=== PATIENT | male | born 1955 | race Caucasian/White ===

== ENCOUNTER 2016-10-04 15:15 | Emergency (ER) | payer SELFPAY ==
[2016-10-04] MEDS ORDERED: AMMONIA INHALANTS 10 AMPUL/BOX IH ONE ×2 (16:09→16:11)
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
[2016-10-04] MEDS ORDERED: IPRATROPIUM/ALBUTEROL 0.5-2.5 MG/3 ML AMPUL NEB ONE (16:15)
[2016-10-04 17:27] LABS: APPEARANCE,URINE CLEAR; BILIRUBIN,URINE NEGATIVE (NEGATIVE); GLUCOSE, URINE NEGATIVE (NEGATIVE); KETONES,URINE NEGATIVE (NEGATIVE); LEUKOCYTE ESTERASE,URINE NEGATIVE (NEGATIVE); NITRITE,URINE NEGATIVE (NEGATIVE); PROTEIN,URINE NEGATIVE (NEGATIVE); URINE SPECIFIC GRAVITY 1.002; UROBILINOGEN,URINE NEGATIVE mg/dL (<2.0)
[2016-10-04 17:29] LABS: ABSOLUTE BASOPHILS # (AUTO) 0.1 10^3/uL (0.0-0.2); ABSOLUTE EOSINOPHILS # (AUTO) 0.3 10^3/uL (0.0-0.6); ABSOLUTE LYMPHOCYTES (AUTO) 2.4 10^3/uL (0.5-4.7); ABSOLUTE MONOCYTES (AUTO) 0.5 10^3/uL (0.1-1.4); ABSOLUTE NEUT (AUTO) 3.3 10^3/uL (1.7-8.2); BASOPHILS % (AUTO) 0.8 % (0-2); EOSINOPHILS % (AUTO) 4.6 % (0-6); HEMOGLOBIN 14.4 g/dL (13.5-17.0); HGB HCT DIFFERENCE 0.2; LYMPHOCYTES % (AUTO) 36.3 % (13-45); MEAN CORPUSCULAR HEMOGLOBIN 32.2 pg (27.0-33.4); MEAN CORPUSCULAR HGB CONC 33.5 g/dL (32.0-36.0); MEAN CORPUSCULAR VOLUME 96 fl (80-97); MONOCYTES % (AUTO) 7.7 % (3-13); RED BLOOD COUNT 4.46 10^6/uL (4.35-5.55); RED CELL DISTRIBUTION WIDTH 13.3 % (11.5-14.0); SEGMENTED NEUTROPHILS % (AUTO) 50.6 % (42-78); WHITE BLOOD COUNT 6.6 10^3/uL (4.0-10.5)
[2016-10-04 17:42] LABS: URINE BARBITURATES SCREEN NEGATIVE; URINE METHADONE SCREEN NEGATIVE; URINE OPIATES LOW NEGATIVE; URINE PHENCYCLIDINE SCREEN NEGATIVE
[2016-10-04 18:17] LABS: ALANINE AMINOTRANSFERASE 31 U/L (21-72); ALBUMIN 4.2 g/dL (3.5-5.0); ALCOHOL 202 mg/dL (NONE DETECTED); ALKALINE PHOSPHATASE 105 U/L (38-126); ANION GAP 13 (5-19); ASPARTATE AMINO TRANSFERASE 31 U/L (17-59); BILIRUBIN,TOTAL 0.4 mg/dL (0.2-1.3); BLOOD UREA NITROGEN 12 mg/dL (7-20); CALCIUM 9.3 mg/dL (8.4-10.2); CARBON DIOXIDE 27 mmol/L (22-30); CHLORIDE 105 mmol/L (98-107); CREATININE RESULT 1.11 mg/dL (0.52-1.25); GLUCOSE 87 mg/dL (75-110); POTASSIUM 4.2 mmol/L (3.6-5.0); SODIUM 145.4 mmol/L (137-145); TOTAL PROTEIN 6.9 g/dL (6.3-8.2)
[2016-10-04 18:31] VITALS: BP 117/78
[2016-10-04] MEDS ORDERED: LORAZEPAM 0.5 MG TABLET PO ONE (19:10)
== END 2016-10-04 20:41 ==
LOC: ER 15:15
DX: R41.82 Altered mental status, unspecified (principal); R06.2 Wheezing; F10.229 Alcohol dependence with intoxication, unspecified; E03.9 Hypothyroidism, unspecified; K21.9 Gastro-esophageal reflux disease without esophagitis; Z88.0 Allergy status to penicillin; Z88.2 Allergy status to sulfonamides
CPT/HCPCS: 94640; 99285; 36415; 87040; 80307 ×2; 85025; 80053; 81001; 71010; 70450; J7620

== ENCOUNTER 2016-10-15 23:06 | Emergency (ER) | payer SELFPAY ==
[2016-10-15] MEDS ORDERED: IPRATROPIUM/ALBUTEROL 0.5-2.5 MG/3 ML AMPUL NEB ONE (23:27)
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
[2016-10-15 23:54] LABS: ABSOLUTE BASOPHILS # (AUTO) 0.1 10^3/uL (0.0-0.2); ABSOLUTE EOSINOPHILS # (AUTO) 0.3 10^3/uL (0.0-0.6); ABSOLUTE LYMPHOCYTES (AUTO) 3.6 10^3/uL (0.5-4.7); ABSOLUTE MONOCYTES (AUTO) 0.7 10^3/uL (0.1-1.4); ABSOLUTE NEUT (AUTO) 5.9 10^3/uL (1.7-8.2); BASOPHILS % (AUTO) 0.6 % (0-2); EOSINOPHILS % (AUTO) 2.6 % (0-6); HEMATOCRIT 42.5 % (37.9-51.0); HEMOGLOBIN 14.3 g/dL (13.5-17.0); HGB HCT DIFFERENCE 0.4; MEAN CORPUSCULAR HEMOGLOBIN 32.4 pg (27.0-33.4); MEAN CORPUSCULAR HGB CONC 33.7 g/dL (32.0-36.0); MEAN CORPUSCULAR VOLUME 96 fl (80-97); MONOCYTES % (AUTO) 6.9 % (3-13); RED BLOOD COUNT 4.42 10^6/uL (4.35-5.55); RED CELL DISTRIBUTION WIDTH 13.3 % (11.5-14.0); SEGMENTED NEUTROPHILS % (AUTO) 55.9 % (42-78); WHITE BLOOD COUNT 10.6 10^3/uL (4.0-10.5)
--- NOTE | 2016-10-16 00:05 | EKG REPORT ---
SEVERITY:- ABNORMAL ECG - SINUS RHYTHM LEFT ANTERIOR FASCICULAR BLOCK : Confirmed by: aDnay Queen 16-Oct-2016 00:03:38
[2016-10-16 00:13] LABS: ALANINE AMINOTRANSFERASE 34 U/L (21-72); ALBUMIN 4.5 g/dL (3.5-5.0); ALCOHOL 250 mg/dL (NONE DETECTED); ALKALINE PHOSPHATASE 101 U/L (38-126); ANION GAP 15 (5-19); ASPARTATE AMINO TRANSFERASE 28 U/L (17-59); BILIRUBIN,TOTAL 0.3 mg/dL (0.2-1.3); BLOOD UREA NITROGEN 11 mg/dL (7-20); CALCIUM 9.2 mg/dL (8.4-10.2); CARBON DIOXIDE 24 mmol/L (22-30); CHLORIDE 105 mmol/L (98-107); CREATININE RESULT 1.24 mg/dL (0.52-1.25); GLUCOSE 107 mg/dL (75-110); LIPASE 82.1 U/L (23-300); SODIUM 144.4 mmol/L (137-145)
[2016-10-16] MEDS ORDERED: IPRATROPIUM/ALBUTEROL 0.5-2.5 MG/3 ML AMPUL NEB ONE (01:17)
[2016-10-16 05:43] LABS: APPEARANCE,URINE CLEAR; BILIRUBIN,URINE NEGATIVE (NEGATIVE); GLUCOSE, URINE NEGATIVE (NEGATIVE); KETONES,URINE NEGATIVE (NEGATIVE); LEUKOCYTE ESTERASE,URINE NEGATIVE (NEGATIVE); NITRITE,URINE NEGATIVE (NEGATIVE); PROTEIN,URINE NEGATIVE (NEGATIVE); URINE SPECIFIC GRAVITY 1.009; UROBILINOGEN,URINE NEGATIVE mg/dL (<2.0)
[2016-10-16 05:58] LABS: URINE BARBITURATES SCREEN NEGATIVE; URINE METHADONE SCREEN NEGATIVE; URINE OPIATES LOW NEGATIVE; URINE PHENCYCLIDINE SCREEN NEGATIVE
[2016-10-16] MEDS ORDERED: FAMOTIDINE 20 MG TABLET PO ONE (06:06)
[2016-10-16] MEDS ORDERED: SUCRALFATE 1 GM TABLET PO ONE (06:06)
[2016-10-16 09:43] VITALS: BP 140/82
== END 2016-10-16 09:43 | disposition home or self-care (01) ==
LOC: ER 23:06
DX: F10.120 Alcohol abuse with intoxication, uncomplicated (principal); F17.210 Nicotine dependence, cigarettes, uncomplicated; J44.9 Chronic obstructive pulmonary disease, unspecified; J45.909 Unspecified asthma, uncomplicated; Z88.0 Allergy status to penicillin; Z88.2 Allergy status to sulfonamides
CPT/HCPCS: 36415; 71010; 80053; 80307; 81001; 83690; 85025; 93005; 93010; 99285

== ENCOUNTER 2016-10-16 18:59 | Emergency (ER) | payer SELFPAY ==
[2016-10-16] MEDS ORDERED: DIAZEPAM 5 MG TABLET PO ONE (20:26)
[2016-10-16] MEDS ORDERED: LIDOCAINE 2% VISCOUS SOLN 20 ML UDCUP PO ONE (20:27)
[2016-10-16] MEDS ORDERED: MAG HYDROX/AL HYDROX/SIMETH SUSP 30 ML UDCUP PO ONE (20:27)
[2016-10-16] MEDS ORDERED: METOCLOPRAMIDE HCL ORAL SOLN 10 MG/10 ML UDCUP PO ONE (20:27)
[2016-10-16] MEDS ORDERED: NICOTINE 21 MG/24 HR PATCH.TD24 TD ONE (20:29)
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
[2016-10-16 21:58] LABS: ABSOLUTE BASOPHILS # (AUTO) 0.1 10^3/uL (0.0-0.2); ABSOLUTE EOSINOPHILS # (AUTO) 0.2 10^3/uL (0.0-0.6); ABSOLUTE LYMPHOCYTES (AUTO) 2.6 10^3/uL (0.5-4.7); ABSOLUTE MONOCYTES (AUTO) 0.5 10^3/uL (0.1-1.4); ABSOLUTE NEUT (AUTO) 3.7 10^3/uL (1.7-8.2); BASOPHILS % (AUTO) 0.7 % (0-2); EOSINOPHILS % (AUTO) 2.8 % (0-6); HEMATOCRIT 39.4 % (37.9-51.0); HEMOGLOBIN 13.6 g/dL (13.5-17.0); HGB HCT DIFFERENCE 1.4; LYMPHOCYTES % (AUTO) 36.8 % (13-45); MEAN CORPUSCULAR HEMOGLOBIN 32.9 pg (27.0-33.4); MEAN CORPUSCULAR HGB CONC 34.4 g/dL (32.0-36.0); MEAN CORPUSCULAR VOLUME 96 fl (80-97); MONOCYTES % (AUTO) 7.2 % (3-13); RED BLOOD COUNT 4.13 10^6/uL (4.35-5.55); RED CELL DISTRIBUTION WIDTH 13.7 % (11.5-14.0); SEGMENTED NEUTROPHILS % (AUTO) 52.5 % (42-78); WHITE BLOOD COUNT 7.1 10^3/uL (4.0-10.5)
[2016-10-16 22:14] LABS: ALANINE AMINOTRANSFERASE 28 U/L (21-72); ALBUMIN 3.9 g/dL (3.5-5.0); ALCOHOL 105 mg/dL (NONE DETECTED); ALKALINE PHOSPHATASE 95 U/L (38-126); ANION GAP 11 (5-19); ASPARTATE AMINO TRANSFERASE 28 U/L (17-59); BILIRUBIN,TOTAL 0.3 mg/dL (0.2-1.3); BLOOD UREA NITROGEN 13 mg/dL (7-20); CARBON DIOXIDE 26 mmol/L (22-30); CHLORIDE 107 mmol/L (98-107); CREATININE RESULT 1.17 mg/dL (0.52-1.25); GLUCOSE 96 mg/dL (75-110); POTASSIUM 3.8 mmol/L (3.6-5.0); SODIUM 143.9 mmol/L (137-145); TOTAL PROTEIN 6.4 g/dL (6.3-8.2)
[2016-10-16 22:28] LABS: APPEARANCE,URINE CLEAR; BILIRUBIN,URINE NEGATIVE (NEGATIVE); GLUCOSE, URINE NEGATIVE (NEGATIVE); KETONES,URINE NEGATIVE (NEGATIVE); LEUKOCYTE ESTERASE,URINE NEGATIVE (NEGATIVE); NITRITE,URINE NEGATIVE (NEGATIVE); PROTEIN,URINE NEGATIVE (NEGATIVE); URINE SPECIFIC GRAVITY 1.003; UROBILINOGEN,URINE NEGATIVE mg/dL (<2.0)
[2016-10-16 22:45] LABS: URINE BARBITURATES SCREEN NEGATIVE; URINE METHADONE SCREEN NEGATIVE; URINE OPIATES LOW NEGATIVE; URINE PHENCYCLIDINE SCREEN NEGATIVE
[2016-10-17 03:33] VITALS: BP 128/78
== END 2016-10-17 03:45 | disposition home or self-care (01) ==
LOC: ER 18:59
DX: F10.120 Alcohol abuse with intoxication, uncomplicated (principal); J44.9 Chronic obstructive pulmonary disease, unspecified; J45.909 Unspecified asthma, uncomplicated; E03.9 Hypothyroidism, unspecified; F17.200 Nicotine dependence, unspecified, uncomplicated; Z88.0 Allergy status to penicillin; Z88.2 Allergy status to sulfonamides
CPT/HCPCS: 99284; 36415; 80307 ×4; 85025; 80053; 81001; J3490

== ENCOUNTER 2016-10-17 11:45 | Emergency (ER) | payer SELFPAY ==
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
[2016-10-17 12:51] LABS: ABSOLUTE BASOPHILS # (AUTO) 0.1 10^3/uL (0.0-0.2); ABSOLUTE EOSINOPHILS # (AUTO) 0.1 10^3/uL (0.0-0.6); ABSOLUTE LYMPHOCYTES (AUTO) 2.6 10^3/uL (0.5-4.7); ABSOLUTE MONOCYTES (AUTO) 0.6 10^3/uL (0.1-1.4); ABSOLUTE NEUT (AUTO) 7.4 10^3/uL (1.7-8.2); BASOPHILS % (AUTO) 0.8 % (0-2); HEMATOCRIT 41.3 % (37.9-51.0); HEMOGLOBIN 14.1 g/dL (13.5-17.0); LYMPHOCYTES % (AUTO) 24.5 % (13-45); MEAN CORPUSCULAR HEMOGLOBIN 32.6 pg (27.0-33.4); MEAN CORPUSCULAR HGB CONC 34.2 g/dL (32.0-36.0); MEAN CORPUSCULAR VOLUME 95 fl (80-97); MONOCYTES % (AUTO) 5.8 % (3-13); RED BLOOD COUNT 4.34 10^6/uL (4.35-5.55); RED CELL DISTRIBUTION WIDTH 13.5 % (11.5-14.0); SEGMENTED NEUTROPHILS % (AUTO) 67.9 % (42-78); WHITE BLOOD COUNT 10.8 10^3/uL (4.0-10.5)
[2016-10-17 13:09] LABS: ALANINE AMINOTRANSFERASE 34 U/L (21-72); ALBUMIN 4.6 g/dL (3.5-5.0); ALCOHOL 176 mg/dL (NONE DETECTED); ALKALINE PHOSPHATASE 111 U/L (38-126); ANION GAP 10 (5-19); ASPARTATE AMINO TRANSFERASE 31 U/L (17-59); BILIRUBIN,TOTAL 0.4 mg/dL (0.2-1.3); BLOOD UREA NITROGEN 13 mg/dL (7-20); CALCIUM 9.7 mg/dL (8.4-10.2); CARBON DIOXIDE 27 mmol/L (22-30); CHLORIDE 107 mmol/L (98-107); CREATININE RESULT 1.06 mg/dL (0.52-1.25); GLUCOSE 91 mg/dL (75-110); POTASSIUM 4.4 mmol/L (3.6-5.0); SODIUM 143.9 mmol/L (137-145); TOTAL PROTEIN 7.4 g/dL (6.3-8.2)
[2016-10-17 17:35] VITALS: BP 118/75
== END 2016-10-17 17:26 | disposition home or self-care (01) ==
LOC: ER 11:45
DX: F10.229 Alcohol dependence with intoxication, unspecified (principal); R45.851 Suicidal ideations; J44.9 Chronic obstructive pulmonary disease, unspecified; J45.909 Unspecified asthma, uncomplicated; F17.210 Nicotine dependence, cigarettes, uncomplicated; Z88.0 Allergy status to penicillin; Z88.2 Allergy status to sulfonamides
CPT/HCPCS: 36415; 80053; 80307; 85025; 99285

== ENCOUNTER 2016-10-17 21:09 | Emergency (ER) | payer SELFPAY ==
[2016-10-17] MEDS ORDERED: IPRATROPIUM/ALBUTEROL 0.5-2.5 MG/3 ML AMPUL NEB ONE (21:55)
[2016-10-17] MEDS ORDERED: PREDNISONE 20 MG TABLET PO ONE (21:55)
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
[2016-10-17] MEDS ORDERED: ALBUTEROL SULFATE 0.083% NEB 2.5 MG/3 ML AMPUL NEB SCH (22:11)
[2016-10-17 22:38] LABS: ABSOLUTE BASOPHILS # (AUTO) 0.1 10^3/uL (0.0-0.2); ABSOLUTE EOSINOPHILS # (AUTO) 0.1 10^3/uL (0.0-0.6); ABSOLUTE LYMPHOCYTES (AUTO) 2.4 10^3/uL (0.5-4.7); ABSOLUTE MONOCYTES (AUTO) 0.7 10^3/uL (0.1-1.4); ABSOLUTE NEUT (AUTO) 3.6 10^3/uL (1.7-8.2); EOSINOPHILS % (AUTO) 2.1 % (0-6); HEMATOCRIT 42.7 % (37.9-51.0); HEMOGLOBIN 14.5 g/dL (13.5-17.0); HGB HCT DIFFERENCE 0.8; LYMPHOCYTES % (AUTO) 35.5 % (13-45); MEAN CORPUSCULAR HEMOGLOBIN 32.4 pg (27.0-33.4); MEAN CORPUSCULAR VOLUME 95 fl (80-97); MONOCYTES % (AUTO) 9.5 % (3-13); RED BLOOD COUNT 4.48 10^6/uL (4.35-5.55); RED CELL DISTRIBUTION WIDTH 13.5 % (11.5-14.0); SEGMENTED NEUTROPHILS % (AUTO) 51.9 % (42-78); WHITE BLOOD COUNT 6.9 10^3/uL (4.0-10.5)
[2016-10-17 22:49] LABS: ALANINE AMINOTRANSFERASE 59 U/L (21-72); ALBUMIN 4.6 g/dL (3.5-5.0); ALKALINE PHOSPHATASE 112 U/L (38-126); ANION GAP 14 (5-19); ASPARTATE AMINO TRANSFERASE 85 U/L (17-59); BILIRUBIN,TOTAL 0.4 mg/dL (0.2-1.3); BLOOD UREA NITROGEN 12 mg/dL (7-20); CALCIUM 9.8 mg/dL (8.4-10.2); CARBON DIOXIDE 26 mmol/L (22-30); CHLORIDE 102 mmol/L (98-107); CREATININE RESULT 1.07 mg/dL (0.52-1.25); GLUCOSE 92 mg/dL (75-110); POTASSIUM 4.3 mmol/L (3.6-5.0); SODIUM 141.5 mmol/L (137-145); TOTAL PROTEIN 7.3 g/dL (6.3-8.2)
[2016-10-18] MEDS ORDERED: ALBUTEROL SULFATE HFA (90 MCG/PUFF) 8 GM MDI (1 MDI/ER DISP) IH ONE (01:49)
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
[2016-10-18 02:14] VITALS: BP 120/77
== END 2016-10-18 02:10 | disposition home or self-care (01) ==
LOC: ER 21:09
DX: J44.1 Chronic obstructive pulmonary disease with (acute) exacerbation (principal); J45.909 Unspecified asthma, uncomplicated; F17.200 Nicotine dependence, unspecified, uncomplicated; R05 Cough; Z88.0 Allergy status to penicillin; Z88.2 Allergy status to sulfonamides
CPT/HCPCS: 94640 ×2; 99285; 36415; 85025; 80053; 71010; J7512; J3490; J7620

== ENCOUNTER 2016-10-18 22:22 | Emergency (ER) | payer SELFPAY ==
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
[2016-10-18] MEDS ORDERED: NORMAL SALINE 1000 ML 1,000 ML IV PRN (23:50)
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
[2016-10-19 06:39] VITALS: BP 130/78
== END 2016-10-19 06:40 | disposition home or self-care (01) ==
LOC: ER 22:22
DX: F10.229 Alcohol dependence with intoxication, unspecified (principal); J44.9 Chronic obstructive pulmonary disease, unspecified; J45.909 Unspecified asthma, uncomplicated; Z88.0 Allergy status to penicillin; Z88.2 Allergy status to sulfonamides
CPT/HCPCS: 99284

== ENCOUNTER 2016-10-19 21:19 | Emergency (ER) | payer SELFPAY ==
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
[2016-10-20 02:23] LABS: APPEARANCE,URINE CLEAR; BILIRUBIN,URINE NEGATIVE (NEGATIVE); GLUCOSE, URINE NEGATIVE (NEGATIVE); KETONES,URINE NEGATIVE (NEGATIVE); LEUKOCYTE ESTERASE,URINE NEGATIVE (NEGATIVE); NITRITE,URINE NEGATIVE (NEGATIVE); PROTEIN,URINE NEGATIVE (NEGATIVE); URINE SPECIFIC GRAVITY 1.018; UROBILINOGEN,URINE NEGATIVE mg/dL (<2.0)
[2016-10-20 02:24] LABS: ALANINE AMINOTRANSFERASE 54 U/L (21-72); ALBUMIN 3.7 g/dL (3.5-5.0); ALKALINE PHOSPHATASE 97 U/L (38-126); ANION GAP 11 (5-19); ASPARTATE AMINO TRANSFERASE 45 U/L (17-59); BILIRUBIN,TOTAL 0.4 mg/dL (0.2-1.3); BLOOD UREA NITROGEN 17 mg/dL (7-20); CALCIUM 9.5 mg/dL (8.4-10.2); CARBON DIOXIDE 24 mmol/L (22-30); CHLORIDE 105 mmol/L (98-107); CREATININE RESULT 1.07 mg/dL (0.52-1.25); GLUCOSE 89 mg/dL (75-110); SODIUM 139.8 mmol/L (137-145); TOTAL PROTEIN 6.9 g/dL (6.3-8.2)
[2016-10-20 02:38] LABS: URINE BARBITURATES SCREEN NEGATIVE; URINE METHADONE SCREEN NEGATIVE; URINE OPIATES LOW NEGATIVE; URINE PHENCYCLIDINE SCREEN NEGATIVE
[2016-10-20 02:44] LABS: ALCOHOL < 10 mg/dL (NONE DETECTED)
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
[2016-10-20 10:08] VITALS: BP 125/72
--- NOTE | 2016-10-20 10:13 | ER Document Report ---
Doctor's Note Notes: 10/20/16 10:11 Rounds: Chart reviewed and patient interviewed. Patient claims to be suicidal, although he has expressed that feeling on several occasions recently. He's been to this emergency department 7 separate visits for mental health problems or assessment in the year 2017 (7 weeks). On most these visits, the patient has been intoxicated. He is sober on this visit. Vital signs are all normal. Lab studies are essentially normal. CBC is missing, but he just had one done 48 hours ago on his previous visit to the ED and that CBC was essentially normal. Patient has been assessed by mental health and they feel he can be discharged for outpatient follow-up and detox at [facility]. Nadege Knight M.D.
--- NOTE | 2016-10-20 10:22 | PSYCHOLOGICAL NOTE ---
Psych Note - Psych Note Psych Note: PHYSICIAN CONSIDERATION Patient is well known to this Provider and the ED staff. He continues to present with reported suicidal ideation or intoxication, stating he desires detox or demanding inpatient psychiatric hospitalization. As documented throughout Patient's admissions to this hospital, he has 50-100 inpatient hospitalization and incarcerations. He is accustomed to being institutionalized and believes others are responsible for meeting his social needs (i.e. housing, food, money, etc.) Patient refuses to follow up with outpatient referrals to include psychiatry or substance abuse. He reports being out of his antidepressant medication, but he will not take the medication and will not go to a provider for follow up or for continued prescription. Patient utilizes the ED as fdc and for food. He makes demanding threats and ultimatums in an effort to get his needs met. He refuses to follow discharge instructions and continues to prefer to buy alcohol and prescription medications (i.e. benzodiazepines, stimulants, etc.) off the street versus obtaining them from a psychiatric provider. Patient was recently released from a 10-day prison stay after leaving the area once he found a warrant was out for his arrest. Since his release from prison on , he has presented to the ED approximately 5 times either for intoxication" or for "suicidal ideation" or detox. However, Patient does not meet detox criteria, continues to provide ultimatums for his discharge, and has no reasonable or discernable intent or plan for suicide. It is recommended that when this Patient presents to the ED, the ED Provider carefully vet the Patient's motives and assess his symptoms given his manipulation and continued abuse of ED services. Pattern of admission shows he generally show in the evening so he has a place to sleep for the evening and can obtain breakfast before discharge. Please consider his manipulative pattern when fully assessing and his desired outcome when determining disposition. Please contact behavioral team at any time to assist in this process if needed. I can be reached at [phone]
--- NOTE | 2016-10-20 10:24 | PSYCHOLOGICAL NOTE ---
Psych Note - Psych Note Psych Note: Patient is a 61 year old male who presented overnight reporting SI and also requesting assistance with detox placement. Patient is well known to this department and this clinician for multiple prior episodes of similar etiology. Note, patient presented 10/18; 10/17 x2; and 10/16. Patient denied SI each episode , and was infact discharged after his overnight visit the morning of 10/19 after he denied SI. Patient this morning states he would like detox and has been talking with a mobile crisis provider, of which he cannot remember. Patient was clinically sober when he presented overnight. Patient this morning denies suicidal ideations, intent, plan, or means. Patient is overheard stating he does not have the time to wait around to be seen by a provider. Patient is A&Ox4. Mood is irritable with congruent affect. Patient denies SI/ HI. Patient denies A/V H; delusions not noted. Thought processes were organized. Conversational speech was WNl for this patient. Intellectual abilities were estimated within average range. Attention and focus were poor. Insight, judgment, and impulse control were poor. 291.9 (F10.99) Unspecified Alcohol-Related Disorder Patient is psychiatrically cleared for discharge. Patient's overall presentation is more congruent with attempting to meet his basic needs by misuse of the emergency medical and mental health systems, eg housing, food, etc. A careful review of the patient's record suggests no prior suicide attempts, but a lengthy history of numerous presentations congruent with today' s episode, of similar etiology. Patient is strongly encouraged to pursue SA assessment and treatment given his daily ETOH abuse. I consulted with Dr. Catalan in regards to the care and management of this patient.
--- NOTE | 2016-10-20 10:44 | EKG REPORT ---
SEVERITY:- ABNORMAL ECG - SINUS RHYTHM LEFT ANTERIOR FASCICULAR BLOCK : Confirmed by: Danay Queen 20-Oct-2016 10:43:57
== END 2016-10-20 10:55 | disposition home or self-care (01) ==
LOC: ER 21:19
DX: R45.851 Suicidal ideations (principal); F10.10 Alcohol abuse, uncomplicated
CPT/HCPCS: 36415; 80053; 80307; 81001; 93005; 93010; 99285

== ENCOUNTER 2016-10-22 11:55 | Emergency (ER) | payer SELFPAY ==
[2016-10-22 12:52] LABS: ABSOLUTE BASOPHILS # (AUTO) 0.1 10^3/uL (0.0-0.2); ABSOLUTE EOSINOPHILS # (AUTO) 0.3 10^3/uL (0.0-0.6); ABSOLUTE LYMPHOCYTES (AUTO) 3.4 10^3/uL (0.5-4.7); ABSOLUTE MONOCYTES (AUTO) 0.4 10^3/uL (0.1-1.4); ABSOLUTE NEUT (AUTO) 3.7 10^3/uL (1.7-8.2); BASOPHILS % (AUTO) 0.8 % (0-2); EOSINOPHILS % (AUTO) 3.4 % (0-6); HEMATOCRIT 43.1 % (37.9-51.0); HEMOGLOBIN 14.6 g/dL (13.5-17.0); HGB HCT DIFFERENCE 0.7; LYMPHOCYTES % (AUTO) 43.4 % (13-45); MEAN CORPUSCULAR HEMOGLOBIN 32.5 pg (27.0-33.4); MEAN CORPUSCULAR VOLUME 96 fl (80-97); MONOCYTES % (AUTO) 5.2 % (3-13); RED BLOOD COUNT 4.51 10^6/uL (4.35-5.55); RED CELL DISTRIBUTION WIDTH 13.7 % (11.5-14.0); SEGMENTED NEUTROPHILS % (AUTO) 47.2 % (42-78); WHITE BLOOD COUNT 7.8 10^3/uL (4.0-10.5)
[2016-10-22 13:12] LABS: APPEARANCE,URINE CLEAR; BILIRUBIN,URINE NEGATIVE (NEGATIVE); GLUCOSE, URINE NEGATIVE (NEGATIVE); KETONES,URINE NEGATIVE (NEGATIVE); LEUKOCYTE ESTERASE,URINE NEGATIVE (NEGATIVE); NITRITE,URINE NEGATIVE (NEGATIVE); PROTEIN,URINE NEGATIVE (NEGATIVE); URINE SPECIFIC GRAVITY 1.005; UROBILINOGEN,URINE NEGATIVE mg/dL (<2.0)
[2016-10-22 13:17] LABS: ALANINE AMINOTRANSFERASE 50 U/L (21-72); ALBUMIN 3.9 g/dL (3.5-5.0); ALCOHOL 219 mg/dL (NONE DETECTED); ALKALINE PHOSPHATASE 111 U/L (38-126); ANION GAP 11 (5-19); ASPARTATE AMINO TRANSFERASE 40 U/L (17-59); BILIRUBIN,TOTAL 0.3 mg/dL (0.2-1.3); BLOOD UREA NITROGEN 20 mg/dL (7-20); CALCIUM 9.3 mg/dL (8.4-10.2); CARBON DIOXIDE 24 mmol/L (22-30); CHLORIDE 105 mmol/L (98-107); CREATININE RESULT 1.02 mg/dL (0.52-1.25); GLUCOSE 87 mg/dL (75-110); POTASSIUM 4.6 mmol/L (3.6-5.0); SODIUM 140.3 mmol/L (137-145); TOTAL PROTEIN 7.3 g/dL (6.3-8.2)
[2016-10-22 13:27] LABS: URINE BARBITURATES SCREEN NEGATIVE; URINE METHADONE SCREEN NEGATIVE; URINE OPIATES LOW NEGATIVE; URINE PHENCYCLIDINE SCREEN NEGATIVE
--- NOTE | 2016-10-22 13:35 | PSYCHOLOGICAL NOTE ---
Psych Note - Psych Note Psych Note: Patient is a 61 year old male who presents via [employer] under IVC petitioned by [facility] Mobile Crisis. Patient is well known to this Clinician and this Department for multiple prior episodes of alcohol related incidences. Patient is acutely intoxicated with a BAL 219. Patient will be evaluated at a later time.
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
[2016-10-22] MEDS ORDERED: IPRATROPIUM/ALBUTEROL 0.5-2.5 MG/3 ML AMPUL NEB ONE (20:20)
[2016-10-22 20:23] VITALS: BP 147/83
[2016-10-22] MEDS: ALBUTEROL SULFATE 0.083% NEB 2.5 MG/3 ML AMPUL NEB SCH ×2 (20:43→20:56)
--- NOTE | 2016-10-22 22:03 | EKG REPORT ---
SEVERITY:- ABNORMAL ECG - SINUS RHYTHM LEFT ANTERIOR FASCICULAR BLOCK : Confirmed by: Neyda Ag MD 22-Oct-2016 22:03:24
--- NOTE | 2016-10-22 22:58 | ER Document Report ---
Doctor's Note Notes: 10/22/16 22:57 I personally performed the services described in the documentation, reviewed and edited the documentation which was dictated to my scribe in my presence, and it accurately records my words and actions. Patient evaluated throughout the evening he is awake and alert GCS of 15 able to make his own decisions. He is not suicidal or homicidal. He is of sound mind and judgment able to make his own decisions and is stable to be discharged at that this point. He is not acutely psychotic nor is he a threat to himself or others
== END 2016-10-22 23:29 | disposition home or self-care (01) ==
LOC: ER 11:55
DX: F10.229 Alcohol dependence with intoxication, unspecified (principal); R45.851 Suicidal ideations; F17.210 Nicotine dependence, cigarettes, uncomplicated; J44.9 Chronic obstructive pulmonary disease, unspecified; J45.909 Unspecified asthma, uncomplicated; Z88.0 Allergy status to penicillin; Z88.2 Allergy status to sulfonamides
CPT/HCPCS: 93005; 94640 ×2; 99285; 36415; 80307 ×4; 85025; 80053; 81001; 93010; J7620

== ENCOUNTER 2016-10-24 14:11 | Emergency (ER) | payer SELFPAY ==
[2016-10-24 14:54] VITALS: BP 100/69
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
[2016-10-24 15:41] LABS: ABSOLUTE BASOPHILS # (AUTO) 0.1 10^3/uL (0.0-0.2); ABSOLUTE EOSINOPHILS # (AUTO) 0.1 10^3/uL (0.0-0.6); ABSOLUTE LYMPHOCYTES (AUTO) 3.2 10^3/uL (0.5-4.7); ABSOLUTE MONOCYTES (AUTO) 0.5 10^3/uL (0.1-1.4); BASOPHILS % (AUTO) 0.6 % (0-2); EOSINOPHILS % (AUTO) 1.7 % (0-6); HEMATOCRIT 44.7 % (37.9-51.0); HEMOGLOBIN 15.3 g/dL (13.5-17.0); HGB HCT DIFFERENCE 1.2; MEAN CORPUSCULAR HGB CONC 34.3 g/dL (32.0-36.0); MEAN CORPUSCULAR VOLUME 96 fl (80-97); MONOCYTES % (AUTO) 5.3 % (3-13); RED BLOOD COUNT 4.63 10^6/uL (4.35-5.55); RED CELL DISTRIBUTION WIDTH 13.7 % (11.5-14.0); SEGMENTED NEUTROPHILS % (AUTO) 56.4 % (42-78); WHITE BLOOD COUNT 8.8 10^3/uL (4.0-10.5)
[2016-10-24 16:00] LABS: ALANINE AMINOTRANSFERASE 42 U/L (21-72); ALBUMIN 4.3 g/dL (3.5-5.0); ALCOHOL 196 mg/dL (NONE DETECTED); ALKALINE PHOSPHATASE 118 U/L (38-126); ASPARTATE AMINO TRANSFERASE 35 U/L (17-59); BILIRUBIN,TOTAL 0.5 mg/dL (0.2-1.3); BLOOD UREA NITROGEN 22 mg/dL (7-20); CALCIUM 9.4 mg/dL (8.4-10.2); CARBON DIOXIDE 17 mmol/L (22-30); CREATININE RESULT 1.21 mg/dL (0.52-1.25); GLUCOSE 110 mg/dL (75-110); TOTAL PROTEIN 7.5 g/dL (6.3-8.2)
[2016-10-24 16:07] LABS: CHLORIDE 104 mmol/L (98-107); POTASSIUM 3.9 mmol/L (3.6-5.0); SODIUM 140.7 mmol/L (137-145)
[2016-10-24 16:11] LABS: ANION GAP 20 (5-19)
== END 2016-10-24 16:15 | disposition left against medical advice (07) ==
LOC: ER 14:11
DX: F10.10 Alcohol abuse, uncomplicated (principal); J44.9 Chronic obstructive pulmonary disease, unspecified; J45.909 Unspecified asthma, uncomplicated; E03.9 Hypothyroidism, unspecified; K21.9 Gastro-esophageal reflux disease without esophagitis; Z88.0 Allergy status to penicillin; Z88.2 Allergy status to sulfonamides
CPT/HCPCS: 36415; 80053; 80307; 85025; 99281

== ENCOUNTER 2016-10-27 22:08 | Emergency (ER) | payer SELFPAY ==
[2016-10-27] MEDS ORDERED: PREDNISONE 20 MG TABLET PO ONE (22:24)
[2016-10-27] MEDS ORDERED: IPRATROPIUM/ALBUTEROL 0.5-2.5 MG/3 ML AMPUL NEB ONE (22:24)
[2016-10-27 23:01] LABS: APPEARANCE,URINE CLEAR; BILIRUBIN,URINE NEGATIVE (NEGATIVE); GLUCOSE, URINE NEGATIVE (NEGATIVE); KETONES,URINE NEGATIVE (NEGATIVE); LEUKOCYTE ESTERASE,URINE NEGATIVE (NEGATIVE); NITRITE,URINE NEGATIVE (NEGATIVE); PROTEIN,URINE NEGATIVE (NEGATIVE); URINE SPECIFIC GRAVITY 1.002; UROBILINOGEN,URINE NEGATIVE mg/dL (<2.0)
[2016-10-28] MEDS ORDERED: KETOROLAC TROMETHAMINE INJ/PF 30 MG/1 ML SDV IV ONE (01:02)
[2016-10-28] MEDS ORDERED: MAG HYDROX/AL HYDROX/SIMETH SUSP 30 ML UDCUP PO ONE (01:02)
[2016-10-28] MEDS ORDERED: LIDOCAINE 2% VISCOUS SOLN 20 ML UDCUP PO ONE (01:02)
[2016-10-28] MEDS ORDERED: METOCLOPRAMIDE HCL ORAL SOLN 10 MG/10 ML UDCUP PO ONE (01:02)
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
[2016-10-28 03:47] VITALS: BP 133/72
== END 2016-10-28 03:46 | disposition home or self-care (01) ==
LOC: ER 22:08
DX: R07.9 Chest pain, unspecified (principal); R05 Cough; F17.200 Nicotine dependence, unspecified, uncomplicated; J45.909 Unspecified asthma, uncomplicated; J44.9 Chronic obstructive pulmonary disease, unspecified; E03.9 Hypothyroidism, unspecified; Z88.0 Allergy status to penicillin; Z88.2 Allergy status to sulfonamides
CPT/HCPCS: 99285; 96374; 36415; 81001; 84484; 71010; J3490; J1885; J7512; J7620

== ENCOUNTER 2016-10-28 20:07 | Observation (INO) | payer SELFPAY ==
[2016-10-28] MEDS ORDERED: IPRATROPIUM/ALBUTEROL 0.5-2.5 MG/3 ML AMPUL NEB ONE (20:40)
[2016-10-28] MEDS: ALBUTEROL SULFATE 0.083% NEB 2.5 MG/3 ML AMPUL NEB SCH ×2 (20:55→22:19)
[2016-10-28 21:01] LABS: ABSOLUTE LYMPHOCYTES (AUTO) 3.6 10^3/uL (0.5-4.7); ABSOLUTE MONOCYTES (AUTO) 0.7 10^3/uL (0.1-1.4); BASOPHILS % (AUTO) 0.5 % (0-2); EOSINOPHILS % (AUTO) 0.5 % (0-6); HEMATOCRIT 40.9 % (37.9-51.0); HEMOGLOBIN 13.9 g/dL (13.5-17.0); HGB HCT DIFFERENCE 0.8; LYMPHOCYTES % (AUTO) 43.3 % (13-45); MEAN CORPUSCULAR HEMOGLOBIN 32.5 pg (27.0-33.4); MEAN CORPUSCULAR HGB CONC 34.1 g/dL (32.0-36.0); MEAN CORPUSCULAR VOLUME 95 fl (80-97); MONOCYTES % (AUTO) 7.9 % (3-13); RED BLOOD COUNT 4.29 10^6/uL (4.35-5.55); RED CELL DISTRIBUTION WIDTH 13.8 % (11.5-14.0); SEGMENTED NEUTROPHILS % (AUTO) 47.8 % (42-78); WHITE BLOOD COUNT 8.3 10^3/uL (4.0-10.5)
[2016-10-28 21:05] LABS: APPEARANCE,URINE CLEAR; BILIRUBIN,URINE NEGATIVE (NEGATIVE); GLUCOSE, URINE NEGATIVE (NEGATIVE); KETONES,URINE NEGATIVE (NEGATIVE); LEUKOCYTE ESTERASE,URINE NEGATIVE (NEGATIVE); NITRITE,URINE NEGATIVE (NEGATIVE); PROTEIN,URINE NEGATIVE (NEGATIVE); URINE SPECIFIC GRAVITY 1.002; UROBILINOGEN,URINE NEGATIVE mg/dL (<2.0)
[2016-10-28 21:19] LABS: URINE BARBITURATES SCREEN NEGATIVE; URINE METHADONE SCREEN NEGATIVE; URINE OPIATES LOW NEGATIVE; URINE PHENCYCLIDINE SCREEN NEGATIVE
[2016-10-28 21:21] LABS: ALANINE AMINOTRANSFERASE 32 U/L (21-72); ALBUMIN 4.3 g/dL (3.5-5.0); ALCOHOL 286 mg/dL (NONE DETECTED); ALKALINE PHOSPHATASE 106 U/L (38-126); ANION GAP 13 (5-19); ASPARTATE AMINO TRANSFERASE 34 U/L (17-59); BILIRUBIN,TOTAL 0.5 mg/dL (0.2-1.3); BLOOD UREA NITROGEN 13 mg/dL (7-20); CALCIUM 9.4 mg/dL (8.4-10.2); CARBON DIOXIDE 25 mmol/L (22-30); CHLORIDE 108 mmol/L (98-107); CREATININE RESULT 0.94 mg/dL (0.52-1.25); GLUCOSE 103 mg/dL (75-110); POTASSIUM 4.1 mmol/L (3.6-5.0); SODIUM 145.6 mmol/L (137-145); TOTAL PROTEIN 7.1 g/dL (6.3-8.2)
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
[2016-10-29 00:49] LABS: ADD ON TESTING BLD IN LAB ACKNOWLEDGE
[2016-10-29 01:13] LABS: MAGNESIUM 2.1 mg/dL (1.6-2.3)
[2016-10-29 01:25] LABS: CREATINE KINASE MB 3.76 ng/mL (<4.55)
[2016-10-29 01:27] LABS: TROPONIN I < 0.012 ng/mL
[2016-10-29] MEDS ORDERED: LORAZEPAM 1 MG TABLET PO PRN (04:26)
[2016-10-29] MEDS ORDERED: IPRATROPIUM/ALBUTEROL 0.5-2.5 MG/3 ML AMPUL NEB PRN (04:28)
[2016-10-29] MEDS ORDERED: 1/2 NORMAL SALINE 1,000 ML IV PRN (04:28)
[2016-10-29] MEDS ORDERED: ACETAMINOPHEN 325 MG TABLET PO PRN (04:31)
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
[2016-10-29] MEDS ORDERED: THIAMINE HCL 100 MG TABLET PO SCH (05:00)
--- NOTE | 2016-10-29 07:59 | EKG REPORT ---
SEVERITY:- ABNORMAL ECG - SINUS RHYTHM LEFT ANTERIOR FASCICULAR BLOCK LOW VOLTAGE IN FRONTAL LEADS : Confirmed by: Handy Blanco MD 29-Oct-2016 07:58:47
[2016-10-29] MEDS ORDERED: ENOXAPARIN SODIUM INJ 40 MG/0.4 ML DISP.SYRIN SUBCUT SCH (08:00)
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
[2016-10-29] MEDS ORDERED: DOCUSATE SODIUM 100 MG CAPSULE PO SCH (10:00)
[2016-10-29] MEDS ORDERED: MULTIVITAMIN TABLET PO SCH (10:00)
[2016-10-29] MEDS ORDERED: FOLIC ACID 1 MG TABLET PO SCH (10:00)
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
[2016-10-29 11:47] VITALS: BP 134/78
== END 2016-10-29 12:10 | disposition home or self-care (01) ==
LOC: ER 20:07 → EH 10-29 02:42 → UNDOADMOB 10-29 02:42 → EH 10-29 04:28
PROVIDERS: ADMIT Family Medicine; ATTEND Family Medicine
DX: F10.229 Alcohol dependence with intoxication, unspecified (principal); G31.2 Degeneration of nervous system due to alcohol; R41.82 Altered mental status, unspecified; K70.30 Alcoholic cirrhosis of liver without ascites; F20.0 Paranoid schizophrenia; J44.9 Chronic obstructive pulmonary disease, unspecified; J45.909 Unspecified asthma, uncomplicated; E03.9 Hypothyroidism, unspecified
CPT/HCPCS: 93005; 36415 ×2; 82553; 80307 ×5; 82140; 82550; 83735; 84443; 85025; 80053; 81001; 84484; 71010; 70450; 72125; 93010; G0378; J1650; J3490; J7620; 94640; 96372; 99291

== ENCOUNTER 2016-10-30 20:38 | Emergency (ER) | payer SELFPAY ==
[2016-10-30] MEDS ORDERED: NORMAL SALINE 1000 ML 1,000 ML IV ONE (21:05)
[2016-10-30] MEDS ORDERED: DIPH/PERTUSS(ACELL)/TETANUS VAC/PF 0.5 ML SYR (>=10YO) IM ONE (22:51)
[2016-10-30] MEDS ORDERED: CEPHALEXIN 500 MG CAPSULE PO ONE (22:51)
[2016-10-30] MEDS ORDERED: LIDOCAINE 1% INJ (10 MG/ML) 10 ML MDV INJ ONE (22:52)
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
[2016-10-30] MEDS ORDERED: LIDOCAINE 1% INJ-PF (10 MG/ML) 30 ML SDV ONE (23:22)
[2016-10-31 02:29] VITALS: BP 124/84
== END 2016-10-31 02:30 | disposition home or self-care (01) ==
LOC: ER 20:38
PROC: 0HQGXZZ Repair Left Hand Skin, External Approach (ICD-10-PCS; principal; 2016-10-30)
DX: S61.211A Laceration without foreign body of left index finger without damage to nail, initial encounter (principal); S01.81XA Laceration without foreign body of other part of head, initial encounter; E86.0 Dehydration; Y09 Assault by unspecified means; F17.210 Nicotine dependence, cigarettes, uncomplicated; F10.120 Alcohol abuse with intoxication, uncomplicated
CPT/HCPCS: 70450; 72125; 90471; 90715; 99284

== ENCOUNTER 2016-11-02 20:46 | Emergency (ER) | payer SELFPAY ==
[2016-11-02] MEDS ORDERED: IPRATROPIUM/ALBUTEROL 0.5-2.5 MG/3 ML AMPUL NEB ONE (21:06)
[2016-11-02] MEDS ORDERED: ALBUTEROL SULFATE 0.083% NEB 2.5 MG/3 ML AMPUL NEB ONE (21:06)
[2016-11-02] MEDS ORDERED: PREDNISONE 20 MG TABLET PO ONE (21:06)
[2016-11-02] MEDS ORDERED: ASPIRIN 81 MG TABLET, CHEWABLE PO ONE (21:08)
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
[2016-11-02] MEDS ORDERED: MAGNESIUM SULFATE/D5W 100 ML IV SCH (22:15)
[2016-11-02 23:00] LABS: ABSOLUTE EOSINOPHILS # (AUTO) 0.2 10^3/uL (0.0-0.6); ABSOLUTE LYMPHOCYTES (AUTO) 2.8 10^3/uL (0.5-4.7); ABSOLUTE MONOCYTES (AUTO) 0.4 10^3/uL (0.1-1.4); ABSOLUTE NEUT (AUTO) 3.8 10^3/uL (1.7-8.2); BASOPHILS % (AUTO) 0.4 % (0-2); EOSINOPHILS % (AUTO) 2.9 % (0-6); HEMATOCRIT 37.7 % (37.9-51.0); HEMOGLOBIN 12.7 g/dL (13.5-17.0); HGB HCT DIFFERENCE 0.4; MEAN CORPUSCULAR HEMOGLOBIN 32.6 pg (27.0-33.4); MEAN CORPUSCULAR HGB CONC 33.8 g/dL (32.0-36.0); MEAN CORPUSCULAR VOLUME 96 fl (80-97); MONOCYTES % (AUTO) 5.9 % (3-13); RED BLOOD COUNT 3.92 10^6/uL (4.35-5.55); RED CELL DISTRIBUTION WIDTH 13.9 % (11.5-14.0); SEGMENTED NEUTROPHILS % (AUTO) 52.8 % (42-78); WHITE BLOOD COUNT 7.2 10^3/uL (4.0-10.5)
[2016-11-02 23:09] LABS: ALANINE AMINOTRANSFERASE 32 U/L (21-72); ALBUMIN 3.5 g/dL (3.5-5.0); ALCOHOL 164 mg/dL (NONE DETECTED); ALKALINE PHOSPHATASE 119 U/L (38-126); ANION GAP 12 (5-19); ASPARTATE AMINO TRANSFERASE 29 U/L (17-59); BILIRUBIN,TOTAL 0.5 mg/dL (0.2-1.3); BLOOD UREA NITROGEN 13 mg/dL (7-20); CALCIUM 8.8 mg/dL (8.4-10.2); CARBON DIOXIDE 24 mmol/L (22-30); CHLORIDE 107 mmol/L (98-107); CREATINE KINASE 154 U/L (55-170); CREATININE RESULT 1.04 mg/dL (0.52-1.25); GLUCOSE 117 mg/dL (75-110); POTASSIUM 3.8 mmol/L (3.6-5.0); SODIUM 142.7 mmol/L (137-145)
[2016-11-02 23:27] LABS: CREATINE KINASE MB 2.08 ng/mL (<4.55)
[2016-11-02 23:28] LABS: TROPONIN I < 0.012 ng/mL
[2016-11-03 00:31] LABS: URINE BARBITURATES SCREEN NEGATIVE; URINE METHADONE SCREEN NEGATIVE; URINE OPIATES LOW NEGATIVE; URINE PHENCYCLIDINE SCREEN NEGATIVE
[2016-11-03] MEDS ORDERED: ALBUTEROL SULFATE HFA (90 MCG/PUFF) 8 GM MDI (1 MDI/ER DISP) IH ONE (05:00)
[2016-11-03 05:33] VITALS: BP 120/75
--- NOTE | 2016-11-03 09:46 | EKG REPORT ---
SEVERITY:- ABNORMAL ECG - SINUS RHYTHM LEFT ANTERIOR FASCICULAR BLOCK POOR R PROGRESSION ANT PRECORDIAL LEADS. : Confirmed by: Handy Blanco MD 03-Nov-2016 09:45:33
== END 2016-11-03 05:16 | disposition home or self-care (01) ==
LOC: ER 20:46
DX: S62.91XA Unspecified fracture of right hand, initial encounter for closed fracture (principal); J40 Bronchitis, not specified as acute or chronic; R06.02 Shortness of breath; M79.641 Pain in right hand; R06.2 Wheezing; F10.120 Alcohol abuse with intoxication, uncomplicated; F17.210 Nicotine dependence, cigarettes, uncomplicated; X58.XXXA Exposure to other specified factors, initial encounter
CPT/HCPCS: 93005; 94640 ×2; 99284; 36415; 82553; 80307 ×2; 82550; 85025; 80053; 84484; 71010; 73130; 93010; J7512; J3490; J7620

== ENCOUNTER 2016-11-05 01:24 | Emergency (ER) | payer SELFPAY ==
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
[2016-11-05 02:17] LABS: ABSOLUTE EOSINOPHILS # (AUTO) 0.1 10^3/uL (0.0-0.6); ABSOLUTE LYMPHOCYTES (AUTO) 3.3 10^3/uL (0.5-4.7); ABSOLUTE MONOCYTES (AUTO) 0.5 10^3/uL (0.1-1.4); ABSOLUTE NEUT (AUTO) 2.4 10^3/uL (1.7-8.2); BASOPHILS % (AUTO) 0.7 % (0-2); EOSINOPHILS % (AUTO) 2.2 % (0-6); HEMATOCRIT 39.5 % (37.9-51.0); HEMOGLOBIN 13.3 g/dL (13.5-17.0); HGB HCT DIFFERENCE 0.4; MEAN CORPUSCULAR HEMOGLOBIN 32.8 pg (27.0-33.4); MEAN CORPUSCULAR HGB CONC 33.8 g/dL (32.0-36.0); MEAN CORPUSCULAR VOLUME 97 fl (80-97); MONOCYTES % (AUTO) 7.3 % (3-13); RED BLOOD COUNT 4.06 10^6/uL (4.35-5.55); RED CELL DISTRIBUTION WIDTH 14.2 % (11.5-14.0); SEGMENTED NEUTROPHILS % (AUTO) 37.8 % (42-78); WHITE BLOOD COUNT 6.4 10^3/uL (4.0-10.5)
[2016-11-05 02:25] LABS: ALANINE AMINOTRANSFERASE 37 U/L (21-72); ALBUMIN 3.9 g/dL (3.5-5.0); ALCOHOL 238 mg/dL (NONE DETECTED); ALKALINE PHOSPHATASE 122 U/L (38-126); ANION GAP 14 (5-19); ASPARTATE AMINO TRANSFERASE 40 U/L (17-59); BILIRUBIN,TOTAL 0.3 mg/dL (0.2-1.3); BLOOD UREA NITROGEN 11 mg/dL (7-20); CARBON DIOXIDE 24 mmol/L (22-30); CHLORIDE 106 mmol/L (98-107); CREATININE RESULT 0.87 mg/dL (0.52-1.25); GLUCOSE 91 mg/dL (75-110); POTASSIUM 3.8 mmol/L (3.6-5.0); SODIUM 143.5 mmol/L (137-145); TOTAL PROTEIN 6.7 g/dL (6.3-8.2)
[2016-11-05 09:35] VITALS: BP 119/70
== END 2016-11-05 09:40 | disposition home or self-care (01) ==
LOC: ER 01:24
DX: F10.120 Alcohol abuse with intoxication, uncomplicated (principal); F17.210 Nicotine dependence, cigarettes, uncomplicated
CPT/HCPCS: 36415; 80053; 80307; 85025; 99284

== ENCOUNTER 2016-11-05 22:04 | Emergency (ER) | payer SELFPAY ==
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
[2016-11-06 01:18] VITALS: BP 114/68
== END 2016-11-06 02:47 | disposition home or self-care (01) ==
LOC: ER 22:04
DX: F10.120 Alcohol abuse with intoxication, uncomplicated (principal); R45.851 Suicidal ideations; F17.210 Nicotine dependence, cigarettes, uncomplicated
CPT/HCPCS: 99284

== ENCOUNTER 2016-11-08 00:12 | Emergency (ER) | payer SELFPAY ==
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
[2016-11-08] MEDS ORDERED: ALBUTEROL SULFATE 0.083% NEB 2.5 MG/3 ML AMPUL NEB ONE (04:19)
[2016-11-08 07:44] VITALS: BP 131/90
== END 2016-11-08 07:44 | disposition home or self-care (01) ==
LOC: ER 00:12
DX: J44.1 Chronic obstructive pulmonary disease with (acute) exacerbation (principal); F10.10 Alcohol abuse, uncomplicated; F17.210 Nicotine dependence, cigarettes, uncomplicated; E03.9 Hypothyroidism, unspecified; Z88.0 Allergy status to penicillin; Z88.2 Allergy status to sulfonamides
CPT/HCPCS: 94640; 99285

== ENCOUNTER 2016-11-23 21:40 | Emergency (ER) | payer MEDICAID ==
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
[2016-11-23] MEDS ORDERED: NORMAL SALINE 1000 ML 1,000 ML IV PRN ×2 (22:24→23:31)
[2016-11-23] MEDS ORDERED: FOLIC ACID INJ 5 MG/1 ML 10 ML VIAL IV ONE (23:31)
[2016-11-23] MEDS ORDERED: THIAMINE HCL 100 MG in NORMAL SALINE 50 ML IV ONE (23:31)
[2016-11-23] MEDS ORDERED: THIAMINE HCL INJ 200 MG/2 ML VIAL ONE (23:53)
[2016-11-24 00:02] LABS: ABSOLUTE EOSINOPHILS # (AUTO) 0.1 10^3/uL (0.0-0.6); ABSOLUTE LYMPHOCYTES (AUTO) 2.6 10^3/uL (0.5-4.7); ABSOLUTE MONOCYTES (AUTO) 0.4 10^3/uL (0.1-1.4); ABSOLUTE NEUT (AUTO) 2.1 10^3/uL (1.7-8.2); BASOPHILS % (AUTO) 0.9 % (0-2); EOSINOPHILS % (AUTO) 2.3 % (0-6); HEMATOCRIT 37.7 % (37.9-51.0); HEMOGLOBIN 12.8 g/dL (13.5-17.0); HGB HCT DIFFERENCE 0.7; LYMPHOCYTES % (AUTO) 49.2 % (13-45); MEAN CORPUSCULAR HEMOGLOBIN 33.3 pg (27.0-33.4); MEAN CORPUSCULAR VOLUME 98 fl (80-97); MONOCYTES % (AUTO) 7.2 % (3-13); RED BLOOD COUNT 3.86 10^6/uL (4.35-5.55); RED CELL DISTRIBUTION WIDTH 13.6 % (11.5-14.0); SEGMENTED NEUTROPHILS % (AUTO) 40.4 % (42-78); WHITE BLOOD COUNT 5.3 10^3/uL (4.0-10.5)
[2016-11-24 00:12] LABS: ALANINE AMINOTRANSFERASE 22 U/L (21-72); ALBUMIN 3.5 g/dL (3.5-5.0); ALCOHOL 188 mg/dL (NONE DETECTED); ALKALINE PHOSPHATASE 85 U/L (38-126); ANION GAP 14 (5-19); ASPARTATE AMINO TRANSFERASE 27 U/L (17-59); BILIRUBIN,DIRECT 0.1 mg/dL (0.0-0.4); BILIRUBIN,TOTAL 0.2 mg/dL (0.2-1.3); BLOOD UREA NITROGEN 15 mg/dL (7-20); CALCIUM 8.9 mg/dL (8.4-10.2); CARBON DIOXIDE 22 mmol/L (22-30); CHLORIDE 110 mmol/L (98-107); CREATININE RESULT 1.05 mg/dL (0.52-1.25); GLUCOSE 89 mg/dL (75-110); SODIUM 145.5 mmol/L (137-145); TOTAL PROTEIN 5.7 g/dL (6.3-8.2)
[2016-11-24 00:14] VITALS: BP 102/63
== END 2016-11-24 00:18 | disposition home or self-care (01) ==
LOC: ER 21:40
DX: F10.120 Alcohol abuse with intoxication, uncomplicated (principal); F17.200 Nicotine dependence, unspecified, uncomplicated
CPT/HCPCS: 99284; 96361; 96374; 36415; 80307; 85025; 80053; J3490; J3411; J7030

== ENCOUNTER 2016-11-24 21:19 | Emergency (ER) | payer MEDICAID ==
[2016-11-24] MEDS ORDERED: NORMAL SALINE 1000 ML 1,000 ML IV ONE (21:38)
[2016-11-24] MEDS ORDERED: IPRATROPIUM/ALBUTEROL 0.5-2.5 MG/3 ML AMPUL NEB ONE (22:04)
[2016-11-24] MEDS ORDERED: METHYLPREDNISOLONE INJ 125 MG/2 ML SDV IV ONE (22:05)
[2016-11-24 22:40] LABS: HEMATOCRIT 40.2 % (37.9-51.0); HEMOGLOBIN 13.5 g/dL (13.5-17.0); HGB HCT DIFFERENCE 0.3; MEAN CORPUSCULAR HEMOGLOBIN 32.7 pg (27.0-33.4); MEAN CORPUSCULAR HGB CONC 33.7 g/dL (32.0-36.0); MEAN CORPUSCULAR VOLUME 97 fl (80-97); RED BLOOD COUNT 4.14 10^6/uL (4.35-5.55); RED CELL DISTRIBUTION WIDTH 13.4 % (11.5-14.0); WHITE BLOOD COUNT 7.3 10^3/uL (4.0-10.5)
[2016-11-24 22:52] LABS: ALANINE AMINOTRANSFERASE 27 U/L (21-72); ALBUMIN 3.8 g/dL (3.5-5.0); ALCOHOL 286 mg/dL (NONE DETECTED); ALKALINE PHOSPHATASE 89 U/L (38-126); ANION GAP 16 (5-19); ASPARTATE AMINO TRANSFERASE 36 U/L (17-59); BILIRUBIN,DIRECT 0.3 mg/dL (0.0-0.4); BILIRUBIN,TOTAL 0.3 mg/dL (0.2-1.3); BLOOD UREA NITROGEN 11 mg/dL (7-20); CARBON DIOXIDE 23 mmol/L (22-30); CHLORIDE 109 mmol/L (98-107); CREATININE RESULT 1.02 mg/dL (0.52-1.25); GLUCOSE 90 mg/dL (75-110); POTASSIUM 4.3 mmol/L (3.6-5.0); SODIUM 147.6 mmol/L (137-145); TOTAL PROTEIN 6.4 g/dL (6.3-8.2)
[2016-11-24 23:03] LABS: BAND NEUTROPHILS % (MANUAL) 1 % (3-5); BASOPHILS % (MANUAL) 2 % (0-2); EOSINOPHILS % (MANUAL) 3 % (0-6); LYMPHOCYTES % (MANUAL) 41 % (13-45); TOTAL CELLS COUNTED 100
[2016-11-24 23:05] LABS: TOXIC GRANULATION 1+
[2016-11-24 23:06] LABS: RBC MORPHOLOGY COMMENT NORMO-CYTIC/CHROMIC
[2016-11-24 23:08] LABS: APPEARANCE,URINE CLEAR; BILIRUBIN,URINE NEGATIVE (NEGATIVE); GLUCOSE, URINE NEGATIVE (NEGATIVE); KETONES,URINE NEGATIVE (NEGATIVE); LEUKOCYTE ESTERASE,URINE NEGATIVE (NEGATIVE); NITRITE,URINE NEGATIVE (NEGATIVE); PROTEIN,URINE NEGATIVE (NEGATIVE); URINE SPECIFIC GRAVITY 1.002; UROBILINOGEN,URINE NEGATIVE mg/dL (<2.0)
[2016-11-24 23:19] LABS: URINE BARBITURATES SCREEN NEGATIVE; URINE METHADONE SCREEN NEGATIVE; URINE OPIATES LOW NEGATIVE; URINE PHENCYCLIDINE SCREEN NEGATIVE
[2016-11-25] MEDS ORDERED: NORMAL SALINE 1000 ML 1,000 ML IV ONE (02:25)
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
[2016-11-25 04:16] VITALS: BP 91/67
--- NOTE | 2016-11-25 16:05 | EKG REPORT ---
SEVERITY:- ABNORMAL ECG - SINUS RHYTHM LEFT ANTERIOR FASCICULAR BLOCK : Confirmed by: Danay Queen 25-Nov-2016 16:04:27
== END 2016-11-25 03:37 | disposition home or self-care (01) ==
LOC: ER 21:19
DX: J44.9 Chronic obstructive pulmonary disease, unspecified (principal); F10.120 Alcohol abuse with intoxication, uncomplicated; R06.02 Shortness of breath; F17.210 Nicotine dependence, cigarettes, uncomplicated; Z88.0 Allergy status to penicillin; Z88.2 Allergy status to sulfonamides
CPT/HCPCS: 93005; 94640; 99284; 96361; 96374; 36415; 80307 ×2; 85025; 80053; 81001; 93010; J2930; J7030; J7620

== ENCOUNTER 2016-11-25 21:28 | Emergency (ER) | payer MEDICAID ==
[2016-11-25 21:41] VITALS: BP 116/82
[2016-11-25] MEDS ORDERED: IPRATROPIUM/ALBUTEROL 0.5-2.5 MG/3 ML AMPUL NEB ONE (21:43)
[2016-11-25] MEDS ORDERED: PREDNISONE 20 MG TABLET PO ONE (21:43)
[2016-11-25] MEDS ORDERED: ASPIRIN 81 MG TABLET, CHEWABLE PO ONE (21:44)
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
--- NOTE | 2016-11-26 00:17 | EKG REPORT ---
SEVERITY:- ABNORMAL ECG - SINUS TACHYCARDIA LEFT ANTERIOR FASCICULAR BLOCK : Confirmed by: Danay Queen 26-Nov-2016 00:16:57
[2016-11-26 01:04] LABS: ABSOLUTE LYMPHOCYTES (AUTO) 1.6 10^3/uL (0.5-4.7); ABSOLUTE MONOCYTES (AUTO) 0.5 10^3/uL (0.1-1.4); ABSOLUTE NEUT (AUTO) 8.4 10^3/uL (1.7-8.2); BASOPHILS % (AUTO) 0.2 % (0-2); HEMATOCRIT 40.5 % (37.9-51.0); HEMOGLOBIN 13.6 g/dL (13.5-17.0); HGB HCT DIFFERENCE 0.3; LYMPHOCYTES % (AUTO) 15.5 % (13-45); MEAN CORPUSCULAR HEMOGLOBIN 32.5 pg (27.0-33.4); MEAN CORPUSCULAR HGB CONC 33.6 g/dL (32.0-36.0); MEAN CORPUSCULAR VOLUME 97 fl (80-97); MONOCYTES % (AUTO) 4.8 % (3-13); RED BLOOD COUNT 4.18 10^6/uL (4.35-5.55); SEGMENTED NEUTROPHILS % (AUTO) 79.5 % (42-78); WHITE BLOOD COUNT 10.6 10^3/uL (4.0-10.5)
[2016-11-26 01:29] LABS: CREATINE KINASE MB 2.05 ng/mL (<4.55)
[2016-11-26 01:34] LABS: TROPONIN I < 0.012 ng/mL
[2016-11-26] MEDS ORDERED: IPRATROPIUM/ALBUTEROL 0.5-2.5 MG/3 ML AMPUL NEB ONE (01:40)
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
== END 2016-11-26 02:39 | disposition home or self-care (01) ==
LOC: ER 21:28
DX: J44.9 Chronic obstructive pulmonary disease, unspecified (principal); F10.120 Alcohol abuse with intoxication, uncomplicated; R05 Cough; R06.02 Shortness of breath; F17.200 Nicotine dependence, unspecified, uncomplicated; Z88.2 Allergy status to sulfonamides; Z88.0 Allergy status to penicillin
CPT/HCPCS: 93005; 94640; 99285; 36415; 82553; 82550; 85025; 84484; 93010; J7512; J7620

== ENCOUNTER 2016-12-03 17:54 | Emergency (ER) | payer SELFPAY ==
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
[2016-12-03] MEDS ORDERED: IBUPROFEN 600 MG TABLET PO ONE (18:49)
[2016-12-03 19:04] VITALS: BP 118/74
== END 2016-12-03 19:00 | disposition home or self-care (01) ==
LOC: ER 17:54
DX: S50.12XA Contusion of left forearm, initial encounter (principal); F10.120 Alcohol abuse with intoxication, uncomplicated; W22.8XXA Striking against or struck by other objects, initial encounter; F17.200 Nicotine dependence, unspecified, uncomplicated
CPT/HCPCS: 99283

== ENCOUNTER 2016-12-06 23:07 | Emergency (ER) | payer MEDICAID, OTHER | END 2016-12-07 | disposition left against medical advice (07) | LOC: ER 23:07 | DX: Z53.21 Procedure and treatment not carried out due to patient leaving prior to being seen by health care provider (principal) ==

== ENCOUNTER 2016-12-07 21:59 | Emergency (ER) | payer SELFPAY ==
[2016-12-07] MEDS ORDERED: IPRATROPIUM/ALBUTEROL 0.5-2.5 MG/3 ML AMPUL NEB ONE (22:17)
[2016-12-07] MEDS ORDERED: PREDNISONE 20 MG TABLET PO ONE (22:17)
[2016-12-07] MEDS: ALBUTEROL SULFATE 0.083% NEB 2.5 MG/3 ML AMPUL NEB SCH ×2 (22:35→22:47)
[2016-12-07] MEDS ORDERED: NALOXONE HCL INJ/PF 0.4 MG/1 ML SDV IV ONE ×2 (22:44→23:16)
[2016-12-07] MEDS ORDERED: NALOXONE HCL INJ 2 MG/2 ML DISP.SYRIN ONE (22:45)
[2016-12-07] MEDS ORDERED: NALOXONE HCL INJ/PF 0.4 MG/1 ML SDV ONE (22:46)
[2016-12-07 23:12] LABS: VENOUS BLOOD BASE EXCESS -4.2 mmol/L; VENOUS BLOOD HCO3 22.6 mmol/L (20-32); VENOUS BLOOD PCO2 47.5 mmHg (35-63); VENOUS BLOOD PH 7.3 (7.30-7.42)
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
[2016-12-07 23:17] LABS: ABSOLUTE BASOPHILS # (AUTO) 0.1 10^3/uL (0.0-0.2); ABSOLUTE EOSINOPHILS # (AUTO) 0.2 10^3/uL (0.0-0.6); ABSOLUTE LYMPHOCYTES (AUTO) 3.9 10^3/uL (0.5-4.7); ABSOLUTE MONOCYTES (AUTO) 0.8 10^3/uL (0.1-1.4); BASOPHILS % (AUTO) 0.9 % (0-2); EOSINOPHILS % (AUTO) 2.1 % (0-6); HEMATOCRIT 42.7 % (37.9-51.0); HEMOGLOBIN 14.1 g/dL (13.5-17.0); HGB HCT DIFFERENCE -0.4; LYMPHOCYTES % (AUTO) 43.4 % (13-45); MEAN CORPUSCULAR HEMOGLOBIN 32.4 pg (27.0-33.4); MEAN CORPUSCULAR VOLUME 98 fl (80-97); MONOCYTES % (AUTO) 9.3 % (3-13); RED BLOOD COUNT 4.35 10^6/uL (4.35-5.55); RED CELL DISTRIBUTION WIDTH 13.7 % (11.5-14.0); SEGMENTED NEUTROPHILS % (AUTO) 44.3 % (42-78); WHITE BLOOD COUNT 9.1 10^3/uL (4.0-10.5)
[2016-12-07 23:19] LABS: ALANINE AMINOTRANSFERASE 29 U/L (21-72); ALBUMIN 4.3 g/dL (3.5-5.0); ALCOHOL 273 mg/dL (NONE DETECTED); ALKALINE PHOSPHATASE 108 U/L (38-126); ANION GAP 13 (5-19); ASPARTATE AMINO TRANSFERASE 37 U/L (17-59); BILIRUBIN,DIRECT 0.2 mg/dL (0.0-0.4); BILIRUBIN,TOTAL 0.4 mg/dL (0.2-1.3); BLOOD UREA NITROGEN 12 mg/dL (7-20); CALCIUM 9.5 mg/dL (8.4-10.2); CARBON DIOXIDE 24 mmol/L (22-30); CHLORIDE 107 mmol/L (98-107); CREATININE RESULT 1.36 mg/dL (0.52-1.25); GLUCOSE 101 mg/dL (75-110); POTASSIUM 4.7 mmol/L (3.6-5.0)
[2016-12-08 00:33] LABS: URINE BARBITURATES SCREEN NEGATIVE; URINE METHADONE SCREEN NEGATIVE; URINE OPIATES LOW NEGATIVE; URINE PHENCYCLIDINE SCREEN NEGATIVE
[2016-12-08] MEDS ORDERED: IPRATROPIUM/ALBUTEROL 0.5-2.5 MG/3 ML AMPUL NEB ONE (04:37)
[2016-12-08] MEDS ORDERED: ALBUTEROL SULFATE HFA (90 MCG/PUFF) 8 GM MDI (1 MDI/ER DISP) IH ONE (05:18)
--- NOTE | 2016-12-08 08:39 | EKG REPORT ---
SEVERITY:- ABNORMAL ECG - SINUS RHYTHM LEFT ANTERIOR FASCICULAR BLOCK : Confirmed by: Danay Queen 08-Dec-2016 08:38:18
[2016-12-08 08:55] VITALS: BP 143/84
== END 2016-12-08 08:57 | disposition home or self-care (01) ==
LOC: ER 21:59
DX: J44.1 Chronic obstructive pulmonary disease with (acute) exacerbation (principal); F10.10 Alcohol abuse, uncomplicated; R41.82 Altered mental status, unspecified; R06.02 Shortness of breath; F17.200 Nicotine dependence, unspecified, uncomplicated
CPT/HCPCS: 93005; 96376; 94640 ×2; 99285; 96374; 36415; 80307 ×2; 82140; 85025; 80053; 82803; 71010; 70450; 93010; J2310; J3490; J7620 ×2

== ENCOUNTER 2016-12-11 22:04 | Emergency (ER) | payer MEDICAID, OTHER ==
[2016-12-11 22:25] VITALS: BP 129/79
[2016-12-11] MEDS ORDERED: IPRATROPIUM/ALBUTEROL 0.5-2.5 MG/3 ML AMPUL NEB ONE (23:53)
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
== END 2016-12-12 06:57 | disposition home or self-care (01) ==
LOC: ER 22:04
DX: S61.219A Laceration without foreign body of unspecified finger without damage to nail, initial encounter (principal); R10.10 Upper abdominal pain, unspecified; M79.641 Pain in right hand; M79.602 Pain in left arm; X58.XXXA Exposure to other specified factors, initial encounter; F17.200 Nicotine dependence, unspecified, uncomplicated
CPT/HCPCS: 94640; 99282; 73130 ×2; J7620

== ENCOUNTER 2016-12-15 23:36 | Emergency (ER) | payer MEDICAID ==
[2016-12-15 23:46] VITALS: BP 128/76
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
--- NOTE | 2016-12-16 08:43 | EKG REPORT ---
SEVERITY:- ABNORMAL ECG - SINUS RHYTHM LAD, CONSIDER LAFB OR INFERIOR INFARCT : Confirmed by: Danay Queen 16-Dec-2016 08:43:09
== END 2016-12-16 03:30 | disposition home or self-care (01) ==
LOC: ER 23:36
DX: F10.120 Alcohol abuse with intoxication, uncomplicated (principal); R07.81 Pleurodynia; S30.1XXA Contusion of abdominal wall, initial encounter; Y04.0XXA Assault by unarmed brawl or fight, initial encounter; F17.200 Nicotine dependence, unspecified, uncomplicated; J44.9 Chronic obstructive pulmonary disease, unspecified
CPT/HCPCS: 93005; 93010; 99284

== ENCOUNTER 2016-12-19 21:10 | Emergency (ER) | payer MEDICAID ==
[2016-12-20] MEDS ORDERED: IPRATROPIUM/ALBUTEROL 0.5-2.5 MG/3 ML AMPUL NEB ONE (01:27)
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
[2016-12-20 05:33] VITALS: BP 112/84
== END 2016-12-20 05:30 | disposition left against medical advice (07) ==
LOC: ER 21:10
DX: J44.9 Chronic obstructive pulmonary disease, unspecified (principal); R06.02 Shortness of breath; F17.200 Nicotine dependence, unspecified, uncomplicated
CPT/HCPCS: 99284

== ENCOUNTER 2016-12-21 22:05 | Emergency (ER) | payer MEDICAID ==
[2016-12-21] MEDS ORDERED: IPRATROPIUM/ALBUTEROL 0.5-2.5 MG/3 ML AMPUL NEB ONE (23:22)
[2016-12-21] MEDS ORDERED: PREDNISONE 20 MG TABLET PO ONE (23:22)
[2016-12-21] MEDS: ALBUTEROL SULFATE 0.083% NEB 2.5 MG/3 ML AMPUL NEB SCH ×2 (23:26→23:58)
[2016-12-22] MEDS ORDERED: ALBUTEROL SULFATE 0.083% NEB 2.5 MG/3 ML AMPUL NEB ONE ×2 (02:33→04:34)
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
[2016-12-22] MEDS ORDERED: ALBUTEROL SULFATE HFA (90 MCG/PUFF) 8 GM MDI (1 MDI/ER DISP) IH ONE (06:05)
[2016-12-22 06:18] VITALS: BP 129/79
== END 2016-12-22 06:28 | disposition home or self-care (01) ==
LOC: ER 22:05
DX: J44.1 Chronic obstructive pulmonary disease with (acute) exacerbation (principal); R06.2 Wheezing; R06.02 Shortness of breath; R05 Cough; F17.200 Nicotine dependence, unspecified, uncomplicated
CPT/HCPCS: 94640 ×2; 99284; J7512; J3490; J7620

== ENCOUNTER 2016-12-22 22:41 | Emergency (ER) | payer MEDICAID ==
[2016-12-22] MEDS ORDERED: IPRATROPIUM/ALBUTEROL 0.5-2.5 MG/3 ML AMPUL NEB ONE (23:31)
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
[2016-12-23 06:04] VITALS: BP 135/88
== END 2016-12-23 06:05 | disposition home or self-care (01) ==
LOC: ER 22:41
DX: F10.120 Alcohol abuse with intoxication, uncomplicated (principal); F17.200 Nicotine dependence, unspecified, uncomplicated
CPT/HCPCS: 94640; 99284; J7620

== ENCOUNTER 2016-12-24 20:54 | Emergency (ER) | payer MEDICAID, OTHER ==
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
[2016-12-25] MEDS ORDERED: IPRATROPIUM/ALBUTEROL 0.5-2.5 MG/3 ML AMPUL NEB ONE ×2 (03:02→04:09)
[2016-12-25] MEDS ORDERED: PREDNISONE 20 MG TABLET PO ONE (03:05)
[2016-12-25] MEDS ORDERED: ALBUTEROL SULFATE HFA (90 MCG/PUFF) 8 GM MDI (1 MDI/ER DISP) IH PRN (04:53)
[2016-12-25 05:15] VITALS: BP 142/76
== END 2016-12-25 05:15 | disposition home or self-care (01) ==
LOC: ER 20:54
DX: J44.1 Chronic obstructive pulmonary disease with (acute) exacerbation (principal); Z91.19 Patient's noncompliance with other medical treatment and regimen; R06.02 Shortness of breath; F17.200 Nicotine dependence, unspecified, uncomplicated; Z88.0 Allergy status to penicillin; Z88.2 Allergy status to sulfonamides
CPT/HCPCS: 94640 ×2; 99284; J7512; J3490; J7620

== ENCOUNTER 2017-01-05 22:18 | Emergency (ER) | payer MEDICAID, OTHER ==
[2017-01-05 23:06] VITALS: BP 111/66
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
== END 2017-01-06 00:33 | disposition home or self-care (01) ==
LOC: ER 22:18
DX: R06.2 Wheezing (principal); F10.10 Alcohol abuse, uncomplicated; R06.00 Dyspnea, unspecified; R06.02 Shortness of breath; F17.200 Nicotine dependence, unspecified, uncomplicated; J44.9 Chronic obstructive pulmonary disease, unspecified; J45.909 Unspecified asthma, uncomplicated; E03.9 Hypothyroidism, unspecified; K21.9 Gastro-esophageal reflux disease without esophagitis; Z59.0 Homelessness; Z88.0 Allergy status to penicillin; Z88.2 Allergy status to sulfonamides
CPT/HCPCS: 99283

== ENCOUNTER 2017-01-17 22:06 | Emergency (ER) | payer MEDICAID, OTHER ==
[2017-01-18] MEDS ORDERED: ALBUTEROL SULFATE 0.083% NEB 2.5 MG/3 ML AMPUL NEB ONE (01:13)
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
[2017-01-18 04:24] VITALS: BP 124/83
== END 2017-01-18 04:26 | disposition home or self-care (01) ==
LOC: ER 22:06
DX: F10.129 Alcohol abuse with intoxication, unspecified (principal); J44.1 Chronic obstructive pulmonary disease with (acute) exacerbation; F17.200 Nicotine dependence, unspecified, uncomplicated; E03.9 Hypothyroidism, unspecified; Z88.0 Allergy status to penicillin; Z88.2 Allergy status to sulfonamides
CPT/HCPCS: 94640; 99284

== ENCOUNTER 2017-01-22 21:54 | Emergency (ER) | payer MEDICAID, OTHER ==
[2017-01-22] MEDS ORDERED: ALBUTEROL SULFATE 0.083% NEB 2.5 MG/3 ML AMPUL NEB ONE (23:21)
[2017-01-22] MEDS ORDERED: IPRATROPIUM/ALBUTEROL 0.5-2.5 MG/3 ML AMPUL NEB ONE (23:21)
[2017-01-22] MEDS ORDERED: PREDNISONE 20 MG TABLET PO ONE (23:22)
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
[2017-01-23] MEDS ORDERED: ACETAMINOPHEN 325 MG TABLET PO ONE (04:08)
[2017-01-23] MEDS ORDERED: ALBUTEROL SULFATE HFA (90 MCG/PUFF) 8 GM MDI (1 MDI/ER DISP) IH ONE (04:08)
[2017-01-23] MEDS ORDERED: ALBUTEROL SULFATE HFA (90 MCG/PUFF) 8 GM MDI (1 MDI/ER DISP) IH PRN (07:01)
[2017-01-23] MEDS ORDERED: NORMAL SALINE 1000 ML 1,000 ML with POTASSIUM CHLORIDE 20 MEQ, MAGNESIUM SULFATE 8 MEQ,... IV ONE ×5 (07:55)
[2017-01-23 09:36] VITALS: BP 153/88
== END 2017-01-23 09:42 | disposition home or self-care (01) ==
LOC: ER 21:54
DX: J44.1 Chronic obstructive pulmonary disease with (acute) exacerbation (principal); F10.129 Alcohol abuse with intoxication, unspecified; R06.2 Wheezing; R06.02 Shortness of breath; F17.200 Nicotine dependence, unspecified, uncomplicated
CPT/HCPCS: 94640 ×2; 99284; J3490 ×2; J7512; J7620

== ENCOUNTER 2017-01-29 23:10 | Emergency (ER) | payer OTHER ==
[2017-01-30] MEDS ORDERED: ALBUTEROL SULFATE 0.083% NEB 2.5 MG/3 ML AMPUL NEB ONE (00:12)
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
[2017-01-30 00:36] VITALS: BP 108/64
== END 2017-01-30 00:39 | disposition home or self-care (01) ==
LOC: ER 23:10
DX: F10.129 Alcohol abuse with intoxication, unspecified (principal); J44.9 Chronic obstructive pulmonary disease, unspecified; F17.200 Nicotine dependence, unspecified, uncomplicated; Z88.0 Allergy status to penicillin; Z88.2 Allergy status to sulfonamides
CPT/HCPCS: 94640; 99284

== ENCOUNTER 2017-02-05 21:38 | Emergency (ER) | payer MEDICAID, OTHER ==
[2017-02-05] MEDS ORDERED: PREDNISONE 20 MG TABLET PO ONE (21:49)
[2017-02-05] MEDS ORDERED: ALBUTEROL SULFATE 0.083% NEB 2.5 MG/3 ML AMPUL NEB ONE (21:49)
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
--- NOTE | 2017-02-05 22:40 | RADIOLOGY REPORT (SQ) ---
EXAM DESCRIPTION: CHEST SINGLE VIEW COMPLETED DATE/TIME: 02/05/2017 9:57 pm REASON FOR STUDY: sob COMPARISON: 12/07/2016 EXAM PARAMETERS: NUMBER OF VIEWS: One view. TECHNIQUE: Single frontal radiographic view of the chest acquired. RADIATION DOSE: NA LIMITATIONS: None. FINDINGS: LUNGS AND PLEURA: No acute opacities, masses or pneumothorax. No pleural effusion. MEDIASTINUM AND HILAR STRUCTURES: Stable. HEART AND VASCULAR STRUCTURES: Heart normal in size. Normal vasculature. BONES: No acute findings. HARDWARE: None in the chest. OTHER: No other significant finding. IMPRESSION: NO ACUTE RADIOGRAPHIC FINDING IN THE CHEST. TECHNICAL DOCUMENTATION: JOB ID: [id number]
[2017-02-05] MEDS ORDERED: ALBUTEROL SULFATE HFA (90 MCG/PUFF) 8 GM MDI (1 MDI/ER DISP) IH PRN (22:57)
[2017-02-06 00:04] VITALS: BP 117/73
== END 2017-02-05 23:58 | disposition home or self-care (01) ==
LOC: ER 21:38
DX: J44.1 Chronic obstructive pulmonary disease with (acute) exacerbation (principal); R06.02 Shortness of breath; F17.200 Nicotine dependence, unspecified, uncomplicated; Z88.0 Allergy status to penicillin; Z88.2 Allergy status to sulfonamides; Z59.0 Homelessness
CPT/HCPCS: 94640; 99285; 71010; J7512; J3490

== ENCOUNTER 2017-02-12 22:59 | Emergency (ER) | payer MEDICAID ==
[2017-02-12] MEDS ORDERED: IPRATROPIUM/ALBUTEROL 0.5-2.5 MG/3 ML AMPUL NEB ONE (23:27)
[2017-02-12] MEDS ORDERED: PREDNISONE 20 MG TABLET PO ONE (23:27)
[2017-02-12] MEDS: ALBUTEROL SULFATE 0.083% NEB 2.5 MG/3 ML AMPUL NEB SCH (23:42)
--- NOTE | 2017-02-13 00:03 | RADIOLOGY REPORT (SQ) ---
EXAM DESCRIPTION: CHEST SINGLE VIEW COMPLETED DATE/TIME: 02/12/2017 11:54 pm REASON FOR STUDY: difficulty breathing COMPARISON: 02/05/2017 EXAM PARAMETERS: NUMBER OF VIEWS: One view. TECHNIQUE: Single frontal radiographic view of the chest acquired. RADIATION DOSE: NA LIMITATIONS: None. FINDINGS: LUNGS AND PLEURA: No opacities, masses or pneumothorax. No pleural effusion. MEDIASTINUM AND HILAR STRUCTURES: No masses. Contour normal. HEART AND VASCULAR STRUCTURES: Heart normal in size. Normal vasculature. BONES: No acute findings. HARDWARE: None in the chest. OTHER: No other significant finding. IMPRESSION: NO ACUTE RADIOGRAPHIC FINDING IN THE CHEST. TECHNICAL DOCUMENTATION: JOB ID: [id number]
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
[2017-02-13] MEDS: ALBUTEROL SULFATE 0.083% NEB 2.5 MG/3 ML AMPUL NEB SCH (00:56)
[2017-02-13 02:05] VITALS: BP 114/60
--- NOTE | 2017-02-13 09:18 | EKG REPORT ---
SEVERITY:- ABNORMAL ECG - SINUS RHYTHM LEFT ANTERIOR FASCICULAR BLOCK : Confirmed by: Danay Queen 13-Feb-2017 09:17:11
== END 2017-02-13 02:01 | disposition home or self-care (01) ==
LOC: ER 22:59
DX: R06.2 Wheezing (principal); F10.10 Alcohol abuse, uncomplicated; R06.02 Shortness of breath; F17.200 Nicotine dependence, unspecified, uncomplicated
CPT/HCPCS: 93005; 94640 ×2; 99284; 71010; 93010; J7512; J7620

== ENCOUNTER 2017-02-13 16:42 | Emergency (ER) | payer MEDICAID, OTHER ==
[2017-02-13 17:01] VITALS: BP 123/83
[2017-02-13] MEDS ORDERED: IPRATROPIUM/ALBUTEROL 0.5-2.5 MG/3 ML AMPUL NEB ONE ×2 (17:02→18:01)
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
== END 2017-02-13 18:20 | disposition home or self-care (01) ==
LOC: ER 16:42
DX: F10.10 Alcohol abuse, uncomplicated (principal); J44.1 Chronic obstructive pulmonary disease with (acute) exacerbation; F20.0 Paranoid schizophrenia; R05 Cough; R55 Syncope and collapse; R06.02 Shortness of breath; F17.210 Nicotine dependence, cigarettes, uncomplicated; Z88.0 Allergy status to penicillin; Z88.2 Allergy status to sulfonamides
CPT/HCPCS: 94640 ×2; 99284; J7620

== ENCOUNTER 2017-02-22 00:07 | Emergency (ER) | payer MEDICAID, OTHER ==
[2017-02-22] MEDS ORDERED: ALBUTEROL SULFATE 0.083% NEB 2.5 MG/3 ML AMPUL NEB ONE (00:23)
[2017-02-22 00:34] VITALS: BP 118/78
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
== END 2017-02-22 02:00 | disposition home or self-care (01) ==
LOC: ER 00:07
DX: J44.1 Chronic obstructive pulmonary disease with (acute) exacerbation (principal); R06.02 Shortness of breath; F41.9 Anxiety disorder, unspecified; F20.9 Schizophrenia, unspecified
CPT/HCPCS: 94640; 99285

== ENCOUNTER 2017-02-24 22:02 | Emergency (ER) | payer MEDICAID ==
[2017-02-24] MEDS ORDERED: IPRATROPIUM/ALBUTEROL 0.5-2.5 MG/3 ML AMPUL NEB ONE (22:19)
[2017-02-24] MEDS ORDERED: METHYLPREDNISOLONE INJ 125 MG/2 ML SDV IV ONE (22:20)
--- NOTE | 2017-02-24 22:44 | RADIOLOGY REPORT (SQ) ---
EXAM DESCRIPTION: CHEST SINGLE VIEW COMPLETED DATE/TIME: 02/24/2017 10:36 pm REASON FOR STUDY: cpod exacerbation COMPARISON: 02/12/2017. EXAM PARAMETERS: NUMBER OF VIEWS: One view. TECHNIQUE: Single frontal radiographic view of the chest acquired. RADIATION DOSE: NA LIMITATIONS: None. FINDINGS: LUNGS AND PLEURA: No opacities, masses or pneumothorax. No pleural effusion. MEDIASTINUM AND HILAR STRUCTURES: No masses. Contour normal. HEART AND VASCULAR STRUCTURES: Heart normal in size. Normal vasculature. BONES: No acute findings. HARDWARE: None in the chest. OTHER: No other significant finding. IMPRESSION: NO ACUTE RADIOGRAPHIC FINDING IN THE CHEST. TECHNICAL DOCUMENTATION: JOB ID: [id number]
[2017-02-24] MEDS: MAGNESIUM SULFATE/D5W 100 ML IV SCH (23:35)
[2017-02-25] MEDS ORDERED: ALBUTEROL SULFATE 0.083% NEB 2.5 MG/3 ML AMPUL NEB ONE (00:18)
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
[2017-02-25] MEDS: MAGNESIUM SULFATE/D5W 100 ML IV SCH (00:25)
[2017-02-25] MEDS ORDERED: ALBUTEROL SULFATE HFA (90 MCG/PUFF) 8 GM MDI (1 MDI/ER DISP) IH PRN (02:51)
== END 2017-02-25 03:23 | disposition home or self-care (01) ==
LOC: ER 22:02
DX: J44.1 Chronic obstructive pulmonary disease with (acute) exacerbation (principal); R06.02 Shortness of breath; F17.200 Nicotine dependence, unspecified, uncomplicated; Z88.0 Allergy status to penicillin; Z88.2 Allergy status to sulfonamides
CPT/HCPCS: 94640 ×2; 99285; 96375; 96365; 71010; J2930; J3475 ×2; J3490; J7620

== ENCOUNTER 2017-02-27 01:03 | Emergency (ER) | payer MEDICAID ==
[2017-02-27] MEDS ORDERED: METHYLPREDNISOLONE INJ 125 MG/2 ML SDV IV ONE (01:12)
[2017-02-27] MEDS ORDERED: IPRATROPIUM/ALBUTEROL 0.5-2.5 MG/3 ML AMPUL NEB ONE (01:12)
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
[2017-02-27] MEDS: MAGNESIUM SULFATE/D5W 100 ML IV SCH ×2 (01:45→02:04)
[2017-02-27 02:03] LABS: ABSOLUTE BASOPHILS # (AUTO) 0.1 10^3/uL (0.0-0.2); ABSOLUTE MONOCYTES (AUTO) 0.6 10^3/uL (0.1-1.4); ABSOLUTE NEUT (AUTO) 3.8 10^3/uL (1.7-8.2); BASOPHILS % (AUTO) 0.8 % (0-2); EOSINOPHILS % (AUTO) 0.2 % (0-6); HEMATOCRIT 42.2 % (37.9-51.0); HEMOGLOBIN 14.1 g/dL (13.5-17.0); HGB HCT DIFFERENCE 0.1; LYMPHOCYTES % (AUTO) 40.4 % (13-45); MEAN CORPUSCULAR HEMOGLOBIN 32.5 pg (27.0-33.4); MEAN CORPUSCULAR HGB CONC 33.3 g/dL (32.0-36.0); MEAN CORPUSCULAR VOLUME 98 fl (80-97); MONOCYTES % (AUTO) 8.4 % (3-13); RED BLOOD COUNT 4.33 10^6/uL (4.35-5.55); RED CELL DISTRIBUTION WIDTH 14.7 % (11.5-14.0); SEGMENTED NEUTROPHILS % (AUTO) 50.2 % (42-78); WHITE BLOOD COUNT 7.5 10^3/uL (4.0-10.5)
--- NOTE | 2017-02-27 02:19 | RADIOLOGY REPORT (SQ) ---
EXAM DESCRIPTION: CHEST SINGLE VIEW COMPLETED DATE/TIME: 02/27/2017 2:02 am REASON FOR STUDY: dyspnea COMPARISON: None. EXAM PARAMETERS: NUMBER OF VIEWS: One view. TECHNIQUE: Single frontal radiographic view of the chest acquired. RADIATION DOSE: NA LIMITATIONS: None. FINDINGS: LUNGS AND PLEURA: No opacities, masses or pneumothorax. No pleural effusion. MEDIASTINUM AND HILAR STRUCTURES: No masses. Contour normal. HEART AND VASCULAR STRUCTURES: Heart normal in size. Normal vasculature. BONES: No acute findings. HARDWARE: Left upper abdominal clips. OTHER: No other significant finding. IMPRESSION: NO ACUTE RADIOGRAPHIC FINDING IN THE CHEST. TECHNICAL DOCUMENTATION: JOB ID: [id number]
[2017-02-27] MEDS ORDERED: ALBUTEROL SULFATE 0.083% NEB 2.5 MG/3 ML AMPUL NEB ONE (02:27)
[2017-02-27 02:37] LABS: VENOUS BLOOD BASE EXCESS -0.2 mmol/L; VENOUS BLOOD HCO3 26.6 mmol/L (20-32); VENOUS BLOOD PCO2 52.2 mmHg (35-63); VENOUS BLOOD PH 7.33 (7.30-7.42)
[2017-02-27 02:54] LABS: ANION GAP 13 (5-19); BLOOD UREA NITROGEN 11 mg/dL (7-20); CALCIUM 8.9 mg/dL (8.4-10.2); CARBON DIOXIDE 22 mmol/L (22-30); CHLORIDE 106 mmol/L (98-107); CREATININE RESULT 1.03 mg/dL (0.52-1.25); GLUCOSE 129 mg/dL (75-110); POTASSIUM 3.6 mmol/L (3.6-5.0); SODIUM 141.4 mmol/L (137-145)
[2017-02-27 02:58] VITALS: BP 102/61
[2017-02-27] MEDS ORDERED: ALBUTEROL SULFATE HFA (90 MCG/PUFF) 8 GM MDI (1 MDI/ER DISP) IH ONE (05:40)
== END 2017-02-27 06:28 | disposition home or self-care (01) ==
LOC: ER 01:03
DX: J44.1 Chronic obstructive pulmonary disease with (acute) exacerbation (principal); F10.229 Alcohol dependence with intoxication, unspecified; F17.200 Nicotine dependence, unspecified, uncomplicated; Z88.0 Allergy status to penicillin; Z88.2 Allergy status to sulfonamides
CPT/HCPCS: 94640 ×2; 99285; 96375; 96365; 36415; 85025; 80048; 82803; 71010; J2930; J3475; J3490; J7620

== ENCOUNTER 2017-03-03 11:51 | Emergency (ER) | payer MEDICAID ==
[2017-03-03 12:02] VITALS: BP 117/74
[2017-03-03] MEDS ORDERED: IPRATROPIUM/ALBUTEROL 0.5-2.5 MG/3 ML AMPUL NEB ONE (13:12)
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
== END 2017-03-03 13:50 | disposition home or self-care (01) ==
LOC: ER 11:51
DX: R06.2 Wheezing (principal); F10.20 Alcohol dependence, uncomplicated; R06.00 Dyspnea, unspecified; R42 Dizziness and giddiness; J44.9 Chronic obstructive pulmonary disease, unspecified; F17.200 Nicotine dependence, unspecified, uncomplicated; E03.9 Hypothyroidism, unspecified; Z88.0 Allergy status to penicillin; Z88.2 Allergy status to sulfonamides
CPT/HCPCS: 94640; 99284; J7620

== ENCOUNTER 2017-03-07 21:38 | Emergency (ER) | payer MEDICAID ==
[2017-03-07] MEDS ORDERED: IPRATROPIUM/ALBUTEROL 0.5-2.5 MG/3 ML AMPUL NEB ONE ×2 (22:02→23:43)
[2017-03-07] MEDS ORDERED: ALBUTEROL SULFATE 0.083% NEB 2.5 MG/3 ML AMPUL NEB ONE (22:03)
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
[2017-03-07] MEDS ORDERED: PREDNISONE 20 MG TABLET PO ONE (23:42)
[2017-03-07] MEDS ORDERED: ALBUTEROL SULFATE 0.083% NEB 2.5 MG/3 ML AMPUL NEB SCH (23:45)
[2017-03-08 00:05] VITALS: BP 110/70
== END 2017-03-08 00:13 | disposition home or self-care (01) ==
LOC: ER 21:38
DX: J44.1 Chronic obstructive pulmonary disease with (acute) exacerbation (principal); F10.20 Alcohol dependence, uncomplicated; F17.200 Nicotine dependence, unspecified, uncomplicated; K21.9 Gastro-esophageal reflux disease without esophagitis; Z88.0 Allergy status to penicillin; Z88.2 Allergy status to sulfonamides
CPT/HCPCS: 94640 ×2; 99284; J7512; J7620

== ENCOUNTER 2017-03-08 08:19 | Emergency (ER) | payer MEDICAID ==
[2017-03-08 08:25] VITALS: BP 140/91
[2017-03-08] MEDS ORDERED: IPRATROPIUM/ALBUTEROL 0.5-2.5 MG/3 ML AMPUL NEB ONE (08:54)
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
== END 2017-03-08 09:52 | disposition home or self-care (01) ==
LOC: ER 08:19
DX: J44.1 Chronic obstructive pulmonary disease with (acute) exacerbation (principal); R06.02 Shortness of breath; R05 Cough; F17.210 Nicotine dependence, cigarettes, uncomplicated; Z71.6 Tobacco abuse counseling; Z88.0 Allergy status to penicillin; Z88.2 Allergy status to sulfonamides
CPT/HCPCS: 94640; 99284; J7620

== ENCOUNTER 2017-03-09 08:15 | Emergency (ER) | payer MEDICAID ==
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
[2017-03-09] MEDS ORDERED: IPRATROPIUM/ALBUTEROL 0.5-2.5 MG/3 ML AMPUL NEB ONE (08:44)
[2017-03-09] MEDS ORDERED: PREDNISONE 20 MG TABLET PO ONE (08:44)
[2017-03-09 10:27] VITALS: BP 117/61
== END 2017-03-09 09:53 | disposition home or self-care (01) ==
LOC: ER 08:15
DX: J44.1 Chronic obstructive pulmonary disease with (acute) exacerbation (principal); F10.229 Alcohol dependence with intoxication, unspecified; R06.02 Shortness of breath; R05 Cough; F17.200 Nicotine dependence, unspecified, uncomplicated; Z88.0 Allergy status to penicillin; Z88.2 Allergy status to sulfonamides
CPT/HCPCS: 94640; 99285; J7620

== ENCOUNTER 2017-03-09 23:19 | Emergency (ER) | payer MEDICAID ==
[2017-03-09] MEDS ORDERED: IPRATROPIUM/ALBUTEROL 0.5-2.5 MG/3 ML AMPUL NEB ONE (23:22)
[2017-03-09] MEDS ORDERED: METHYLPREDNISOLONE INJ 125 MG/2 ML SDV IV ONE (23:23)
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
[2017-03-10] MEDS: MAGNESIUM SULFATE/D5W 100 ML IV SCH ×2 (00:15→01:39)
[2017-03-10] MEDS ORDERED: ALBUTEROL SULFATE HFA (90 MCG/PUFF) 8 GM MDI (1 MDI/ER DISP) IH ONE (05:50)
[2017-03-10] MEDS ORDERED: PREDNISONE 20 MG TABLET PO ONE (05:50)
[2017-03-10 09:16] VITALS: BP 133/99
== END 2017-03-10 09:14 | disposition home or self-care (01) ==
LOC: ER 23:19
DX: J44.1 Chronic obstructive pulmonary disease with (acute) exacerbation (principal); F10.129 Alcohol abuse with intoxication, unspecified; R06.02 Shortness of breath; F17.210 Nicotine dependence, cigarettes, uncomplicated; Z88.0 Allergy status to penicillin; Z88.2 Allergy status to sulfonamides
CPT/HCPCS: 94640; 99285; J7512; J3490; J7620

== ENCOUNTER 2017-03-21 22:23 | Emergency (ER) | payer MEDICAID ==
[2017-03-21] MEDS ORDERED: IPRATROPIUM/ALBUTEROL 0.5-2.5 MG/3 ML AMPUL NEB ONE (22:31)
[2017-03-21] MEDS ORDERED: PREDNISONE 20 MG TABLET PO ONE (22:31)
[2017-03-21] MEDS ORDERED: ALBUTEROL SULFATE 0.083% NEB 2.5 MG/3 ML AMPUL NEB SCH (22:47)
--- NOTE | 2017-03-21 22:59 | RADIOLOGY REPORT (SQ) ---
EXAM DESCRIPTION: CHEST SINGLE VIEW COMPLETED DATE/TIME: 03/21/2017 10:46 pm REASON FOR STUDY: difficulty breathing COMPARISON: 02/27/2017. EXAM PARAMETERS: NUMBER OF VIEWS: One view. TECHNIQUE: Single frontal radiographic view of the chest acquired. RADIATION DOSE: NA LIMITATIONS: None. FINDINGS: LUNGS AND PLEURA: No opacities, masses or pneumothorax. No pleural effusion. MEDIASTINUM AND HILAR STRUCTURES: No masses. Contour normal. HEART AND VASCULAR STRUCTURES: Heart normal in size. Normal vasculature. BONES: No acute findings. HARDWARE: None in the chest. OTHER: No other significant finding. IMPRESSION: NO ACUTE RADIOGRAPHIC FINDING IN THE CHEST. TECHNICAL DOCUMENTATION: JOB ID: [id number]
[2017-03-22] MEDS ORDERED: IPRATROPIUM/ALBUTEROL 0.5-2.5 MG/3 ML AMPUL NEB ONE (00:39)
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
[2017-03-22 02:35] VITALS: BP 109/80
--- NOTE | 2017-03-23 13:50 | EKG REPORT ---
SEVERITY:- ABNORMAL ECG - SINUS RHYTHM LEFT ANTERIOR FASCICULAR BLOCK : Confirmed by: Neyda Ag MD 23-Mar-2017 13:49:47
== END 2017-03-22 02:36 | disposition home or self-care (01) ==
LOC: ER 22:23
DX: J44.1 Chronic obstructive pulmonary disease with (acute) exacerbation (principal); F10.920 Alcohol use, unspecified with intoxication, uncomplicated; J45.909 Unspecified asthma, uncomplicated; E03.9 Hypothyroidism, unspecified; Z88.2 Allergy status to sulfonamides; Z88.0 Allergy status to penicillin
CPT/HCPCS: 93005; 94640 ×2; 99285; 71010; 93010; J7512; J7620 ×2

== ENCOUNTER 2017-03-22 19:23 | Emergency (ER) | payer MEDICAID ==
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
[2017-03-22] MEDS ORDERED: NORMAL SALINE 1000 ML 1,000 ML IV ONE (20:57)
--- NOTE | 2017-03-22 21:03 | RADIOLOGY REPORT (SQ) ---
EXAM DESCRIPTION: CHEST SINGLE VIEW COMPLETED DATE/TIME: 03/22/2017 8:39 pm REASON FOR STUDY: sob COMPARISON: 03/21/2017 EXAM PARAMETERS: NUMBER OF VIEWS: One view. TECHNIQUE: Single frontal radiographic view of the chest acquired. RADIATION DOSE: NA LIMITATIONS: None. FINDINGS: LUNGS AND PLEURA: No opacities, masses or pneumothorax. No pleural effusion. MEDIASTINUM AND HILAR STRUCTURES: No masses. Contour normal. HEART AND VASCULAR STRUCTURES: Heart normal in size. Normal vasculature. BONES: No acute findings. HARDWARE: None in the chest. OTHER: No other significant finding. IMPRESSION: NO ACUTE RADIOGRAPHIC FINDING IN THE CHEST. TECHNICAL DOCUMENTATION: JOB ID: [id number]
[2017-03-22 21:20] LABS: ABSOLUTE EOSINOPHILS # (AUTO) 0.1 10^3/uL (0.0-0.6); ABSOLUTE LYMPHOCYTES (AUTO) 2.4 10^3/uL (0.5-4.7); ABSOLUTE MONOCYTES (AUTO) 0.7 10^3/uL (0.1-1.4); ABSOLUTE NEUT (AUTO) 2.2 10^3/uL (1.7-8.2); BASOPHILS % (AUTO) 0.8 % (0-2); EOSINOPHILS % (AUTO) 1.6 % (0-6); HEMATOCRIT 38.7 % (37.9-51.0); HEMOGLOBIN 12.9 g/dL (13.5-17.0); LYMPHOCYTES % (AUTO) 44.1 % (13-45); MEAN CORPUSCULAR HEMOGLOBIN 33.1 pg (27.0-33.4); MEAN CORPUSCULAR HGB CONC 33.4 g/dL (32.0-36.0); MEAN CORPUSCULAR VOLUME 99 fl (80-97); MONOCYTES % (AUTO) 12.5 % (3-13); RED BLOOD COUNT 3.91 10^6/uL (4.35-5.55); RED CELL DISTRIBUTION WIDTH 14.5 % (11.5-14.0); WHITE BLOOD COUNT 5.4 10^3/uL (4.0-10.5)
[2017-03-22 21:24] LABS: ALANINE AMINOTRANSFERASE 208 U/L (21-72); ALBUMIN 3.9 g/dL (3.5-5.0); ALCOHOL 255 mg/dL (NONE DETECTED); ALKALINE PHOSPHATASE 160 U/L (38-126); ANION GAP 13 (5-19); ASPARTATE AMINO TRANSFERASE 283 U/L (17-59); BILIRUBIN,DIRECT 0.4 mg/dL (0.0-0.4); BILIRUBIN,TOTAL 0.6 mg/dL (0.2-1.3); BLOOD UREA NITROGEN 8 mg/dL (7-20); CALCIUM 8.9 mg/dL (8.4-10.2); CARBON DIOXIDE 23 mmol/L (22-30); CHLORIDE 106 mmol/L (98-107); CREATININE RESULT 0.97 mg/dL (0.52-1.25); GLUCOSE 99 mg/dL (75-110); LIPASE 213.8 U/L (23-300); POTASSIUM 4.1 mmol/L (3.6-5.0); SODIUM 142.2 mmol/L (137-145); TOTAL PROTEIN 6.8 g/dL (6.3-8.2)
--- NOTE | 2017-03-22 21:43 | RADIOLOGY REPORT (SQ) ---
EXAM DESCRIPTION: CT HEAD WITHOUT COMPLETED DATE/TIME: 03/22/2017 9:33 pm REASON FOR STUDY: ams intoxicated COMPARISON: 12/07/2016 10/30/2016 10/28/2016 and 10/04/2016 TECHNIQUE: Axial images acquired through the brain without intravenous contrast. Images reviewed wi th bone, brain and subdural windows. Images stored on PACS. All CT scanners at this facility use dose modulation, iterative reconstruction, and/or weight based d osing when appropriate to reduce radiation dose to as low as reasonably achievable (ALARA). [facility]: Dose Right [facility]: CareDose [facility]: Dose Right [facility]: Teradose 4D [facility]: CheckPoint HR RADIATION DOSE: mGy. LIMITATIONS: None. FINDINGS: VENTRICLES: Normal size and contour. CEREBRUM: No masses. No hemorrhage. No midline shift. Normal adams/white matter differentiation. N o evidence for acute infarction. CEREBELLUM: No masses. No hemorrhage. No alteration of density. No evidence for acute infarction. EXTRAAXIAL SPACES: No fluid collections. No masses. ORBITS AND GLOBE: No intra- or extraconal masses. Normal contour of globe without masses. CALVARIUM: No fracture. PARANASAL SINUSES: No fluid or mucosal thickening. SOFT TISSUES: No mass or hematoma. OTHER: No other significant finding. IMPRESSION: NORMAL BRAIN CT WITHOUT CONTRAST. TECHNICAL DOCUMENTATION: JOB ID: [id number] Quality ID # [id number]: Final reports with documentation of one or more dose reduction techniques (e.g., Au tomated exposure control, adjustment of the mA and/or kV according to patient size, use of iterative reconstruction technique) 2010 [employer]- All Rights Reserved
[2017-03-22] MEDS ORDERED: ALBUTEROL SULFATE 0.083% NEB 2.5 MG/3 ML AMPUL NEB ONE (22:18)
[2017-03-22 22:24] LABS: APPEARANCE,URINE CLEAR; BILIRUBIN,URINE NEGATIVE (NEGATIVE); GLUCOSE, URINE NEGATIVE (NEGATIVE); KETONES,URINE NEGATIVE (NEGATIVE); LEUKOCYTE ESTERASE,URINE NEGATIVE (NEGATIVE); NITRITE,URINE NEGATIVE (NEGATIVE); PROTEIN,URINE NEGATIVE (NEGATIVE); URINE SPECIFIC GRAVITY 1.002; UROBILINOGEN,URINE NEGATIVE mg/dL (<2.0)
[2017-03-22 22:27] LABS: URINE BARBITURATES SCREEN NEGATIVE; URINE METHADONE SCREEN NEGATIVE; URINE OPIATES LOW NEGATIVE; URINE PHENCYCLIDINE SCREEN NEGATIVE
--- NOTE | 2017-03-23 06:07 | ER Document Report ---
Doctor's Note Notes: 03/23/17 06:06 Patient awake and alert, able to ambulate with a steady gait, clinically sober, lungs are clear to auscultation, no acute distress, patient is requesting an albuterol inhaler, was provided with a prescription for same, advised to discontinue smoking and excessive alcohol consumption Discharge - Discharge Clinical Impression: etoh intoxication, copd Condition: Stable Disposition: HOME, SELF-CARE Additional Instructions: alcohol intoxication Abstaining from alcohol is the only effective long-term treatment. If you start drinking again, you will not be able to control yourself after the first drink. Treatment programs are available. In addition, many alcoholics benefit from Alcoholics Anonymous or other support groups available through your counselor or cheondoism golf sales associate. AL-ANON and ALA-TEEN are support groups for friends and family members of an alcoholic. Go to the emergency room if you develop persistent vomiting, severe abdominal pain, fever, shortness of breath, hallucinations, uncontrollable tremors, or seizures. Chronic Obstructive Lung Disease You have chronic obstructive lung disease (COPD). The symptoms come from emphysema (damage to small airways, with trapping of air in large sacks in the lung) and chronic bronchitis (repeated infection and damage to larger airways). The cause is almost always cigarette smoking, although dust exposure, asthma, and infections contribute. You should avoid fumes, dust, and smoke (especially tobacco smoke). Your condition will flare from time to time. There is no cure, but the symptoms can be treated. Bronchodilators (asthma medicine) are often helpful. Antibiotics help when infection is present. When shortness of breath is severe, we may prescribe cortisone medication. If medicine doesn't help enough, we can arrange for you to have an oxygen tank at home. Notify your doctor at once if sputum becomes thick, foul, or bloody, if you develop a fever or chest pain, or if your shortness of breath worsens. Prescriptions: Albuterol Sulfate [Proair HFA Inhalation Aerosol 8.5 gm MDI] 1 puff IH Q4 PRN # 1 mdi PRN Reason: Scribe Attestation: 03/22/17 22:17 I personally performed the services described in the documentation reviewed the documentation recorded by my scribe in my presence and it accurately and completely records my words and actions
[2017-03-23 06:11] VITALS: BP 133/99
--- NOTE | 2017-03-23 13:50 | EKG REPORT ---
SEVERITY:- ABNORMAL ECG - SINUS RHYTHM LEFT ANTERIOR FASCICULAR BLOCK : Confirmed by: Neyda Ag MD 23-Mar-2017 13:49:43
== END 2017-03-23 06:00 | disposition home or self-care (01) ==
LOC: ER 19:23
DX: J43.9 Emphysema, unspecified (principal); F10.229 Alcohol dependence with intoxication, unspecified; Z88.2 Allergy status to sulfonamides; Z88.0 Allergy status to penicillin; F10.129 Alcohol abuse with intoxication, unspecified; F17.200 Nicotine dependence, unspecified, uncomplicated; J45.909 Unspecified asthma, uncomplicated; Z90.49 Acquired absence of other specified parts of digestive tract; F20.0 Paranoid schizophrenia; F32.9 Major depressive disorder, single episode, unspecified; F41.9 Anxiety disorder, unspecified
CPT/HCPCS: 93005; 94640; 99285; 96360; 36415; 80307 ×2; 83690; 85025; 80053; 81001; 84484; 71010; 70450; 93010; J7030

== ENCOUNTER 2017-03-24 00:50 | Emergency (ER) | payer OTHER, MEDICAID ==
[2017-03-24 01:00] VITALS: BP 126/73
[2017-03-24] MEDS ORDERED: ALBUTEROL SULFATE HFA (90 MCG/PUFF) 8 GM MDI (1 MDI/ER DISP) IH PRN (01:14)
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
== END 2017-03-24 01:24 | disposition home or self-care (01) ==
LOC: ER 00:50
DX: F10.920 Alcohol use, unspecified with intoxication, uncomplicated (principal); J44.9 Chronic obstructive pulmonary disease, unspecified; E03.9 Hypothyroidism, unspecified; K21.9 Gastro-esophageal reflux disease without esophagitis; M19.90 Unspecified osteoarthritis, unspecified site; F32.9 Major depressive disorder, single episode, unspecified; F20.0 Paranoid schizophrenia; F17.210 Nicotine dependence, cigarettes, uncomplicated; F14.10 Cocaine abuse, uncomplicated; Z59.0 Homelessness; Z87.11 Personal history of peptic ulcer disease; Z88.0 Allergy status to penicillin; Z88.2 Allergy status to sulfonamides
CPT/HCPCS: 99284

== ENCOUNTER 2017-03-29 20:52 | Emergency (ER) | payer MEDICAID, OTHER ==
[2017-03-29] MEDS ORDERED: IPRATROPIUM/ALBUTEROL 0.5-2.5 MG/3 ML AMPUL NEB ONE (21:30)
[2017-03-29] MEDS ORDERED: PREDNISONE 20 MG TABLET PO ONE (21:30)
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
[2017-03-29] MEDS: ALBUTEROL SULFATE 0.083% NEB 2.5 MG/3 ML AMPUL NEB SCH (22:05)
[2017-03-30 04:41] VITALS: BP 120/84
== END 2017-03-30 04:38 | disposition home or self-care (01) ==
LOC: ER 20:52
DX: J44.1 Chronic obstructive pulmonary disease with (acute) exacerbation (principal); R06.2 Wheezing; R06.02 Shortness of breath; F17.200 Nicotine dependence, unspecified, uncomplicated; F17.210 Nicotine dependence, cigarettes, uncomplicated
CPT/HCPCS: 99285; 94640; J7512; J7620

== ENCOUNTER 2017-04-02 09:58 | Day surgery (SDC) | payer MEDICAID ==
[~2017-04-02 09:58] MED LIST: BESIFLOXACIN HCL 0.6% OPH SUSP 5 ML BOTTLE OD PRN; CHONDR SU A NA/HYALUR INTRAOC KIT (SURGICARE) ONE; CYCLOPENTOLATE 0.2%/PHENYLEPHRINE 1% OPH SOLN 2 ML OD PRN; EPINEPHRINE INJ/PF 1 MG/1 ML AMPULE ONE; KETOROLAC TROMETHAMINE 0.45% 4 DROP/0.4 ML DROPERETTE OD PRN; LIDOCAINE 1% INJ-PF (10 MG/ML) 30 ML SDV ONE; TETRACAINE HCL 0.5% OPH SOLN 0.6 ML DROPERETTE OD PRN; TOBRAMYCIN SULFATE/DEXAMETH OPH OINTMENT 3.5 GM ONE; TROPICAMIDE 1% OPH SOLN 3 ML OD PRN
[2017-04-02] MEDS ORDERED: TOBRAMYCIN SULFATE/DEXAMETH OPH OINTMENT 3.5 GM ONE (10:22)
[2017-04-02] MEDS ORDERED: CHONDR SU A NA/HYALUR INTRAOC KIT (SURGICARE) ONE (10:22)
[2017-04-02] MEDS ORDERED: LIDOCAINE 1% INJ-PF (10 MG/ML) 30 ML SDV ONE (10:22)
[2017-04-02] MEDS ORDERED: EPINEPHRINE INJ/PF 1 MG/1 ML AMPULE ONE (10:22)
[2017-04-02] MEDS: BESIFLOXACIN HCL 0.6% OPH SUSP 5 ML BOTTLE OD PRN ×3 (10:23→11:13)
[2017-04-02] MEDS: TROPICAMIDE 1% OPH SOLN 3 ML OD PRN ×3 (10:23→10:43)
[2017-04-02] MEDS: CYCLOPENTOLATE 0.2%/PHENYLEPHRINE 1% OPH SOLN 2 ML OD PRN ×3 (10:23→10:43)
[2017-04-02] MEDS: LIDOCAINE 3.5% OPH GEL/PF 1 ML/TUBE OD PRN ×3 (10:24→10:52)
[2017-04-02] MEDS ORDERED: PHENYLEPHRINE/KETOROLAC 1%-0.3% 4 ML VIAL ONE (10:36)
[2017-04-02] MEDS ORDERED: ALBUTEROL SULFATE 0.083% NEB 2.5 MG/3 ML AMPUL NEB ONE (10:38)
[2017-04-02] MEDS ORDERED: MIDAZOLAM 2 MG/2 ML INJ ONE (10:41)
[2017-04-02] MEDS ORDERED: FENTANYL CITRATE INJ/PF 100 MCG/2 ML AMPUL ONE (10:42)
== END 2017-04-02 13:30 | disposition home or self-care (01) ==
LOC: SC 09:58
PROVIDERS: ATTEND Ophthalmology
PROC: 08RJ3JZ Replacement of Right Lens with Synthetic Substitute, Percutaneous Approach (ICD-10-PCS; principal; 2017-04-02 11:15)
DX: H25.11 Age-related nuclear cataract, right eye (principal); J44.9 Chronic obstructive pulmonary disease, unspecified; E03.9 Hypothyroidism, unspecified; F17.210 Nicotine dependence, cigarettes, uncomplicated; K21.9 Gastro-esophageal reflux disease without esophagitis; K70.30 Alcoholic cirrhosis of liver without ascites; Z86.73 Personal history of transient ischemic attack (TIA), and cerebral infarction without residual deficits; Z79.51 Long term (current) use of inhaled steroids; Z79.899 Other long term (current) drug therapy; Z88.2 Allergy status to sulfonamides; Z88.0 Allergy status to penicillin
CPT/HCPCS: 66984; V2630; J2250; J3490 ×4; J3010; A9270; C9447; 142; J0171

== ENCOUNTER 2017-04-04 21:16 | Emergency (ER) | payer MEDICAID ==
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
[2017-04-04] MEDS ORDERED: IPRATROPIUM/ALBUTEROL 0.5-2.5 MG/3 ML AMPUL NEB ONE (21:39)
[2017-04-05 04:03] VITALS: BP 111/78
== END 2017-04-05 03:05 | disposition home or self-care (01) ==
LOC: ER 21:16
DX: J44.1 Chronic obstructive pulmonary disease with (acute) exacerbation (principal); F10.229 Alcohol dependence with intoxication, unspecified; I10 Essential (primary) hypertension; F17.200 Nicotine dependence, unspecified, uncomplicated; Z88.0 Allergy status to penicillin; Z88.2 Allergy status to sulfonamides
CPT/HCPCS: 94640; 99285; J7620

== ENCOUNTER 2017-04-05 20:41 | Emergency (ER) | payer MEDICAID ==
[2017-04-05 20:54] VITALS: BP 135/77
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
== END 2017-04-06 00:08 | disposition home or self-care (01) ==
LOC: ER 20:41
DX: J44.1 Chronic obstructive pulmonary disease with (acute) exacerbation (principal); R06.02 Shortness of breath; R06.2 Wheezing; Z79.899 Other long term (current) drug therapy; F17.200 Nicotine dependence, unspecified, uncomplicated; F10.920 Alcohol use, unspecified with intoxication, uncomplicated
CPT/HCPCS: 70450; 72125; 99284

== ENCOUNTER 2017-04-06 21:02 | Emergency (ER) | payer MEDICAID ==
[2017-04-06 21:44] VITALS: BP 131/78
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
== END 2017-04-07 00:11 | disposition home or self-care (01) ==
LOC: ER 21:02
DX: S00.12XD Contusion of left eyelid and periocular area, subsequent encounter (principal); Y04.2XXD Assault by strike against or bumped into by another person, subsequent encounter; H57.12 Ocular pain, left eye; J44.9 Chronic obstructive pulmonary disease, unspecified; F10.120 Alcohol abuse with intoxication, uncomplicated; Z88.0 Allergy status to penicillin; Z88.2 Allergy status to sulfonamides
CPT/HCPCS: 99283

== ENCOUNTER 2017-04-11 22:58 | Emergency (ER) | payer MEDICAID ==
[2017-04-11 23:22] VITALS: BP 112/67
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
== END 2017-04-12 02:34 | disposition home or self-care (01) ==
LOC: ER 22:58
DX: R06.02 Shortness of breath (principal); F17.200 Nicotine dependence, unspecified, uncomplicated; F10.920 Alcohol use, unspecified with intoxication, uncomplicated
CPT/HCPCS: 99284

== ENCOUNTER 2017-04-12 21:52 | Emergency (ER) | payer MEDICAID ==
[2017-04-12 23:32] VITALS: BP 126/84
[2017-04-12] MEDS ORDERED: PREDNISONE 20 MG TABLET PO ONE (23:34)
[2017-04-12] MEDS ORDERED: IPRATROPIUM/ALBUTEROL 0.5-2.5 MG/3 ML AMPUL NEB ONE (23:34)
[2017-04-12] MEDS: ALBUTEROL SULFATE 0.083% NEB 2.5 MG/3 ML AMPUL NEB SCH (23:38)
[2017-04-13] MEDS: ALBUTEROL SULFATE 0.083% NEB 2.5 MG/3 ML AMPUL NEB SCH
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
== END 2017-04-13 01:15 | disposition home or self-care (01) ==
LOC: ER 21:52
DX: J44.1 Chronic obstructive pulmonary disease with (acute) exacerbation (principal); F10.20 Alcohol dependence, uncomplicated; F17.200 Nicotine dependence, unspecified, uncomplicated; Z88.0 Allergy status to penicillin; Z88.2 Allergy status to sulfonamides
CPT/HCPCS: 94640 ×2; 99284; J7620

== ENCOUNTER 2017-04-15 01:30 | Emergency (ER) | payer MEDICAID ==
[2017-04-15] MEDS ORDERED: IPRATROPIUM/ALBUTEROL 0.5-2.5 MG/3 ML AMPUL NEB ONE (01:43)
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
[2017-04-15 02:38] VITALS: BP 115/80
== END 2017-04-15 02:36 | disposition home or self-care (01) ==
LOC: ER 01:30
DX: R06.2 Wheezing (principal); R06.02 Shortness of breath; F10.20 Alcohol dependence, uncomplicated; J44.9 Chronic obstructive pulmonary disease, unspecified; E03.9 Hypothyroidism, unspecified; Z88.0 Allergy status to penicillin; Z88.2 Allergy status to sulfonamides
CPT/HCPCS: 94640; 99284; J7620

== ENCOUNTER 2017-04-16 10:45 | Day surgery (SDC) | payer MEDICAID ==
[~2017-04-16 10:45] MED LIST changes: -BESIFLOXACIN HCL 0.6% OPH SUSP 5 ML BOTTLE OD PRN; -CHONDR SU A NA/HYALUR INTRAOC KIT (SURGICARE) ONE; -CYCLOPENTOLATE 0.2%/PHENYLEPHRINE 1% OPH SOLN 2 ML OD PRN; -EPINEPHRINE INJ/PF 1 MG/1 ML AMPULE ONE; -KETOROLAC TROMETHAMINE 0.45% 4 DROP/0.4 ML DROPERETTE OD PRN; +KETOROLAC TROMETHAMINE 0.45% 4 DROP/0.4 ML DROPERETTE OS PRN; -LIDOCAINE 1% INJ-PF (10 MG/ML) 30 ML SDV ONE; -TETRACAINE HCL 0.5% OPH SOLN 0.6 ML DROPERETTE OD PRN; -TOBRAMYCIN SULFATE/DEXAMETH OPH OINTMENT 3.5 GM ONE; -TROPICAMIDE 1% OPH SOLN 3 ML OD PRN
[2017-04-16] MEDS: CYCLOPENTOLATE 0.2%/PHENYLEPHRINE 1% OPH SOLN 2 ML OS PRN ×3 (11:30→11:52)
[2017-04-16] MEDS: TROPICAMIDE 1% OPH SOLN 3 ML OS PRN ×3 (11:30→11:52)
[2017-04-16] MEDS: BESIFLOXACIN HCL 0.6% OPH SUSP 5 ML BOTTLE OS PRN ×3 (11:31→12:22)
[2017-04-16] MEDS: LIDOCAINE 3.5% OPH GEL/PF 1 ML/TUBE OS PRN ×3 (11:32→12:02)
[2017-04-16] MEDS ORDERED: ALBUTEROL SULFATE 0.083% NEB 2.5 MG/3 ML AMPUL NEB ONE (11:38)
[2017-04-16] MEDS ORDERED: LIDOCAINE 1% INJ-PF (10 MG/ML) 30 ML SDV ONE (11:46)
[2017-04-16] MEDS ORDERED: CHONDR SU A NA/HYALUR INTRAOC KIT (SURGICARE) ONE (11:46)
[2017-04-16] MEDS ORDERED: EPINEPHRINE INJ/PF 1 MG/1 ML AMPULE ONE (11:46)
[2017-04-16] MEDS ORDERED: TOBRAMYCIN SULFATE/DEXAMETH OPH OINTMENT 3.5 GM ONE ×2 (11:46→11:48)
[2017-04-16] MEDS ORDERED: PHENYLEPHRINE/KETOROLAC 1%-0.3% 4 ML VIAL ONE (11:48)
[2017-04-16] MEDS ORDERED: MIDAZOLAM 2 MG/2 ML INJ ONE (11:57)
[2017-04-16] MEDS ORDERED: FENTANYL CITRATE INJ/PF 100 MCG/2 ML AMPUL ONE ×2 (11:57)
[2017-04-16] MEDS ORDERED: ACETAMINOPHEN 325 MG TABLET ONE (13:04)
== END 2017-04-16 13:11 | disposition home or self-care (01) ==
LOC: SC 10:45
PROVIDERS: ATTEND Ophthalmology
PROC: 08RK3JZ Replacement of Left Lens with Synthetic Substitute, Percutaneous Approach (ICD-10-PCS; principal; 2017-04-16 12:00)
DX: H25.12 Age-related nuclear cataract, left eye (principal); Z98.41 Cataract extraction status, right eye; Z96.1 Presence of intraocular lens; J44.9 Chronic obstructive pulmonary disease, unspecified; K21.9 Gastro-esophageal reflux disease without esophagitis; E03.9 Hypothyroidism, unspecified; Z79.51 Long term (current) use of inhaled steroids; Z79.899 Other long term (current) drug therapy; Z88.0 Allergy status to penicillin; Z88.2 Allergy status to sulfonamides; Z86.73 Personal history of transient ischemic attack (TIA), and cerebral infarction without residual deficits
CPT/HCPCS: 66984; V2630; J3490 ×5; J2250; J3010; A9270; C9447; 142; J0171

== ENCOUNTER 2017-06-06 14:28 | Emergency (ER) | payer MEDICAID ==
[2017-06-06] MEDS ORDERED: NORMAL SALINE 1000 ML 1,000 ML IV ONE (14:45)
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
[2017-06-06 15:56] LABS: ABSOLUTE BASOPHILS # (AUTO) 0.1 10^3/uL (0.0-0.2); ABSOLUTE EOSINOPHILS # (AUTO) 0.2 10^3/uL (0.0-0.6); ABSOLUTE LYMPHOCYTES (AUTO) 2.5 10^3/uL (0.5-4.7); ABSOLUTE MONOCYTES (AUTO) 1.2 10^3/uL (0.1-1.4); ABSOLUTE NEUT (AUTO) 11.1 10^3/uL (1.7-8.2); BASOPHILS % (AUTO) 0.6 % (0-2); HEMATOCRIT 44.3 % (37.9-51.0); HEMOGLOBIN 15.2 g/dL (13.5-17.0); HGB HCT DIFFERENCE 1.3; LYMPHOCYTES % (AUTO) 16.4 % (13-45); MEAN CORPUSCULAR HGB CONC 34.3 g/dL (32.0-36.0); MEAN CORPUSCULAR VOLUME 96 fl (80-97); RED CELL DISTRIBUTION WIDTH 13.7 % (11.5-14.0)
[2017-06-06 16:06] LABS: APPEARANCE,URINE CLEAR; BILIRUBIN,URINE NEGATIVE (NEGATIVE); GLUCOSE, URINE NEGATIVE (NEGATIVE); KETONES,URINE NEGATIVE (NEGATIVE); LEUKOCYTE ESTERASE,URINE NEGATIVE (NEGATIVE); NITRITE,URINE NEGATIVE (NEGATIVE); PROTEIN,URINE NEGATIVE (NEGATIVE); URINE SPECIFIC GRAVITY 1.002; UROBILINOGEN,URINE NEGATIVE mg/dL (<2.0)
[2017-06-06 16:09] LABS: PROTHROMBIN TIME 13.2 SEC (11.4-15.4)
[2017-06-06 16:16] LABS: ALANINE AMINOTRANSFERASE 36 U/L (21-72); ALBUMIN 4.3 g/dL (3.5-5.0); ALCOHOL 253 mg/dL (NONE DETECTED); ALKALINE PHOSPHATASE 162 U/L (38-126); ANION GAP 18 (5-19); ASPARTATE AMINO TRANSFERASE 39 U/L (17-59); BILIRUBIN,DIRECT 0.4 mg/dL (0.0-0.4); BILIRUBIN,TOTAL 0.6 mg/dL (0.2-1.3); BLOOD UREA NITROGEN 13 mg/dL (7-20); CALCIUM 9.8 mg/dL (8.4-10.2); CARBON DIOXIDE 25 mmol/L (22-30); CHLORIDE 101 mmol/L (98-107); CREATININE RESULT 0.96 mg/dL (0.52-1.25); GLUCOSE 122 mg/dL (75-110); POTASSIUM 4.2 mmol/L (3.6-5.0); SODIUM 143.6 mmol/L (137-145); TOTAL PROTEIN 7.2 g/dL (6.3-8.2)
--- NOTE | 2017-06-06 17:08 | RADIOLOGY REPORT (SQ) ---
EXAM DESCRIPTION: CT CHEST WITH COMPLETED DATE/TIME: 06/06/2017 4:44 pm REASON FOR STUDY: R rib fx's, RUQ abd pain, guarding COMPARISON: 05/28/2013 TECHNIQUE: CT scan of the chest performed using helical scanning technique with dynamic intravenous contrast injection. Images reviewed with lung, soft tissue and bone windows. Reconstructed coronal and sagittal MPR images reviewed. All images stored on PACS. All CT scanners at this facility use dose modulation, iterative reconstruction, and/or weight based d osing when appropriate to reduce radiation dose to as low as reasonably achievable (ALARA). [facility]: Dose Right [facility]: CareDose [facility]: Dose Right [facility]: Teradose 4D [facility]: Etubics CONTRAST TYPE AND DOSE: 100 cc Isovue 370- low osmolar. RENAL FUNCTION: Not available. RADIATION DOSE: Total exam DLP 1125 mGy cm LIMITATIONS: None. FINDINGS: LUNGS AND PLEURA: There are 3 small areas of ground-glass opacification in the left upper lobe. HILAR AND MEDIASTINAL STRUCTURES: No identified masses or abnormal nodes. HEART AND VASCULAR STRUCTURES: No aneurysm or dissection. No central pulmonary emboli. No pericardi al effusion. HARDWARE: None in the chest. UPPER ABDOMEN: See separate report of the CT of the abdomen. THYROID AND OTHER SOFT TISSUES: No masses. No adenopathy. BONES: No significant finding. OTHER: No other significant finding. IMPRESSION: Possible limited multicentric infiltrates in the left upper lobe. No other significant finding. TECHNICAL DOCUMENTATION: JOB ID: [id number] Quality ID # [id number]: Final reports with documentation of one or more dose reduction techniques (e.g., Au tomated exposure control, adjustment of the mA and/or kV according to patient size, use of iterative reconstruction technique) 2010 [employer]- All Rights Reserved
--- NOTE | 2017-06-06 17:10 | RADIOLOGY REPORT (SQ) ---
EXAM DESCRIPTION: CT ABD/PELVIS WITH IV ORAL COMPLETED DATE/TIME: 06/06/2017 4:44 pm REASON FOR STUDY: R rib fx's, RUQ abd pain, guarding COMPARISON: None. TECHNIQUE: CT scan of the abdomen and pelvis performed using helical scanning technique with dynamic intravenous contrast injection. No oral contrast. Images reviewed with lung, soft tissue, and bone windows. Reconstructed coronal and sagittal MPR images reviewed. Delayed images for evaluation of the urinary system also acquired. All images stored on PACS. All CT scanners at this facility use dose modulation, iterative reconstruction, and/or weight based d osing when appropriate to reduce radiation dose to as low as reasonably achievable (ALARA). [facility]: Dose Right [facility]: CareDose [facility]: Dose Right [facility]: Teradose 4D [facility]: Aspyra CONTRAST TYPE AND DOSE: contrast/concentration: Isovue 370.00 mg/ml; Total Contrast Delivered: 100.0 ml; Total Saline Delivered: 70.0 ml RENAL FUNCTION: Not available. RADIATION DOSE: Up-to-date CT equipment and radiation dose reduction techniques were employed. CTDIv ol: 8.0 - 11.2 mGy. DLP: 1125 mGy-cm.. LIMITATIONS: Motion. FINDINGS: LOWER CHEST: See separate report of the CT of the chest. LIVER: Normal size. No masses. No dilated ducts. SPLEEN: Normal size. No focal lesions. PANCREAS: No masses. No significant calcifications. No adjacent inflammation or peripancreatic fluid collections. Pancreatic duct not dilated. GALLBLADDER: No identified stones by CT criteria. No inflammatory changes to suggest cholecystitis. ADRENAL GLANDS: No significant masses or asymmetry. RIGHT KIDNEY AND URETER: No solid masses. No significant calcifications. No hydronephrosis or hyd roureter. LEFT KIDNEY AND URETER: No solid masses. No significant calcifications. No hydronephrosis or hydr oureter. AORTA AND VESSELS: No aneurysm. No dissection. Renal arteries, SMA, celiac without stenosis. RETROPERITONEUM: No retroperitoneal adenopathy, hemorrhage or masses. BOWEL AND PERITONEAL CAVITY: Clips anterior peritoneum. Mild gastric distention. Scattered divertic jefferson. No ascites or free air. APPENDIX: Not visualized. PELVIS: No mass. No free fluid. Normal bladder. ABDOMINAL WALL: No masses. No hernias. BONES: No acute findings. OTHER: No other significant finding. IMPRESSION: Mild gastric distention. No evidence of solid organ injury. TECHNICAL DOCUMENTATION: JOB ID: [id number] Quality ID # [id number]: Final reports with documentation of one or more dose reduction techniques (e.g., Au tomated exposure control, adjustment of the mA and/or kV according to patient size, use of iterative reconstruction technique) 2010 [employer]- All Rights Reserved
[2017-06-06] MEDS ORDERED: AZITHROMYCIN 250 MG TABLET PO ONE (17:21)
[2017-06-06 17:40] VITALS: BP 128/83
== END 2017-06-06 17:50 | disposition home or self-care (01) ==
LOC: ER 14:28
DX: S20.211A Contusion of right front wall of thorax, initial encounter (principal); J18.1 Lobar pneumonia, unspecified organism; R07.81 Pleurodynia; F10.920 Alcohol use, unspecified with intoxication, uncomplicated; Y09 Assault by unspecified means
CPT/HCPCS: 99284; 96360; 96361; 36415; 80307; 83735; 85025; 85610; 80053; 81001; 71260; 74177; Q0144; J7030

== ENCOUNTER 2017-06-08 22:40 | Emergency (ER) | payer MEDICAID ==
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
[2017-06-09 05:56] VITALS: BP 137/81
== END 2017-06-09 02:26 | disposition home or self-care (01) ==
LOC: ER 22:40
DX: F10.920 Alcohol use, unspecified with intoxication, uncomplicated (principal); F17.200 Nicotine dependence, unspecified, uncomplicated; J44.9 Chronic obstructive pulmonary disease, unspecified; Z88.0 Allergy status to penicillin; Z88.2 Allergy status to sulfonamides
CPT/HCPCS: 99285

== ENCOUNTER 2017-06-12 01:22 | Emergency (ER) | payer MEDICAID ==
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
--- NOTE | 2017-06-12 02:46 | RADIOLOGY REPORT (SQ) ---
EXAM DESCRIPTION: RIBS RIGHT W/PA CHEST COMPLETED DATE/TIME: 06/12/2017 2:15 am REASON FOR STUDY: right rib pain s/p fall COMPARISON: None. TECHNIQUE: Frontal view of the chest and additional views of the right ribs acquired. NUMBER OF VIEWS: Three view. LIMITATIONS: None. FINDINGS: FRONTAL CXR: No pneumothorax. No pleural effusion. No atelectasis or infiltrates. RIBS: 3 mm displaced complete fracture of the right posterior 9th rib relatively new compared with pr ior exam, 12/16/2016. Deformity of the left lateral 10th rib consistent with prior injury. OTHER: Left upper abdominal clips. IMPRESSION: Right posterior 9th rib fracture. And no pneumothorax. COMMENT: SITE OF TRAUMA/COMPLAINT MARKED/STAMP COMPLETED: YES. TECHNICAL DOCUMENTATION: JOB ID: [id number] [employer] All Rights Reserved
[2017-06-12 06:03] VITALS: BP 113/86
== END 2017-06-12 04:50 | disposition home or self-care (01) ==
LOC: ER 01:22
DX: S22.31XA Fracture of one rib, right side, initial encounter for closed fracture (principal); W19.XXXA Unspecified fall, initial encounter; F10.229 Alcohol dependence with intoxication, unspecified; F17.200 Nicotine dependence, unspecified, uncomplicated; J44.9 Chronic obstructive pulmonary disease, unspecified; Z88.0 Allergy status to penicillin; Z88.2 Allergy status to sulfonamides
CPT/HCPCS: 99284

== ENCOUNTER 2017-06-18 00:14 | Emergency (ER) | payer MEDICAID, OTHER ==
[2017-06-18] MEDS ORDERED: LIDOCAINE 5% (700 MG) TRANSDERMAL ADH..PATCH TP ONE ×2 (00:28→06:11)
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
[2017-06-18 06:22] VITALS: BP 117/64
== END 2017-06-18 06:21 | disposition home or self-care (01) ==
LOC: ER 00:14
DX: R07.81 Pleurodynia (principal); R06.2 Wheezing; F10.920 Alcohol use, unspecified with intoxication, uncomplicated; J44.9 Chronic obstructive pulmonary disease, unspecified; S22.39XD Fracture of one rib, unspecified side, subsequent encounter for fracture with routine healing; W19.XXXD Unspecified fall, subsequent encounter
CPT/HCPCS: 99284; J3490

== ENCOUNTER 2017-06-25 21:47 | Emergency (ER) | payer MEDICAID ==
[2017-06-25 23:50] VITALS: BP 115/76
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
[2017-06-26] MEDS ORDERED: IPRATROPIUM/ALBUTEROL 0.5-2.5 MG/3 ML AMPUL NEB ONE (04:38)
[2017-06-26] MEDS ORDERED: LIDOCAINE 5% (700 MG) TRANSDERMAL ADH..PATCH TP ONE (04:42)
== END 2017-06-26 05:16 | disposition home or self-care (01) ==
LOC: ER 21:47
DX: S20.211A Contusion of right front wall of thorax, initial encounter (principal); R06.2 Wheezing; W50.0XXA Accidental hit or strike by another person, initial encounter; F17.200 Nicotine dependence, unspecified, uncomplicated; I10 Essential (primary) hypertension; J44.9 Chronic obstructive pulmonary disease, unspecified; E03.9 Hypothyroidism, unspecified; Z88.0 Allergy status to penicillin; Z88.2 Allergy status to sulfonamides
CPT/HCPCS: 94640; 99285; 71101; J3490; J7620

== ENCOUNTER 2017-10-01 13:07 | Emergency (ER) | payer MEDICAID ==
[2017-10-01 13:15] VITALS: BP 134/70
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
[2017-10-01 14:58] LABS: APPEARANCE,URINE CLEAR; BILIRUBIN,URINE NEGATIVE (NEGATIVE); COLOR,URINE STRAW; GLUCOSE, URINE NEGATIVE (NEGATIVE); KETONES,URINE NEGATIVE (NEGATIVE); LEUKOCYTE ESTERASE,URINE NEGATIVE (NEGATIVE); NITRITE,URINE NEGATIVE (NEGATIVE); PROTEIN,URINE NEGATIVE (NEGATIVE); URINE SPECIFIC GRAVITY 1.003; UROBILINOGEN,URINE NEGATIVE mg/dL (<2.0)
[2017-10-01 15:03] LABS: ABSOLUTE EOSINOPHILS # (AUTO) 0.1 10^3/uL (0.0-0.6); ABSOLUTE LYMPHOCYTES (AUTO) 1.7 10^3/uL (0.5-4.7); ABSOLUTE MONOCYTES (AUTO) 0.6 10^3/uL (0.1-1.4); ABSOLUTE NEUT (AUTO) 3.9 10^3/uL (1.7-8.2); BASOPHILS % (AUTO) 0.7 % (0-2); EOSINOPHILS % (AUTO) 2.2 % (0-6); HEMATOCRIT 45.8 % (37.9-51.0); HEMOGLOBIN 15.8 g/dL (13.5-17.0); LYMPHOCYTES % (AUTO) 26.7 % (13-45); MEAN CORPUSCULAR HEMOGLOBIN 33.6 pg (27.0-33.4); MEAN CORPUSCULAR HGB CONC 34.4 g/dL (32.0-36.0); MEAN CORPUSCULAR VOLUME 98 fl (80-97); MONOCYTES % (AUTO) 9.5 % (3-13); PLATELET COUNT 188 10^3/uL (150-450); RED BLOOD COUNT 4.69 10^6/uL (4.35-5.55); RED CELL DISTRIBUTION WIDTH 13.5 % (11.5-14.0); SEGMENTED NEUTROPHILS % (AUTO) 60.9 % (42-78); TOTAL CELLS COUNTED % (AUTO) 100 %; WHITE BLOOD COUNT 6.3 10^3/uL (4.0-10.5)
[2017-10-01 15:25] LABS: ALANINE AMINOTRANSFERASE 62 U/L (21-72); ALBUMIN 4.8 g/dL (3.5-5.0); ALCOHOL 28 mg/dL (NONE DETECTED); ALKALINE PHOSPHATASE 154 U/L (38-126); ANION GAP 13 (5-19); ASPARTATE AMINO TRANSFERASE 132 U/L (17-59); BILIRUBIN,DIRECT 0.8 mg/dL (0.0-0.4); BILIRUBIN,TOTAL 1.2 mg/dL (0.2-1.3); BLOOD UREA NITROGEN 10 mg/dL (7-20); CALCIUM 10.5 mg/dL (8.4-10.2); CARBON DIOXIDE 23 mmol/L (22-30); CHLORIDE 104 mmol/L (98-107); GLUCOSE 88 mg/dL (75-110); LIPASE 115.5 U/L (23-300); POTASSIUM 4.2 mmol/L (3.6-5.0); SODIUM 139.7 mmol/L (137-145); TOTAL PROTEIN 7.8 g/dL (6.3-8.2)
--- NOTE | 2017-10-01 16:16 | RADIOLOGY REPORT (SQ) ---
EXAM DESCRIPTION: CT ABD/PELVIS WITH IV ONLY COMPLETED DATE/TIME: 10/01/2017 3:46 pm REASON FOR STUDY: abd pain COMPARISON: CT abdomen pelvis 06/06/2017 TECHNIQUE: CT scan of the abdomen and pelvis performed using helical scanning technique with dynamic intravenous contrast injection. No oral contrast. Images reviewed with lung, soft tissue, and bone windows. Reconstructed coronal and sagittal MPR imag es reviewed. Delayed images for evaluation of the urinary system also acquired. All images stored on PACS. All CT scanners at this facility use dose modulation, iterative reconstruction, and/or weight based d osing when appropriate to reduce radiation dose to as low as reasonably achievable (ALARA). [facility]: Dose Right [facility]: CareDose [facility]: Dose Right [facility]: Teradose 4D [facility]: ICVRx CONTRAST TYPE AND DOSE: contrast/concentration: Isovue 370.00 mg/ml; Total Contrast Delivered: 81.0 ml; Total Saline Delivered: 43.0 ml RENAL FUNCTION: Creatinine 0.95 RADIATION DOSE: CT Rad equipment meets quality standard of care and radiation dose reduction techniq ues were employed. CTDIvol: 6.0 - 8.2 mGy. DLP: 699 mGy-cm.. LIMITATIONS: None. FINDINGS: LOWER CHEST: Old right posterior 9th rib fracture. Lung bases are clear. Small hiatal he rnia. LIVER: Diffuse low attenuation from fatty infiltration with relative sparing at the gallbladder fossa . No discrete masses. Normal size. Normal enhancement of the portal vein and hepatic veins SPLEEN: Normal size. No focal lesions. PANCREAS: No masses. No significant calcifications. No adjacent inflammation or peripancreatic fluid collections. Pancreatic duct not dilated. GALLBLADDER: No identified stones by CT criteria. No inflammatory changes to suggest cholecystitis. ADRENAL GLANDS: No significant masses or asymmetry. RIGHT KIDNEY AND URETER: No solid masses. No significant calcifications. No hydronephrosis or hyd roureter. LEFT KIDNEY AND URETER: No solid masses. 1 cm cyst left mid pole kidney. No significant calcificat ions. No hydronephrosis or hydroureter. AORTA AND VESSELS: No aneurysm. No dissection. Renal arteries, SMA, celiac without stenosis. RETROPERITONEUM: No retroperitoneal adenopathy, hemorrhage or masses. BOWEL AND PERITONEAL CAVITY: No masses or inflammatory changes. No free fluid or peritoneal masses. No oral contrast APPENDIX: Surgically absent PELVIS: No mass. No free fluid. Normal bladder. ABDOMINAL WALL: Intact midline incision. Surgical clips along the central aspect of the gastric body . BONES: Advanced degenerative disc changes at L2-3 OTHER: No other significant finding. IMPRESSION: Fatty liver. Post appendectomy. Old surgical clips along the ventral aspect of the gastric body with intact midline abdominal wall in cision TECHNICAL DOCUMENTATION: JOB ID: [id number] Quality ID # [id number]: Final reports with documentation of one or more dose reduction techniques (e.g., Au tomated exposure control, adjustment of the mA and/or kV according to patient size, use of iterative reconstruction technique) 2010 [employer]- All Rights Reserved
[2017-10-01 16:28] LABS: CHLAM PCR NOT DETECTED (NOT DETECT); GON PCR NOT DETECTED (NOT DETECT)
[2017-10-01] MEDS ORDERED: IPRATROPIUM/ALBUTEROL 0.5-2.5 MG/3 ML AMPUL NEB ONE (16:59)
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
[2017-10-01] MEDS ORDERED: ALBUTEROL SULFATE HFA (90 MCG/PUFF) 8 GM MDI (1 MDI/ER DISP) IH SCH (18:00)
== END 2017-10-01 17:37 | disposition home or self-care (01) ==
LOC: ER 13:07
DX: R10.31 Right lower quadrant pain (principal); R10.11 Right upper quadrant pain; R06.2 Wheezing; M25.512 Pain in left shoulder; F17.200 Nicotine dependence, unspecified, uncomplicated
CPT/HCPCS: 94640; 99284; 36415; 80307; 83690; 85025; 80053; 81001; 87491; 87591; 74177; J3490; J7620

== ENCOUNTER 2017-10-10 | Emergency (ER) | payer MEDICAID ==
[2017-10-10] MEDS ORDERED: IPRATROPIUM/ALBUTEROL 0.5-2.5 MG/3 ML AMPUL NEB ONE (01:19)
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
[2017-10-10] MEDS: ALBUTEROL SULFATE 0.083% NEB 2.5 MG/3 ML AMPUL NEB SCH ×2 (01:27→03:05)
--- NOTE | 2017-10-10 03:14 | RADIOLOGY REPORT (SQ) ---
EXAM DESCRIPTION: WRIST RIGHT 3 VIEWS CLINICAL HISTORY: pain and swelling COMPARISON: None. FINDINGS: 3 views of the right wrist. No acute fracture or dislocation. Normal osseous mineralization. Radius, capitate, and lunate have normal alignment. IMPRESSION: No acute fracture or dislocation.
--- NOTE | 2017-10-10 03:17 | RADIOLOGY REPORT (SQ) ---
EXAM DESCRIPTION: HAND RIGHT 3 VIEWS CLINICAL HISTORY: pain and swelling COMPARISON: None. FINDINGS: 3 views of the right hand. Acute minimally displaced fracture involving the head of the second metacarpal. Possible fracture involving the head of the third metacarpal. Healed right fifth metacarpal fracture. Normal osseous mineralization. No other fractures identified. IMPRESSION: 1. Acute minimally displaced fracture involving the head of the right second metacarpal. 2. Possible acute nondisplaced fracture involving the head of the right third metacarpal.
--- NOTE | 2017-10-10 03:19 | RADIOLOGY REPORT (SQ) ---
EXAM DESCRIPTION: CHEST PA/LAT CLINICAL HISTORY: chest tightness wheezing COMPARISON: 03/22/2017 FINDINGS: Frontal and lateral views of the chest. The cardiomediastinal silhouette has normal size and contour. No consolidation, pneumothorax, or pleural effusion. No acute osseous abnormality identified. Remote right ninth rib fracture identified. Postoperative changes in the upper abdomen. IMPRESSION: 1. No acute pulmonary process identified.
[2017-10-10 03:26] LABS: ABSOLUTE EOSINOPHILS # (AUTO) 0.3 10^3/uL (0.0-0.6); ABSOLUTE LYMPHOCYTES (AUTO) 2.2 10^3/uL (0.5-4.7); ABSOLUTE MONOCYTES (AUTO) 0.5 10^3/uL (0.1-1.4); ABSOLUTE NEUT (AUTO) 2.5 10^3/uL (1.7-8.2); BASOPHILS % (AUTO) 0.7 % (0-2); EOSINOPHILS % (AUTO) 4.7 % (0-6); HEMATOCRIT 42.6 % (37.9-51.0); HEMOGLOBIN 14.4 g/dL (13.5-17.0); LYMPHOCYTES % (AUTO) 40.4 % (13-45); MEAN CORPUSCULAR HEMOGLOBIN 33.5 pg (27.0-33.4); MEAN CORPUSCULAR HGB CONC 33.7 g/dL (32.0-36.0); MEAN CORPUSCULAR VOLUME 99 fl (80-97); MONOCYTES % (AUTO) 9.9 % (3-13); PLATELET COUNT 214 10^3/uL (150-450); RED BLOOD COUNT 4.29 10^6/uL (4.35-5.55); RED CELL DISTRIBUTION WIDTH 13.6 % (11.5-14.0); SEGMENTED NEUTROPHILS % (AUTO) 44.3 % (42-78); TOTAL CELLS COUNTED % (AUTO) 100 %; WHITE BLOOD COUNT 5.6 10^3/uL (4.0-10.5)
[2017-10-10 03:50] LABS: ALANINE AMINOTRANSFERASE 97 U/L (21-72); ALBUMIN 4.4 g/dL (3.5-5.0); ALKALINE PHOSPHATASE 125 U/L (38-126); ANION GAP 15 (5-19); ASPARTATE AMINO TRANSFERASE 109 U/L (17-59); BILIRUBIN,DIRECT 0.6 mg/dL (0.0-0.4); BILIRUBIN,TOTAL 0.7 mg/dL (0.2-1.3); BLOOD UREA NITROGEN 7 mg/dL (7-20); CALCIUM 9.8 mg/dL (8.4-10.2); CARBON DIOXIDE 23 mmol/L (22-30); CHLORIDE 107 mmol/L (98-107); CREATINE KINASE 332 U/L (55-170); GLUCOSE 94 mg/dL (75-110); POTASSIUM 3.7 mmol/L (3.6-5.0); SODIUM 145.4 mmol/L (137-145); TOTAL PROTEIN 7.5 g/dL (6.3-8.2)
[2017-10-10 04:08] LABS: CREATINE KINASE MB 2.13 ng/mL (<4.55); TROPONIN I < 0.012 ng/mL
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
[2017-10-10 06:50] VITALS: BP 122/68
--- NOTE | 2017-10-10 10:04 | EKG REPORT ---
SEVERITY:- ABNORMAL ECG - SINUS RHYTHM LEFT ANTERIOR FASCICULAR BLOCK : Confirmed by: Danay Queen 10-Oct-2017 10:03:51
== END 2017-10-10 06:50 | disposition home or self-care (01) ==
LOC: ER
DX: R07.89 Other chest pain (principal); S62.390A Other fracture of second metacarpal bone, right hand, initial encounter for closed fracture; S00.83XA Contusion of other part of head, initial encounter; V29.9XXA Motorcycle rider (driver) (passenger) injured in unspecified traffic accident, initial encounter; Z53.20 Procedure and treatment not carried out because of patient's decision for unspecified reasons; F10.20 Alcohol dependence, uncomplicated; Z88.0 Allergy status to penicillin; Z88.2 Allergy status to sulfonamides; F17.200 Nicotine dependence, unspecified, uncomplicated; J44.9 Chronic obstructive pulmonary disease, unspecified
CPT/HCPCS: 93005; 94640 ×2; 99284; 36415; 82553; 82550; 85025; 80053; 84484; 71046; 73130; 73110; 93010; J7620

== ENCOUNTER 2017-10-23 21:25 | Emergency (ER) | payer MEDICAID ==
[2017-10-23 21:45] VITALS: BP 112/98
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
== END 2017-10-23 23:30 | disposition home or self-care (01) ==
LOC: ER 21:25
DX: F10.920 Alcohol use, unspecified with intoxication, uncomplicated (principal); F17.200 Nicotine dependence, unspecified, uncomplicated; Z88.0 Allergy status to penicillin; Z88.2 Allergy status to sulfonamides
CPT/HCPCS: 99284

== ENCOUNTER 2017-10-29 15:52 | Emergency (ER) | payer MEDICAID, OTHER ==
[2017-10-29 16:15] VITALS: BP 119/73
[2017-10-29] MEDS ORDERED: TETRACAINE HCL 0.5% OPH SOLN 2 ML OS ONE (16:18)
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
[2017-10-29] MEDS ORDERED: KETOROLAC TROMETHAMINE 0.45% 4 DROP/0.4 ML DROPERETTE OS ONE (16:37)
[2017-10-29] MEDS ORDERED: CIPROFLOXACIN HCL 0.3% OPH SOLN 2.5 ML OS ONE (16:37)
[2017-10-29] MEDS ORDERED: IPRATROPIUM/ALBUTEROL 0.5-2.5 MG/3 ML AMPUL NEB ONE (16:42)
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
[2017-10-29] MEDS ORDERED: ALBUTEROL SULFATE HFA (90 MCG/PUFF) 8 GM MDI (1 MDI/ER DISP) IH PRN (18:27)
== END 2017-10-29 19:01 | disposition home or self-care (01) ==
LOC: ER 15:52
DX: S62.390A Other fracture of second metacarpal bone, right hand, initial encounter for closed fracture (principal); S62.392A Other fracture of third metacarpal bone, right hand, initial encounter for closed fracture; S05.02XA Injury of conjunctiva and corneal abrasion without foreign body, left eye, initial encounter; H11.32 Conjunctival hemorrhage, left eye; M79.89 Other specified soft tissue disorders; H57.12 Ocular pain, left eye; Y09 Assault by unspecified means; F17.200 Nicotine dependence, unspecified, uncomplicated; F10.20 Alcohol dependence, uncomplicated
CPT/HCPCS: 94640; 99284; 73130; 70486; J3490 ×4; J7620

== ENCOUNTER 2017-11-18 15:38 | Emergency (ER) | payer MEDICAID ==
[2017-11-18] MEDS ORDERED: NORMAL SALINE 1000 ML 1,000 ML IV ONE (16:28)
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
[2017-11-18 17:14] LABS: ABSOLUTE EOSINOPHILS # (AUTO) 0.1 10^3/uL (0.0-0.6); ABSOLUTE LYMPHOCYTES (AUTO) 1.5 10^3/uL (0.5-4.7); ABSOLUTE MONOCYTES (AUTO) 0.6 10^3/uL (0.1-1.4); ABSOLUTE NEUT (AUTO) 2.9 10^3/uL (1.7-8.2); BASOPHILS % (AUTO) 0.6 % (0-2); EOSINOPHILS % (AUTO) 2.1 % (0-6); HEMATOCRIT 44.2 % (37.9-51.0); MEAN CORPUSCULAR HEMOGLOBIN 33.7 pg (27.0-33.4); MEAN CORPUSCULAR HGB CONC 33.9 g/dL (32.0-36.0); MEAN CORPUSCULAR VOLUME 99 fl (80-97); PLATELET COUNT 210 10^3/uL (150-450); RED BLOOD COUNT 4.46 10^6/uL (4.35-5.55); RED CELL DISTRIBUTION WIDTH 13.4 % (11.5-14.0); SEGMENTED NEUTROPHILS % (AUTO) 56.3 % (42-78); TOTAL CELLS COUNTED % (AUTO) 100 %; WHITE BLOOD COUNT 5.1 10^3/uL (4.0-10.5)
[2017-11-18 17:30] LABS: ALANINE AMINOTRANSFERASE 111 U/L (21-72); ALBUMIN 4.4 g/dL (3.5-5.0); ALCOHOL 101 mg/dL (NONE DETECTED); ALKALINE PHOSPHATASE 127 U/L (38-126); ANION GAP 13 (5-19); ASPARTATE AMINO TRANSFERASE 118 U/L (17-59); BILIRUBIN,DIRECT 0.4 mg/dL (0.0-0.4); BILIRUBIN,TOTAL 0.6 mg/dL (0.2-1.3); BLOOD UREA NITROGEN 9 mg/dL (7-20); CALCIUM 10.1 mg/dL (8.4-10.2); CARBON DIOXIDE 23 mmol/L (22-30); CHLORIDE 105 mmol/L (98-107); GLUCOSE 87 mg/dL (75-110); POTASSIUM 4.1 mmol/L (3.6-5.0); SODIUM 141.4 mmol/L (137-145); TOTAL PROTEIN 7.4 g/dL (6.3-8.2)
== END 2017-11-18 19:13 | disposition home or self-care (01) ==
LOC: ER 15:38
DX: R11.10 Vomiting, unspecified (principal); R19.7 Diarrhea, unspecified; F10.229 Alcohol dependence with intoxication, unspecified; J44.9 Chronic obstructive pulmonary disease, unspecified; Z88.0 Allergy status to penicillin; Z88.2 Allergy status to sulfonamides; Z87.11 Personal history of peptic ulcer disease; Z87.19 Personal history of other diseases of the digestive system; Z90.49 Acquired absence of other specified parts of digestive tract
CPT/HCPCS: 99284; 96360; 36415; 80307; 85025; 80053; J7030

== ENCOUNTER → 2017-11-18 | Outpatient (CLI) | payer MEDICAID ==
[2017-11-18 13:38] LABS: ABSOLUTE BASOPHILS # (AUTO) 0.1 10^3/uL (0.0-0.2); ABSOLUTE EOSINOPHILS # (AUTO) 0.1 10^3/uL (0.0-0.6); ABSOLUTE LYMPHOCYTES (AUTO) 1.4 10^3/uL (0.5-4.7); ABSOLUTE MONOCYTES (AUTO) 0.6 10^3/uL (0.1-1.4); ABSOLUTE NEUT (AUTO) 3.6 10^3/uL (1.7-8.2); BASOPHILS % (AUTO) 1.7 % (0-2); EOSINOPHILS % (AUTO) 1.8 % (0-6); HEMATOCRIT 44.6 % (37.9-51.0); HEMOGLOBIN 15.2 g/dL (13.5-17.0); LYMPHOCYTES % (AUTO) 24.6 % (13-45); MEAN CORPUSCULAR HEMOGLOBIN 33.8 pg (27.0-33.4); MEAN CORPUSCULAR VOLUME 99 fl (80-97); MONOCYTES % (AUTO) 9.7 % (3-13); PLATELET COUNT 210 10^3/uL (150-450); RED BLOOD COUNT 4.49 10^6/uL (4.35-5.55); RED CELL DISTRIBUTION WIDTH 13.7 % (11.5-14.0); SEGMENTED NEUTROPHILS % (AUTO) 62.2 % (42-78); TOTAL CELLS COUNTED % (AUTO) 100 %; WHITE BLOOD COUNT 5.7 10^3/uL (4.0-10.5)
[2017-11-18 13:46] LABS: APPEARANCE,URINE CLEAR; BILIRUBIN,URINE NEGATIVE (NEGATIVE); COLOR,URINE YELLOW; GLUCOSE, URINE NEGATIVE (NEGATIVE); KETONES,URINE NEGATIVE (NEGATIVE); LEUKOCYTE ESTERASE,URINE NEGATIVE (NEGATIVE); NITRITE,URINE NEGATIVE (NEGATIVE); PROTEIN,URINE NEGATIVE (NEGATIVE); URINE SPECIFIC GRAVITY 1.008; UROBILINOGEN,URINE NEGATIVE mg/dL (<2.0)
[2017-11-18 14:04] LABS: ALANINE AMINOTRANSFERASE 115 U/L (21-72); ALBUMIN 4.7 g/dL (3.5-5.0); ALKALINE PHOSPHATASE 155 U/L (38-126); ANION GAP 13 (5-19); ASPARTATE AMINO TRANSFERASE 125 U/L (17-59); BILIRUBIN,DIRECT 0.5 mg/dL (0.0-0.4); BILIRUBIN,TOTAL 0.9 mg/dL (0.2-1.3); BLOOD UREA NITROGEN 9 mg/dL (7-20); CALCIUM 10.1 mg/dL (8.4-10.2); CARBON DIOXIDE 23 mmol/L (22-30); CHLORIDE 105 mmol/L (98-107); CHOLESTEROL 217.28 mg/dL (0-200); GAMMA-GLUTAMYL TRANSFERASE 194 U/L (8-78); GLUCOSE 79 mg/dL (75-110); POTASSIUM 4.2 mmol/L (3.6-5.0); SODIUM 140.9 mmol/L (137-145); TOTAL PROTEIN 7.7 g/dL (6.3-8.2); TRIGLYCERIDES 59 mg/dL (<150)
[2017-11-18 14:15] LABS: DIRECT LDL 102 mg/dL (<100)
[2017-11-18 14:21] LABS: FREE T3 5.62 pg/mL (2.77-5.27); FREE T4 (FREE THYROXINE) 1.35 ng/dL (0.78-2.19)
[2017-11-18 14:35] LABS: THYROID STIMULATING HORMONE 2.91 uIU/mL (0.47-4.68)
[2017-11-19 08:41] LABS: HEPATITIS C VIRUS AB <0.1 s/co ratio (0.0-0.9)
[2017-11-19 09:31] LABS: HEPATITS B SURFACE ANTIGEN Negative (Negative)
== END ==
LOC: OD 12:11
PROVIDERS: ATTEND Emergency Medicine
DX: I02.0 Rheumatic chorea with heart involvement (principal)
CPT/HCPCS: 36415; 80053; 80061; 81001; 82977; 83036; 84403; 84439; 84443; 84481; 85025; 86592; 86701; 86803; 86804; 87340

== ENCOUNTER 2018-03-23 22:07 | Emergency (ER) | payer MEDICAID ==
[2018-03-23 22:27] VITALS: BP 110/51
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
== END 2018-03-24 01:09 | disposition left against medical advice (07) ==
LOC: ER 22:07
DX: F10.129 Alcohol abuse with intoxication, unspecified (principal); J44.9 Chronic obstructive pulmonary disease, unspecified; Z53.20 Procedure and treatment not carried out because of patient's decision for unspecified reasons; Z88.0 Allergy status to penicillin; Z88.2 Allergy status to sulfonamides
CPT/HCPCS: 99281

== ENCOUNTER 2018-04-08 15:29 | Emergency (ER) | payer MEDICAID, OTHER ==
[2018-04-08 15:39] VITALS: BP 121/78
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
== END 2018-04-08 15:59 | disposition home or self-care (01) ==
LOC: ER 15:29
DX: G89.29 Other chronic pain (principal); M79.604 Pain in right leg; M79.605 Pain in left leg; F17.210 Nicotine dependence, cigarettes, uncomplicated; J44.9 Chronic obstructive pulmonary disease, unspecified; Z59.0 Homelessness; Z88.0 Allergy status to penicillin; Z88.2 Allergy status to sulfonamides
CPT/HCPCS: 99283

== ENCOUNTER 2018-04-21 22:29 | Emergency (ER) | payer MEDICAID ==
[2018-04-21 22:43] VITALS: BP 125/89
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
== END 2018-04-22 14:12 | disposition home or self-care (01) ==
LOC: ER 22:29
PROC: 2W3DX1Z Immobilization of Left Lower Arm using Splint (ICD-10-PCS; principal; 2018-04-21)
DX: S62.339A Displaced fracture of neck of unspecified metacarpal bone, initial encounter for closed fracture (principal); M79.642 Pain in left hand; W22.8XXA Striking against or struck by other objects, initial encounter; F17.210 Nicotine dependence, cigarettes, uncomplicated; J44.9 Chronic obstructive pulmonary disease, unspecified
CPT/HCPCS: 99283

== ENCOUNTER 2018-04-29 22:57 | Emergency (ER) | payer MEDICAID ==
--- NOTE | 2018-04-30 03:18 | RADIOLOGY REPORT (SQ) ---
EXAM DESCRIPTION: XR ELBOW 3 VIEWS COMPLETED DATE/TME: 04/30/2018 00:00 CLINICAL HISTORY: 63 years Male, injury COMPARISON: None. Findings: Severe swelling of the posterior right elbow.. Bones, joints, and soft tissues of the RIGHT XR ELBOW 3 VIEWS appear otherwise intact. IMPRESSION: Olecranon swelling-bursitis.
--- NOTE | 2018-04-30 03:20 | RADIOLOGY REPORT (SQ) ---
EXAM DESCRIPTION: XR WRIST 3 OR MORE VIEWS COMPLETED DATE/TME: 04/30/2018 00:00 CLINICAL HISTORY: 63 years Male, injury COMPARISON: Left hand, April 22, 2018 Findings: Minimal radiocarpal osteoarthritis. Mild osteoarthritis of the first metacarpophalangeal joint. Fracture with lateral angulation deformity of the left fifth metatarsal carpal head partially imaged.. Bones, joints, and soft tissues of the LEFT XR WRIST 3 OR MORE VIEWS appear otherwise intact. IMPRESSION: Left fifth metacarpal fracture consistent with prior exam from April 22, 2018. Left wrist appears intact.
[2018-04-30] MEDS ORDERED: ACETAMINOPHEN 325 MG TABLET PO ONE (05:08)
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
[2018-04-30 07:53] VITALS: BP 126/81
== END 2018-04-30 07:55 | disposition home or self-care (01) ==
LOC: ER 22:57
DX: M70.31 Other bursitis of elbow, right elbow (principal); S62.339D Displaced fracture of neck of unspecified metacarpal bone, subsequent encounter for fracture with routine healing; X58.XXXD Exposure to other specified factors, subsequent encounter; F17.200 Nicotine dependence, unspecified, uncomplicated; Z88.0 Allergy status to penicillin; Z88.2 Allergy status to sulfonamides
CPT/HCPCS: 99284; 73080; 73110; J3490

== ENCOUNTER 2018-05-05 21:38 | Emergency (ER) | payer MEDICAID ==
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
== END 2018-05-06 04:11 | disposition left against medical advice (07) ==
LOC: ER 21:38
DX: F10.129 Alcohol abuse with intoxication, unspecified (principal); Z53.21 Procedure and treatment not carried out due to patient leaving prior to being seen by health care provider; F17.200 Nicotine dependence, unspecified, uncomplicated
CPT/HCPCS: 99285

== ENCOUNTER 2018-05-11 21:25 | Emergency (ER) | payer MEDICAID ==
[2018-05-11] MEDS ORDERED: NORMAL SALINE 1000 ML 1,000 ML IV ONE (22:29)
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
[2018-05-11 23:48] LABS: ABSOLUTE EOSINOPHILS # (AUTO) 0.1 10^3/uL (0.0-0.6); ABSOLUTE LYMPHOCYTES (AUTO) 2.2 10^3/uL (0.5-4.7); ABSOLUTE MONOCYTES (AUTO) 0.5 10^3/uL (0.1-1.4); ABSOLUTE NEUT (AUTO) 3.2 10^3/uL (1.7-8.2); BASOPHILS % (AUTO) 0.6 % (0-2); EOSINOPHILS % (AUTO) 2.2 % (0-6); HEMATOCRIT 42.5 % (37.9-51.0); HEMOGLOBIN 14.2 g/dL (13.5-17.0); LYMPHOCYTES % (AUTO) 36.8 % (13-45); MEAN CORPUSCULAR HGB CONC 33.5 g/dL (32.0-36.0); MEAN CORPUSCULAR VOLUME 99 fl (80-97); MONOCYTES % (AUTO) 8.4 % (3-13); PLATELET COUNT 282 10^3/uL (150-450); RED BLOOD COUNT 4.32 10^6/uL (4.35-5.55); RED CELL DISTRIBUTION WIDTH 16.2 % (11.5-14.0); TOTAL CELLS COUNTED % (AUTO) 100 %; WHITE BLOOD COUNT 6.1 10^3/uL (4.0-10.5)
[2018-05-11 23:51] LABS: APPEARANCE,URINE CLEAR; BILIRUBIN,URINE NEGATIVE (NEGATIVE); COLOR,URINE STRAW; GLUCOSE, URINE NEGATIVE (NEGATIVE); KETONES,URINE NEGATIVE (NEGATIVE); LEUKOCYTE ESTERASE,URINE NEGATIVE (NEGATIVE); NITRITE,URINE NEGATIVE (NEGATIVE); PROTEIN,URINE NEGATIVE (NEGATIVE); URINE SPECIFIC GRAVITY 1.003; UROBILINOGEN,URINE NEGATIVE mg/dL (<2.0)
[2018-05-12 00:09] LABS: ACETAMINOPHEN < 10 ug/mL (10-30); ALANINE AMINOTRANSFERASE 30 U/L (21-72); ALBUMIN 3.5 g/dL (3.5-5.0); ALCOHOL 184 mg/dL (NONE DETECTED); ALKALINE PHOSPHATASE 147 U/L (38-126); ANION GAP 10 (5-19); ASPARTATE AMINO TRANSFERASE 44 U/L (17-59); BILIRUBIN,DIRECT 0.2 mg/dL (0.0-0.4); BILIRUBIN,TOTAL 0.2 mg/dL (0.2-1.3); BLOOD UREA NITROGEN 10 mg/dL (7-20); CARBON DIOXIDE 28 mmol/L (22-30); CHLORIDE 104 mmol/L (98-107); GLUCOSE 89 mg/dL (75-110); POTASSIUM 4.2 mmol/L (3.6-5.0); SODIUM 141.6 mmol/L (137-145); TOTAL PROTEIN 6.5 g/dL (6.3-8.2)
[2018-05-12] MEDS ORDERED: IPRATROPIUM/ALBUTEROL 0.5-2.5 MG/3 ML AMPUL NEB ONE (05:47)
[2018-05-12 06:18] VITALS: BP 121/82
--- NOTE | 2018-05-12 09:32 | EKG REPORT ---
SEVERITY:- ABNORMAL ECG - SINUS RHYTHM LEFT ANTERIOR FASCICULAR BLOCK : Confirmed by: Danay Queen 12-May-2018 09:31:58
== END 2018-05-12 06:15 | disposition home or self-care (01) ==
LOC: ER 21:25
DX: F10.229 Alcohol dependence with intoxication, unspecified (principal); R06.2 Wheezing; F11.20 Opioid dependence, uncomplicated; Z59.0 Homelessness; F17.200 Nicotine dependence, unspecified, uncomplicated; J44.9 Chronic obstructive pulmonary disease, unspecified
CPT/HCPCS: 93005; 94640; 99284; 36415; 80307 ×2; 85025; 80053; 81001; 84484; 93010; J7620

== ENCOUNTER 2018-05-13 04:05 | Emergency (ER) | payer MEDICAID ==
[2018-05-13] MEDS ORDERED: ALBUTEROL SULFATE 0.083% NEB 2.5 MG/3 ML AMPUL NEB ONE (04:15)
[2018-05-13] MEDS ORDERED: ALBUTEROL SULFATE HFA (90 MCG/PUFF) 8 GM MDI (1 MDI/ER DISP) IH ONE (04:16)
[2018-05-13] MEDS ORDERED: DEXAMETHASONE SOD PHOS INJ 10 MG/1 ML VIAL IM ONE (05:13)
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
[2018-05-13 06:31] VITALS: BP 123/73
== END 2018-05-13 06:29 | disposition home or self-care (01) ==
LOC: ER 04:05
DX: J44.1 Chronic obstructive pulmonary disease with (acute) exacerbation (principal); F10.20 Alcohol dependence, uncomplicated; F17.210 Nicotine dependence, cigarettes, uncomplicated
CPT/HCPCS: 94640; 99285; 96372; J1100; J3490

== ENCOUNTER 2018-05-25 21:13 | Emergency (ER) | payer MEDICAID, OTHER ==
[2018-05-25] MEDS ORDERED: PREDNISONE 20 MG TABLET PO ONE (23:19)
[2018-05-25] MEDS ORDERED: IPRATROPIUM/ALBUTEROL 0.5-2.5 MG/3 ML AMPUL NEB ONE (23:19)
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
[2018-05-26 01:43] VITALS: BP 97/64
[2018-05-26] MEDS ORDERED: ALBUTEROL SULFATE HFA (90 MCG/PUFF) 8 GM MDI (1 MDI/ER DISP) IH ONE (04:47)
== END 2018-05-26 05:45 | disposition home or self-care (01) ==
LOC: ER 21:13
DX: J44.1 Chronic obstructive pulmonary disease with (acute) exacerbation (principal); F17.200 Nicotine dependence, unspecified, uncomplicated; E03.9 Hypothyroidism, unspecified; Z88.0 Allergy status to penicillin; Z88.2 Allergy status to sulfonamides
CPT/HCPCS: 94640; 99284; J7512; J3490; J7620

== ENCOUNTER 2018-06-01 22:08 | Emergency (ER) | payer MEDICAID, OTHER ==
[2018-06-01 22:40] VITALS: BP 102/71
[2018-06-02] MEDS ORDERED: IPRATROPIUM/ALBUTEROL 0.5-2.5 MG/3 ML AMPUL NEB ONE (02:33)
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
[2018-06-02] MEDS ORDERED: ALBUTEROL SULFATE HFA (90 MCG/PUFF) 8 GM MDI (1 MDI/ER DISP) IH ONE ×2 (06:10→06:11)
== END 2018-06-02 06:20 | disposition home or self-care (01) ==
LOC: ER 22:08
DX: J44.1 Chronic obstructive pulmonary disease with (acute) exacerbation (principal); R47.81 Slurred speech; F17.200 Nicotine dependence, unspecified, uncomplicated; Z88.0 Allergy status to penicillin; Z88.2 Allergy status to sulfonamides
CPT/HCPCS: 94640; 99284; J3490; J7620

== ENCOUNTER 2018-06-04 20:34 | Emergency (ER) | payer MEDICAID ==
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
[2018-06-05 04:44] VITALS: BP 112/69
== END 2018-06-05 06:00 | disposition home or self-care (01) ==
LOC: ER 20:34
DX: R06.02 Shortness of breath (principal); E03.9 Hypothyroidism, unspecified; J44.9 Chronic obstructive pulmonary disease, unspecified; F17.200 Nicotine dependence, unspecified, uncomplicated; Z88.0 Allergy status to penicillin; Z88.2 Allergy status to sulfonamides
CPT/HCPCS: 82962; 99283

== ENCOUNTER 2018-06-11 23:01 | Emergency (ER) | payer MEDICAID ==
[2018-06-11] MEDS ORDERED: IPRATROPIUM/ALBUTEROL 0.5-2.5 MG/3 ML AMPUL NEB ONE (23:10)
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
[2018-06-12 00:52] VITALS: BP 117/78
== END 2018-06-12 01:07 | disposition home or self-care (01) ==
LOC: ER 23:01
DX: J44.1 Chronic obstructive pulmonary disease with (acute) exacerbation (principal); R06.02 Shortness of breath; F10.920 Alcohol use, unspecified with intoxication, uncomplicated; F17.210 Nicotine dependence, cigarettes, uncomplicated
CPT/HCPCS: 94640; 99285; J7620

== ENCOUNTER 2018-06-23 00:49 | Emergency (ER) | payer MEDICAID ==
[2018-06-23] MEDS ORDERED: IPRATROPIUM/ALBUTEROL 0.5-2.5 MG/3 ML AMPUL NEB ONE ×2 (02:09→02:43)
[2018-06-23] MEDS: ALBUTEROL SULFATE 0.083% NEB 2.5 MG/3 ML AMPUL NEB SCH ×2 (02:20→07:03)
[2018-06-23] MEDS ORDERED: METHYLPREDNISOLONE INJ 125 MG/2 ML SDV IV ONE (02:44)
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
[2018-06-23] MEDS ORDERED: PREDNISONE 20 MG TABLET PO ONE (02:53)
--- NOTE | 2018-06-23 03:00 | RADIOLOGY REPORT (SQ) ---
EXAM DESCRIPTION: XR CHEST 1 VIEW COMPLETED DATE/TME: 06/23/2018 02:09 CLINICAL HISTORY: 63 years Male, shortness of breath COMPARISON: None. NUMBER OF VIEWS/TECHNIQUE: 1/AP FINDINGS: Adequate lung volume, clear parenchyma, normal cardiac silhouette, and intact bony thorax. IMPRESSION: No acute cardiopulmonary findings.
[2018-06-23] MEDS ORDERED: FUROSEMIDE INJ/PF 40 MG/4 ML SDV IV ONE (06:48)
[2018-06-23] MEDS ORDERED: POTASSIUM CHLORIDE 10 MEQ CAPSULE.ER PO ONE (06:51)
[2018-06-23 07:07] VITALS: BP 121/75
== END 2018-06-23 06:45 | disposition home or self-care (01) ==
LOC: ER 00:49
DX: J44.1 Chronic obstructive pulmonary disease with (acute) exacerbation (principal); R06.02 Shortness of breath; R05 Cough; F17.210 Nicotine dependence, cigarettes, uncomplicated; E03.9 Hypothyroidism, unspecified; Z79.899 Other long term (current) drug therapy; Z88.0 Allergy status to penicillin; Z88.2 Allergy status to sulfonamides; Z59.0 Homelessness
CPT/HCPCS: 94640 ×2; 99285; 71045; J7512; J7620

== ENCOUNTER 2018-07-01 19:19 | Emergency (ER) | payer MEDICAID ==
[2018-07-01] MEDS ORDERED: DIPH/PERTUSS(ACELL)/TETANUS VAC/PF 0.5 ML SYR (>=10YO) IM ONE (19:37)
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
[2018-07-01 21:07] VITALS: BP 119/76
== END 2018-07-01 21:06 | disposition home or self-care (01) ==
LOC: ER 19:19
DX: S59.901A Unspecified injury of right elbow, initial encounter (principal); S59.911A Unspecified injury of right forearm, initial encounter; S60.511A Abrasion of right hand, initial encounter; M25.531 Pain in right wrist; Y08.02XA Assault by strike by baseball bat, initial encounter; J44.9 Chronic obstructive pulmonary disease, unspecified; F10.20 Alcohol dependence, uncomplicated; F17.200 Nicotine dependence, unspecified, uncomplicated; Z88.0 Allergy status to penicillin; Z88.2 Allergy status to sulfonamides
CPT/HCPCS: 99283

== ENCOUNTER 2018-08-19 11:11 | Emergency (ER) | payer MEDICAID ==
[2018-08-19] MEDS ORDERED: CLINDAMYCIN HCL 150 MG CAPSULE PO ONE ×2 (12:13)
[2018-08-19] MEDS ORDERED: DIPH/PERTUSS(ACELL)/TETANUS VAC/PF 0.5 ML SYR (>=10YO) IM ONE (12:14)
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
[2018-08-19 13:02] LABS: ABSOLUTE EOSINOPHILS # (AUTO) 0.1 10^3/uL (0.0-0.6); ABSOLUTE LYMPHOCYTES (AUTO) 2.1 10^3/uL (0.5-4.7); ABSOLUTE MONOCYTES (AUTO) 0.6 10^3/uL (0.1-1.4); ABSOLUTE NEUT (AUTO) 3.5 10^3/uL (1.7-8.2); BASOPHILS % (AUTO) 0.7 % (0-2); EOSINOPHILS % (AUTO) 1.6 % (0-6); HEMATOCRIT 43.2 % (37.9-51.0); HEMOGLOBIN 14.7 g/dL (13.5-17.0); LYMPHOCYTES % (AUTO) 32.6 % (13-45); MEAN CORPUSCULAR HEMOGLOBIN 33.4 pg (27.0-33.4); MEAN CORPUSCULAR VOLUME 98 fl (80-97); MONOCYTES % (AUTO) 9.1 % (3-13); PLATELET COUNT 212 10^3/uL (150-450); RED CELL DISTRIBUTION WIDTH 15.2 % (11.5-14.0); TOTAL CELLS COUNTED % (AUTO) 100 %; WHITE BLOOD COUNT 6.3 10^3/uL (4.0-10.5)
[2018-08-19 13:04] LABS: APPEARANCE,URINE CLEAR; BILIRUBIN,URINE NEGATIVE (NEGATIVE); COLOR,URINE STRAW; GLUCOSE, URINE NEGATIVE (NEGATIVE); KETONES,URINE NEGATIVE (NEGATIVE); LEUKOCYTE ESTERASE,URINE TRACE (NEGATIVE); NITRITE,URINE NEGATIVE (NEGATIVE); PROTEIN,URINE NEGATIVE (NEGATIVE); URINE SPECIFIC GRAVITY 1.003; UROBILINOGEN,URINE NEGATIVE mg/dL (<2.0)
[2018-08-19 13:25] LABS: URINE AMPHETAMINES SCREEN NEGATIVE; URINE BARBITURATES SCREEN NEGATIVE; URINE BENZODIAZEPINES SCREEN NEGATIVE; URINE COCAINE SCREEN NEGATIVE; URINE MARIJUANA (THC) SCREEN NEGATIVE; URINE METHADONE SCREEN NEGATIVE; URINE PHENCYCLIDINE SCREEN NEGATIVE
[2018-08-19 13:47] LABS: ALANINE AMINOTRANSFERASE 64 U/L (21-72); ALBUMIN 4.4 g/dL (3.5-5.0); ALCOHOL 214 mg/dL (NONE DETECTED); ALKALINE PHOSPHATASE 149 U/L (38-126); ANION GAP 12 (5-19); ASPARTATE AMINO TRANSFERASE 85 U/L (17-59); BILIRUBIN,DIRECT 0.3 mg/dL (0.0-0.4); BILIRUBIN,TOTAL 0.4 mg/dL (0.2-1.3); BLOOD UREA NITROGEN 13 mg/dL (7-20); CALCIUM 9.2 mg/dL (8.4-10.2); CARBON DIOXIDE 22 mmol/L (22-30); CHLORIDE 106 mmol/L (98-107); GLUCOSE 79 mg/dL (75-110); POTASSIUM 4.4 mmol/L (3.6-5.0); SALICYLATE 5.9 mg/dL (2.0-20.0); SODIUM 139.9 mmol/L (137-145); TOTAL PROTEIN 7.3 g/dL (6.3-8.2)
[2018-08-19 13:59] LABS: ACETAMINOPHEN < 10 ug/mL (10-30)
[2018-08-19 14:33] VITALS: BP 133/74
--- NOTE | 2018-08-19 18:43 | EKG REPORT ---
SEVERITY:- ABNORMAL ECG - SINUS RHYTHM ABERRANT COMPLEX, POSSIBLY SUPRAVENTRICULAR LEFT ANTERIOR FASCICULAR BLOCK : Confirmed by: Handy Blanco MD 19-Aug-2018 18:43:08
== END 2018-08-19 14:33 | disposition home or self-care (01) ==
LOC: ER 11:11
DX: F10.220 Alcohol dependence with intoxication, uncomplicated (principal); I44.4 Left anterior fascicular block; S61.250A Open bite of right index finger without damage to nail, initial encounter; W50.3XXA Accidental bite by another person, initial encounter; F17.200 Nicotine dependence, unspecified, uncomplicated; J44.9 Chronic obstructive pulmonary disease, unspecified; Z88.0 Allergy status to penicillin; Z88.2 Allergy status to sulfonamides
CPT/HCPCS: 93005; 99283; 90471; 36415; 80307 ×4; 85025; 80053; 81001; 90715; 93010; J3490

== ENCOUNTER 2018-08-27 12:25 | Emergency (ER) | payer OTHER ==
[2018-08-27] MEDS ORDERED: DIPH/PERTUSS(ACELL)/TETANUS VAC/PF 0.5 ML SYR (>=10YO) IM ONE (13:15)
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
[2018-08-27 14:05] LABS: APPEARANCE,URINE CLEAR; BILIRUBIN,URINE NEGATIVE (NEGATIVE); COLOR,URINE COLORLESS; GLUCOSE, URINE NEGATIVE (NEGATIVE); KETONES,URINE NEGATIVE (NEGATIVE); LEUKOCYTE ESTERASE,URINE NEGATIVE (NEGATIVE); NITRITE,URINE NEGATIVE (NEGATIVE); PROTEIN,URINE NEGATIVE (NEGATIVE); URINE SPECIFIC GRAVITY 1.002; UROBILINOGEN,URINE NEGATIVE mg/dL (<2.0)
[2018-08-27 14:31] LABS: ABSOLUTE EOSINOPHILS # (AUTO) 0.1 10^3/uL (0.0-0.6); ABSOLUTE LYMPHOCYTES (AUTO) 2.1 10^3/uL (0.5-4.7); ABSOLUTE MONOCYTES (AUTO) 0.5 10^3/uL (0.1-1.4); ABSOLUTE NEUT (AUTO) 2.5 10^3/uL (1.7-8.2); BASOPHILS % (AUTO) 0.6 % (0-2); EOSINOPHILS % (AUTO) 2.6 % (0-6); HEMATOCRIT 41.6 % (37.9-51.0); HEMOGLOBIN 14.3 g/dL (13.5-17.0); LYMPHOCYTES % (AUTO) 39.9 % (13-45); MEAN CORPUSCULAR HEMOGLOBIN 33.7 pg (27.0-33.4); MEAN CORPUSCULAR HGB CONC 34.4 g/dL (32.0-36.0); MEAN CORPUSCULAR VOLUME 98 fl (80-97); MONOCYTES % (AUTO) 9.5 % (3-13); PLATELET COUNT 174 10^3/uL (150-450); RED BLOOD COUNT 4.24 10^6/uL (4.35-5.55); RED CELL DISTRIBUTION WIDTH 14.8 % (11.5-14.0); SEGMENTED NEUTROPHILS % (AUTO) 47.4 % (42-78); TOTAL CELLS COUNTED % (AUTO) 100 %; WHITE BLOOD COUNT 5.4 10^3/uL (4.0-10.5)
[2018-08-27 15:01] LABS: ACETAMINOPHEN < 10 ug/mL (10-30); ALANINE AMINOTRANSFERASE 141 U/L (21-72); ALBUMIN 4.1 g/dL (3.5-5.0); ALCOHOL 265 mg/dL (NONE DETECTED); ALKALINE PHOSPHATASE 111 U/L (38-126); ANION GAP 13 (5-19); ASPARTATE AMINO TRANSFERASE 167 U/L (17-59); BILIRUBIN,DIRECT 0.3 mg/dL (0.0-0.4); BILIRUBIN,TOTAL 0.3 mg/dL (0.2-1.3); BLOOD UREA NITROGEN 13 mg/dL (7-20); CALCIUM 9.1 mg/dL (8.4-10.2); CARBON DIOXIDE 23 mmol/L (22-30); CHLORIDE 107 mmol/L (98-107); GLUCOSE 96 mg/dL (75-110); SALICYLATE < 1.0 mg/dL (2.0-20.0); SODIUM 142.8 mmol/L (137-145)
[2018-08-27 15:04] LABS: URINE AMPHETAMINES SCREEN NEGATIVE; URINE BARBITURATES SCREEN NEGATIVE; URINE COCAINE SCREEN NEGATIVE; URINE MARIJUANA (THC) SCREEN NEGATIVE; URINE METHADONE SCREEN NEGATIVE; URINE PHENCYCLIDINE SCREEN NEGATIVE
[2018-08-27 15:05] LABS: URINE BENZODIAZEPINES SCREEN NEGATIVE
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
[2018-08-27] MEDS ORDERED: IBUPROFEN 600 MG TABLET PO ONE (17:54)
[2018-08-27] MEDS: ALBUTEROL SULFATE HFA (90 MCG/PUFF) 8 GM MDI (1 MDI/ER DISP) IH PRN (18:00)
[2018-08-28] MEDS: ALBUTEROL SULFATE HFA (90 MCG/PUFF) 8 GM MDI (1 MDI/ER DISP) IH PRN ×4 (00:09→18:04)
--- NOTE | 2018-08-28 09:20 | ER Document Report ---
Doctor's Note Notes: 08/28/18 09:19 63-year-old male with a history of alcohol abuse with mom recently passing away 3 years ago who presented intoxicated with cutting bilateral arms. Vital signs are stable. Labs as recorded. Awaiting psychiatry/psychology evaluation.
[2018-08-28] MEDS: BENZTROPINE MESYLATE 1 MG TABLET PO SCH (13:55)
[2018-08-28] MEDS: CHLORPROMAZINE HCL 50 MG TABLET PO SCH ×2 (13:55→19:09)
--- NOTE | 2018-08-28 15:08 | EKG REPORT ---
SEVERITY:- ABNORMAL ECG - SINUS RHYTHM LEFT ANTERIOR FASCICULAR BLOCK : Confirmed by: Danay Queen 28-Aug-2018 15:07:27
[2018-08-28] MEDS ORDERED: ACETAMINOPHEN 325 MG TABLET ONE (15:53)
[2018-08-28] MEDS ORDERED: ACETAMINOPHEN 325 MG TABLET PO ONE ×2 (15:54→20:21)
[2018-08-28] MEDS ORDERED: NICOTINE 21 MG/24 HR PATCH.TD24 TD ONE (18:51)
[2018-08-29] MEDS: CHLORPROMAZINE HCL 50 MG TABLET PO SCH ×4 (02:23→22:31)
[2018-08-29] MEDS: ALBUTEROL SULFATE HFA (90 MCG/PUFF) 8 GM MDI (1 MDI/ER DISP) IH PRN (08:52)
[2018-08-29] MEDS ORDERED: NICOTINE 21 MG/24 HR PATCH.TD24 TD ONE (09:32)
[2018-08-29] MEDS ORDERED: ACETAMINOPHEN 325 MG TABLET PO ONE (09:32)
--- NOTE | 2018-08-29 09:32 | ER Document Report ---
Doctor's Note Notes: Patient seen and evaluated by myself. Patient was brought to the emergency department by EMS for intoxication and suicidal ideations. Patient had multiple cut perdue to his bilateral arms. Patient states that his mother recently and has him feeling depressed and suicidal. No issues overnight per nursing. Patient's vital signs are stable. Patient has no complaints in the room. Awaiting behavioral health recommendations. 08/29/18 18:34 Behavioral health evaluated the patient. They recommend continuing to observe the patient tonight. They will reevaluate the patient tomorrow and make further recommendations.
[2018-08-29] MEDS: BENZTROPINE MESYLATE 1 MG TABLET PO SCH (10:06)
[2018-08-30] MEDS ORDERED: ACETAMINOPHEN 325 MG TABLET PO ONE ×3 (01:24→22:20)
[2018-08-30] MEDS: CHLORPROMAZINE HCL 50 MG TABLET PO SCH ×4 (03:54→19:56)
[2018-08-30] MEDS: ALBUTEROL SULFATE HFA (90 MCG/PUFF) 8 GM MDI (1 MDI/ER DISP) IH PRN (07:49)
--- NOTE | 2018-08-30 09:12 | ER Document Report ---
Doctor's Note Notes: Patient seen and evaluated by myself. Patient was brought in by EMS for intoxication and suicidal ideations. Patient is currently grieving his mother's and has been feeling suicidal. He also has a history of alcohol abuse. No issues overnight per nursing. Patient's vital signs are stable. Patient has no complaints in the room. He denies any current suicidal ideations, homicidal ideations, delusions, hallucinations. Behavioral health is working to get the patient into a two-year substance abuse program. 08/30/18 18:20 Still working at getting patient into a 2 year substance abuse program. Will keep patient overnight and try again tomorrow.
--- NOTE | 2018-08-30 09:59 | PSYCHOLOGICAL NOTE ---
Psych Note - Psych Note Date seen by psych provider: 08/29/18 Time seen by psych provider: 13:00 - Re-evaluation Psych Note: Met with Patient who reported his mother last week in [place] and his entire family was able to be present for the except him. He was very tearful and explained he wished he could be there but was not able to due to finances and outstanding legal charges. Patient went on to report he cut his wrists because he felt as though he now had no one who really cared about him and no one would miss him if he was gone from this world. Patient has a long standing issue with alcoholism and depression and was intoxicated at the time of suicide attempt. Patient reported he wished to go to [facility] because it had helped him in the past though he was unable to describe how it had helped him except that he was sober during the time of his admission. Patient was offered two different [employer] inpatient residential substance abuse treatment programs and he was adamant against [facility] in [place]. He was offered [facility] near [place] and explained the application process. He indicated he is interested but would need assistance with the application because he has difficulty with reading and writing. He was advised that could be arranged but also told there was a $300 application fee only otherwise the program was free and he would need to find his own transportation to the program once accepted and a bed was available. Patient has multiple court hearing scheduled for September 02, 2018 and was advised he would need to maintain contact with his condenser tube tender and bookkeeping service sales agent before leaving the area and if he was going to miss the court dates. Patient was also advised he go into a 7 day detox facility and they could assist him with getting into a longer residential program should he still desire that course of treatment. Discussion with Patient regarding his drinking and taking medications, and that it was dangerous and he would not receive any medications from the psychiatric provider upon discharge given his drinking patterns. He was encouraged to enter into voluntary detox if he was waiting for the [facility] program to at least start his recovery process. Patient was advised his information had been sent to multiple hospitals seeking inpatient psychiatric hospitalization and at this time he had been denied by most of the facilities for various reasons. He stated he was not suicidal any longer but knows he needs help with his drinking which will hopefully help his depression. 1. Diagnoses: 1. [phone]. 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 He will be reassessed tomorrow for discharge after assisting him with completion of application for residential substance abuse treatment. Patient is in agreement with this plan and willing to cooperate with the application process. He has a home to return to and friends in the community with whom he connects with. He has been encouraged to attend [facility], go to voluntary inpatient detox to start the recovery process and connect with his family to assist in the grieving process.
[2018-08-30] MEDS: BENZTROPINE MESYLATE 1 MG TABLET PO SCH (10:02)
[2018-08-30] MEDS ORDERED: NICOTINE 21 MG/24 HR PATCH.TD24 TD ONE (19:08)
[2018-08-31] MEDS: CHLORPROMAZINE HCL 50 MG TABLET PO SCH ×3 (02:09→13:42)
[2018-08-31] MEDS ORDERED: IBUPROFEN 600 MG TABLET PO ONE (02:13)
[2018-08-31] MEDS: ALBUTEROL SULFATE HFA (90 MCG/PUFF) 8 GM MDI (1 MDI/ER DISP) IH PRN ×2 (07:38→13:53)
--- NOTE | 2018-08-31 09:11 | ER Document Report ---
Doctor's Note Notes: 08/31/18 09:44 Patient seen and evaluated by myself. He is brought to the emergency department for intoxication and suicidal ideations. No issues overnight per nursing. Patient's vital signs are stable. He has no complaints in the room. He is currently eating breakfast. Patient denies any current suicidal ideations, homicidal ideations, delusions, hallucinations. [facility] is working to get him into a 2-year substance abuse program. 08/31/18 14:02 [facility] evaluated the patient. They are unable to get the patient into a 2-year substance abuse program today. The program will call the patient and he can go on his own. Patient is comfortable with plan of care. He denies any suicidal ideations, homicidal ideations, delusions, hallucinations.
[2018-08-31] MEDS: BENZTROPINE MESYLATE 1 MG TABLET PO SCH (09:47)
[2018-08-31 13:08] VITALS: BP 130/70
== END 2018-08-31 14:30 | disposition home or self-care (01) ==
LOC: ER 12:25
DX: S41.112A Laceration without foreign body of left upper arm, initial encounter (principal); S41.111A Laceration without foreign body of right upper arm, initial encounter; S51.812A Laceration without foreign body of left forearm, initial encounter; S51.811A Laceration without foreign body of right forearm, initial encounter; X78.8XXA Intentional self-harm by other sharp object, initial encounter; Y92.414 Local residential or business street as the place of occurrence of the external cause; Z63.4 Disappearance and death of family member; F10.229 Alcohol dependence with intoxication, unspecified; F32.89 Other specified depressive episodes; R40.0 Somnolence; J44.9 Chronic obstructive pulmonary disease, unspecified; F17.200 Nicotine dependence, unspecified, uncomplicated; Z23 Encounter for immunization; Z88.0 Allergy status to penicillin; Z88.2 Allergy status to sulfonamides
CPT/HCPCS: 93005; 99285; 90471; 36415; 80307 ×4; 85025; 80053; 81001; 90715; 93010; J3490 ×17

== ENCOUNTER 2018-09-26 08:39 | Emergency (ER) | payer MEDICAID, OTHER ==
[2018-09-26] MEDS ORDERED: THIAMINE HCL 100 MG, FOLIC ACID 1 MG in NORMAL SALINE 250 ML IV ONE (08:51)
[2018-09-26] MEDS ORDERED: NORMAL SALINE 1000 ML 1,000 ML IV PRN (08:51)
[2018-09-26 09:03] VITALS: BP 97/59
[2018-09-26] MEDS ORDERED: IPRATROPIUM/ALBUTEROL 0.5-2.5 MG/3 ML AMPUL NEB ONE (09:32)
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
== END 2018-09-26 11:08 | disposition home or self-care (01) ==
LOC: ER 08:39
DX: F10.920 Alcohol use, unspecified with intoxication, uncomplicated (principal); R06.2 Wheezing; Z59.0 Homelessness; J44.9 Chronic obstructive pulmonary disease, unspecified; F17.200 Nicotine dependence, unspecified, uncomplicated
CPT/HCPCS: 99284

== ENCOUNTER 2018-09-26 20:55 | Emergency (ER) | payer MEDICAID ==
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
[2018-09-28 02:36] VITALS: BP 105/68
== END 2018-09-26 22:14 | disposition home or self-care (01) ==
LOC: ER 20:55
DX: F10.920 Alcohol use, unspecified with intoxication, uncomplicated (principal); F17.200 Nicotine dependence, unspecified, uncomplicated; J44.9 Chronic obstructive pulmonary disease, unspecified
CPT/HCPCS: 99283

== ENCOUNTER 2018-10-02 20:50 | Emergency (ER) | payer MEDICAID, OTHER ==
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
[2018-10-03 00:04] VITALS: BP 117/83
--- NOTE | 2018-10-03 08:48 | EKG REPORT ---
SEVERITY:- ABNORMAL ECG - SINUS RHYTHM LEFT ANTERIOR FASCICULAR BLOCK : Confirmed by: Handy Blanco MD 03-Oct-2018 08:47:53
== END 2018-10-03 00:04 | disposition home or self-care (01) ==
LOC: ER 20:50
DX: F10.920 Alcohol use, unspecified with intoxication, uncomplicated (principal); J44.9 Chronic obstructive pulmonary disease, unspecified; R06.02 Shortness of breath; Z88.0 Allergy status to penicillin; Z88.2 Allergy status to sulfonamides
CPT/HCPCS: 93005; 93010; 99285

== ENCOUNTER 2019-01-28 06:17 | Emergency (ER) | payer OTHER, MEDICAID ==
[2019-01-28 06:37] VITALS: BP 121/76
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
== END 2019-01-28 07:34 | disposition home or self-care (01) ==
LOC: ER 06:17
DX: E07.9 Disorder of thyroid, unspecified (principal); Z88.0 Allergy status to penicillin; Z88.2 Allergy status to sulfonamides
CPT/HCPCS: 99283

== ENCOUNTER → 2019-01-28 | Outpatient (CLI) | payer OTHER ==
[2019-01-28 12:01] LABS: HEMATOCRIT 40.3 % (37.9-51.0); HEMOGLOBIN 13.5 g/dL (13.5-17.0); MEAN CORPUSCULAR HEMOGLOBIN 31.4 pg (27.0-33.4); MEAN CORPUSCULAR HGB CONC 33.5 g/dL (32.0-36.0); MEAN CORPUSCULAR VOLUME 94 fl (80-97); PLATELET COUNT 182 10^3/uL (150-450); RED CELL DISTRIBUTION WIDTH 14.4 % (11.5-14.0); WHITE BLOOD COUNT 6.8 10^3/uL (4.0-10.5)
[2019-01-28 12:15] LABS: ALANINE AMINOTRANSFERASE 31 U/L (21-72); ALBUMIN 3.8 g/dL (3.5-5.0); ALKALINE PHOSPHATASE 110 U/L (38-126); ANION GAP 8 (5-19); ASPARTATE AMINO TRANSFERASE 26 U/L (17-59); BILIRUBIN,DIRECT 0.3 mg/dL (0.0-0.4); BILIRUBIN,TOTAL 0.5 mg/dL (0.2-1.3); BLOOD UREA NITROGEN 7 mg/dL (7-20); CARBON DIOXIDE 31 mmol/L (22-30); CHLORIDE 105 mmol/L (98-107); GLUCOSE 84 mg/dL (75-110); POTASSIUM 4.3 mmol/L (3.6-5.0); TOTAL PROTEIN 6.7 g/dL (6.3-8.2)
== END ==
LOC: LAB 11:31
PROVIDERS: ATTEND Internal Medicine Pulmonary Disease
DX: E03.9 Hypothyroidism, unspecified (principal)
CPT/HCPCS: 36415; 80053; 84443; 85027